=== PATIENT | female | born 1995 | race Caucasian/White ===

== ENCOUNTER 2021-05-31 23:05 | Emergency (ER) | payer OTHER, SELFPAY ==
--- NOTE | ~2021-05-31 | XR_ITS ---
EXAMINATION: XR ABDOMEN KUB CLINICAL INDICATION: Missing suture needle COMPARISON: Previous CT of the abdomen and pelvis July 2017 TECHNIQUE: AP view of the abdomen. FINDINGS: The bowel gas pattern is normal. There is an IUD in the pelvis. There is a surgical device seen to the right of the IUD the pelvis. There is a nasogastric tube with tip projecting over the proximal stomach/GE junction region. There is an endotracheal tube with tip 4.4 cm of the sammy above the sammy. There are 2 parallel curvilinear densities that projects over the right mid chest measuring length of 15 cm and width of 1 to 2 mm of uncertain etiology. No needle is seen. The bowel gas pattern is normal. There is no free air. The visualized lung bases are clear. Bony structures are normal. XR/XR abdomen 1V IMPRESSION: IUD in the pelvis. Likely surgical device in the pelvis to the right of the IUD. Nasogastric tube tip projects over the GE junction. Satisfactory position of endotracheal tube. 2 parallel curvilinear linear densities project over the right mid lung measuring length of approximately 15 cm of uncertain etiology. No needle seen.
--- NOTE | ~2021-05-31 | US_ITS ---
EXAMINATION: US OBSTETRICAL ULTRASOUND CLINICAL INFORMATION: Left-sided pain for 6 hours. Vaginal bleeding. History of 2 C-sections. [address]UD in place. COMPARISON: CT dated 07/29/2017. LMP: 05/16/2021. Gestational age by maternal dates is 2 weeks, 2 days. Estimated date of delivery by maternal dates is 02/20/2022. TECHNIQUE: Ultrasound of the maternal pelvis is performed using transabdominal and transvaginal transducers. Transvaginal imaging is performed due to inadequate visualization transabdominally. M-mode Doppler is also performed. FINDINGS: No intrauterine gestational sac is identified. IUD present within the uterus, appropriately positioned. MATERNAL ADNEXA: The right maternal ovary measures 3.8 x 2.6 x 2.2 cm. Normal arterial and venous waveforms present. The left maternal ovary measures 3.9 x 3.6 x 2.7 cm. There is a 2.0 cm follicle within the left ovary. Normal arterial and venous waveforms present. No adnexal mass is evident. Moderately large volume of fluid within the pelvis. US/US OB pelvic and transvaginal IMPRESSION: * No intrauterine is identified. * No ectopic is seen on the images submitted for review. * Moderate volume pelvic free fluid is nonspecific. * Please correlate with serial hCG levels to document continued decline if missed is suspected. If there is concern for ectopic with rupture, CT is indicated.
[2021-05-31 23:20] VITALS: BP 150/96; PULSE 131; RESP 22; TEMP 37.6; O2SAT 99; BMI 29.0
--- NOTE | 2021-05-31 23:33 | ED.ABDPAIN ---
HPI - Abdominal Pain General Chief Complaint: Abdominal Pain <NAVID Kitchen Last Filed: 06/01/21 02:15> Stated Complaint: abd pain, <NAVID Kitchen Last Filed: 06/01/21 02:15> Time Seen by Provider: 05/31/21 23:09 <NAVID Kitchen Last Filed: 06/01/21 02:15> Source: patient <NAVID Kitchen Last Filed: 06/01/21 02:15> Mode of arrival: ambulatory <NAVID Kitchen Last Filed: 06/01/21 02:15> Limitations: no limitations <NAVID Kitchen Last Filed: 06/01/21 02:15> History of Present Illness HPI narrative: 25-year-old female previously healthy here with reports of left-sided abdominal pain which began around 19:00 this evening. She patient tells me that for the last 3 days she has had vaginal bleeding which has been quite heavy using about 1 pad per hour. No pain until tonight when the pain began quite suddenly around 19:00. It is associated with vomiting. There is no associated diarrhea, urinary symptoms or constipation. Patient tells me her last BM was this morning and normal. Patient has had some breast tenderness and discomfort and so she took a home test today that was positive. Her last menstrual cycle was 2 weeks ago. She has an IUD. <NAVID Kitchen Last Filed: 06/01/21 02:15> Related Data Allergies/Adverse Reactions: Allergies Allergy/AdvReac Type Severity Reaction Status Date / Time No Known Allergies Allergy Unverified 12/29/19 17:59 <NAVID Kitchen Last Filed: 06/01/21 02:15> Review of Systems Review of Systems Yes all other systems are reviewed and are negative <NAVID Kitchen Last Filed: 06/01/21 02:15> Constitutional: Reports no additional constitutional complaints, Denies body ache(s), Denies chills, Denies fever(s), Denies headache(s) and Denies weakness <NAVID Kitchen Last Filed: 06/01/21 02:15> Eyes: Reports no additional eye complaints and Denies change in vision <Laina Jang NP - Last Filed: 06/01/21 02:15> Reports system reviewed and no additional complaints, except as documented, Denies dizziness, Denies headache(s), Denies nasal congestion, Denies nasal discharge and Denies neck pain <Laina Jang NP - Last Filed: 06/01/21 02:15> Cardiovascular: Reports no additional cardiovascular complaints, Denies chest pain, Denies leg edema and Denies dyspnea <Laina Jang NP - Last Filed: 06/01/21 02:15> Respiratory: Reports no additional respiratory complaints, Denies cough and Denies dyspnea <Laina Jang NP - Last Filed: 06/01/21 02:15> Gastrointestinal: Reports no additional gastrointestinal complaints, Reports abdominal pain, Denies diarrhea, Reports nausea and Reports vomiting <Laina Jang NP - Last Filed: 06/01/21 02:15> Genitourinary: Reports no additional female genitourinary complaints, Reports abnormal vaginal bleeding and Denies urinary incontinence <Laian Jang NP - Last Filed: 06/01/21 02:15> Musculoskeletal: Reports no additional musculoskeletal complaints, Denies back pain, Denies arthralgias, Denies joint swelling, Denies neck pain, Denies numbness and Denies tingling <Laina Jang NP - Last Filed: 06/01/21 02:15> Skin/Breast: Reports system reviewed and no additional complaints, except as docu and Denies rash <Laina Jang NP - Last Filed: 06/01/21 02:15> Reports system reviewed and no additional complaints, except as documented, Denies dizziness, Denies headache(s), Denies numbness, Denies tingling and Denies weakness <Laina Jang NP - Last Filed: 06/01/21 02:15> PMFSH Past Medical History Attestation statement: The following information was validated with the patient. <Laina Jang NP - Last Filed: 06/01/21 02:15> Source: old records reviewed and nursing notes reviewed <Laina Jang NP - Last Filed: 06/01/21 02:15> Social History Social History: Social History Alcohol intake: current Patient Tobacco Use Status: Never used Tobacco Use of substances other than those prescribed or required for medical reasons: No Advance Directives: No Patient : Yes <Laina Jang NP - Last Filed: 06/01/21 02:15> Physical Exam ED Vital Signs: Vital Signs - 24 hr 05/31/21 23:20 06/01/21 00:01 06/01/21 02:22 Temperature 99.6 F 98.3 F 97.9 F Pulse Rate 131 H 95 81 Respiratory Rate 22 H 16 12 Blood Pressure 150/96 H 141/73 H 123/65 Pulse Oximetry 99 97 97 BMI result Body Mass Index 29.0 <Laina Jang NP - Last Filed: 06/01/21 02:15> Vital Signs - 24 hr 05/31/21 23:20 06/01/21 00:01 06/01/21 02:22 Temperature 99.6 F 98.3 F 97.9 F Pulse Rate 131 H 95 81 Respiratory Rate 22 H 16 12 Blood Pressure 150/96 H 141/73 H 123/65 Pulse Oximetry 99 97 97 BMI result Body Mass Index 29.0 <Pepper Austin MD - Last Filed: 06/01/21 04:04> Const General: cooperative, healthy appearing, comfortable and no acute distress <Laina Jang NP - Last Filed: 06/01/21 02:15> Orientation/consciousness: patient oriented x3 <Laina Jang NP - Last Filed: 06/01/21 02:15> Limitations: no limitations <Laina Jang NP - Last Filed: 06/01/21 02:15> HENMT Head: Yes normal to inspection <Laina Jang NP - Last Filed: 06/01/21 02:15> Ears: hearing grossly normal bilaterally and TM's normal bilaterally <Laina Jang NP - Last Filed: 06/01/21 02:15> General nose exam: Normal external nose present <Laina Jang NP - Last Filed: 06/01/21 02:15> Face and sinus: Yes normal facial exam <Laina Jang NP - Last Filed: 06/01/21 02:15> Mouth: Normal oral and palatal mucosa present <Laina Jang NP - Last Filed: 06/01/21 02:15> Teeth and gingiva: dentition normal <Laina Jang NP - Last Filed: 06/01/21 02:15> Throat: Yes posterior oropharynx normal and Yes tonsils normal <Laina Jang NP - Last Filed: 06/01/21 02:15> Eyes General: appearance normal, both eyes and all related structures <Laina Jang NP - Last Filed: 06/01/21 02:15> Pupils: Equal, round and reactive pupils present <Laina Jang NP - Last Filed: 06/01/21 02:15> Neck Neck: Yes normal visual inspection, Yes full ROM, Yes no lymphadenopathy and Yes no meningeal signs <Laina Jang NP - Last Filed: 06/01/21 02:15> Chest Chest palpation & inspection: normal inspection of the chest <Laina Jang NP - Last Filed: 06/01/21 02:15> Resp Effort & Inspection: normal respiratory effort <Laina Jang NP - Last Filed: 06/01/21 02:15> Auscultation: clear to auscultation bilaterally <Laina Jang NP - Last Filed: 06/01/21 02:15> Cardio Rate: regular rate <Laina Jang NP - Last Filed: 06/01/21 02:15> Peripheral pulses: Peripheral pulses 2+ throughout <Laina Jang NP - Last Filed: 06/01/21 02:15> GI Inspection: Yes normal to inspection <Laina Jang NP - Last Filed: 06/01/21 02:15> Palpation (GI): Soft to palpation and Tenderness to palpation present (GI) (Left sided with guarding-no rebound) <Laina Jang NP - Last Filed: 06/01/21 02:15> General: Yes no CVA tenderness <Laina Jang NP - Last Filed: 06/01/21 02:15> Back/Spine/Pelvis Back: no CVA tenderness <Laina Jang NP - Last Filed: 06/01/21 02:15> Skin General skin exam: no rashes or lesions noted <Laina Jang NP - Last Filed: 06/01/21 02:15> Neuro General: patient oriented x3 and no meningeal signs <Laina Jang NP - Last Filed: 06/01/21 02:15> Cranial nerves: Yes CN's II-XII intact bilaterally, Yes Equal, round and reactive pupils present, Yes Bilaterally intact EOM present, Yes Nystagmus not present, Yes Normal facial strength present and Yes Midline tongue present <Laina Jang NP - Last Filed: 06/01/21 02:15> Cognition (Neuro): normal cognition <Laina Jang NP - Last Filed: 06/01/21 02:15> Gait exam (Neuro): Normal gait present <Laina Jang NP - Last Filed: 06/01/21 02:15> Motor exam (neuro): 5/5 motor strength present throughout <Laina Jang NP - Last Filed: 06/01/21 02:15> Sensory Exam: Normal double simultaneous stimulation for sensation <Laina Jang NP - Last Filed: 06/01/21 02:15> Extrem General: Yes normal to inspection, Yes no pedal edema and Yes no calf tenderness <Laina Jang NP - Last Filed: 06/01/21 02:15> Course Course Course Narrative: 25-year-old female here with reports of sudden onset of left-sided abdominal pain w/ vomiting which began at 19:00. Of note, patient has had some vaginal bleeding over the last 3 days and took a home test that was positive. LMP ? 2 weeks ago. On exam the patient has moderate left-sided abdominal tenderness with guarding but no rebound. She is tachycardic on arrival and vomiting. Her blood pressure is stable. Dr Austin brought direct to bedside for US. No free fluid seen. Will check labs, UA, urine , ultrasound to rule out hold the topic and/or ovarian torsion 0200-Urine is +. Beta quant 857. Hemoglobin is stable. Returned from US. Continued pain. Exquisitely tender per US tech on the left side during US. Will repeat analgesia and antiemetic. Signout to Dr Austin pending above. <Laina Jang NP - Last Filed: 06/01/21 02:15> Reevaluation(s) Reevaluation #1: I have discussed this case with Dr. Jack and repeated CBC, on review of ultrasound findings and in discussion with Radiology the fluid within the abdomen appears most consistent with blood. Plans are likely to take the patient to the OR. <Pepper Austin MD - Last Filed: 06/01/21 04:04> Time: 03:42 <Pepper Austin MD - Last Filed: 06/01/21 04:04> Reevaluation #2: Patient to the OR for diagnostic laparoscopy <Pepper Austin MD - Last Filed: 06/01/21 04:04> Time: 04:02 <Pepper Austin MD - Last Filed: 06/01/21 04:04> MDM - Abdominal Pain MDM Narrative Medical decision making narrative: Ovarian torsion, ectopic <Laina Jang NP - Last Filed: 06/01/21 02:15> Medical Records Attestation: I reviewed the patient's medical records. <Laina Jang NP - Last Filed: 06/01/21 02:15> Lab Data Attestation: I reviewed the patient's lab results. <Laina Jang NP - Last Filed: 06/01/21 02:15> Result diagrams: : 06/01/21 03:23 05/31/21 23:43 <Laina Jang NP - Last Filed: 06/01/21 02:15> Labs: Lab Results 05/31/21 05/31/21 05/31/21 Range/Units 23:43 23:43 23:43 WBC 12.6 H (4.8-10.8) X10*3/uL RBC 4.23 (4.20-5.50) X10*6/uL Hgb 12.4 (12.0-16.0) g/dl Hct 36.6 L (37.0-47.0) % MCV 86.5 (80.0-98.0) fL MCH 29.3 (27.0-33.0) pg MCHC 33.9 (31.0-35.0) g/dl RDW 12.5 (11.0-16.0) % Plt Count 312 (160-400) X10*3/uL MPV 10.6 (9.4-12.3) fL Immature Gran % (Auto) 0.2 (0.0-0.4) % Neut % (Auto) 67.0 (45-73) % Lymph % (Auto) 21.2 (20-40) % Greenlee % (Auto) 6.5 (2-11) % Eos % (Auto) 4.6 H (0-4) % Baso % (Auto) 0.5 (0-2) % Lymph # (Auto) 2.7 (1.2-4.9) X10*3/uL Greenlee # (Auto) 0.8 (0.1-1.2) X10*3/uL Eos # (Auto) 0.6 H (0.0-0.4) X10*3/uL Baso # (Auto) 0.1 (0.0-0.2) X10*3/uL Abs Immat Gran (auto) 0.03 (0.00-0.03) X10*3/uL Absolute Neuts (auto) 8.4 H (2.0-8.3) x10*3/uL Absolute Nucleated RBC 0.000 (0.0-0.012) X10*3/uL Nucleated RBC % (auto) 0.0 (0.0-0.2) /100WBC PT (9.9-13.0) SEC INR (0.9-1.1) Sodium 137 (135-145) mmol/L Potassium 3.6 (3.3-5.1) mmol/L Chloride 104 (96-108) mmol/L Carbon Dioxide 25 (22-29) mmol/L Anion Gap 12 (12-20) BUN 9 (9-16) mg/dL Creatinine 0.98 (0.5-1.4) mg/dL Estim Creat Clear Calc 93.7 Estimated GFR > 60 Random Glucose 112 (60-115) mg/dL Lactic Acid 1.5 (0.5-2.0) mmol/L Calcium 9.6 (8.4-10.2) mg/dL Total Bilirubin 0.2 (0.0-1.0) mg/dL Direct Bilirubin < 0.2 (0.0-0.5) mg/dL AST 14 (5-31) U/L ALT 21 (0-31) U/L Alkaline Phosphatase 88 (39-117) U/L Total Protein 6.9 (6.5-8.0) g/dL Albumin 4.5 (3.5-5.0) g/dL Beta HCG, Quant 857 mIU/mL Urine Color Urine Appearance Urine pH (5.0-8.0) Ur Specific [place] (1.005-1.025) Urine Protein (NEG-TRACE) MG/DL Urine Glucose (UA) (NEG) MG/DL Urine Ketones (NEG) MG/DL Urine Blood (NEG) Urine Nitrite (NEG) Ur Leukocyte Esterase (NEG) Urine Test (NEGATIVE) Blood Type 05/31/21 05/31/21 06/01/21 Range/Units 23:57 23:57 00:05 WBC (4.8-10.8) X10*3/uL RBC (4.20-5.50) X10*6/uL Hgb (12.0-16.0) g/dl Hct (37.0-47.0) % MCV (80.0-98.0) fL MCH (27.0-33.0) pg MCHC (31.0-35.0) g/dl RDW (11.0-16.0) % Plt Count (160-400) X10*3/uL MPV (9.4-12.3) fL Immature Gran % (Auto) (0.0-0.4) % Neut % (Auto) (45-73) % Lymph % (Auto) (20-40) % Greenlee % (Auto) (2-11) % Eos % (Auto) (0-4) % Baso % (Auto) (0-2) % Lymph # (Auto) (1.2-4.9) X10*3/uL Greenlee # (Auto) (0.1-1.2) X10*3/uL Eos # (Auto) (0.0-0.4) X10*3/uL Baso # (Auto) (0.0-0.2) X10*3/uL Abs Immat Gran (auto) (0.00-0.03) X10*3/uL Absolute Neuts (auto) (2.0-8.3) x10*3/uL Absolute Nucleated RBC (0.0-0.012) X10*3/uL Nucleated RBC % (auto) (0.0-0.2) /100WBC PT 10.1 (9.9-13.0) SEC INR 0.9 (0.9-1.1) Sodium (135-145) mmol/L Potassium (3.3-5.1) mmol/L Chloride (96-108) mmol/L Carbon Dioxide (22-29) mmol/L Anion Gap (12-20) BUN (9-16) mg/dL Creatinine (0.5-1.4) mg/dL Estim Creat Clear Calc Estimated GFR Random Glucose (60-115) mg/dL Lactic Acid (0.5-2.0) mmol/L Calcium (8.4-10.2) mg/dL Total Bilirubin (0.0-1.0) mg/dL Direct Bilirubin (0.0-0.5) mg/dL AST (5-31) U/L ALT (0-31) U/L Alkaline Phosphatase (39-117) U/L Total Protein (6.5-8.0) g/dL Albumin (3.5-5.0) g/dL Beta HCG, Quant mIU/mL Urine Color YELLOW Urine Appearance CLEAR Urine pH 6.0 (5.0-8.0) Ur Specific [place] 1.020 (1.005-1.025) Urine Protein NEG (NEG-TRACE) MG/DL Urine Glucose (UA) NEG (NEG) MG/DL Urine Ketones NEG (NEG) MG/DL Urine Blood NEG (NEG) Urine Nitrite NEG (NEG) Ur Leukocyte Esterase NEG (NEG) Urine Test (NEGATIVE) Blood Type B Positive 06/01/21 06/01/21 Range/Units 00:05 03:23 WBC 11.7 H (4.8-10.8) X10*3/uL RBC 3.76 L (4.20-5.50) X10*6/uL Hgb 11.0 L (12.0-16.0) g/dl Hct 32.7 L (37.0-47.0) % MCV 87.0 (80.0-98.0) fL MCH 29.3 (27.0-33.0) pg MCHC 33.6 (31.0-35.0) g/dl RDW 12.4 (11.0-16.0) % Plt Count 256 (160-400) X10*3/uL MPV 10.5 (9.4-12.3) fL Immature Gran % (Auto) 0.3 (0.0-0.4) % Neut % (Auto) 76.2 H (45-73) % Lymph % (Auto) 15.8 L (20-40) % Greenlee % (Auto) 5.4 (2-11) % Eos % (Auto) 2.0 (0-4) % Baso % (Auto) 0.3 (0-2) % Lymph # (Auto) 1.9 (1.2-4.9) X10*3/uL Greenlee # (Auto) 0.6 (0.1-1.2) X10*3/uL Eos # (Auto) 0.2 (0.0-0.4) X10*3/uL Baso # (Auto) 0.0 (0.0-0.2) X10*3/uL Abs Immat Gran (auto) 0.03 (0.00-0.03) X10*3/uL Absolute Neuts (auto) 8.9 H (2.0-8.3) x10*3/uL Absolute Nucleated RBC 0.000 (0.0-0.012) X10*3/uL Nucleated RBC % (auto) 0.0 (0.0-0.2) /100WBC PT (9.9-13.0) SEC INR (0.9-1.1) Sodium (135-145) mmol/L Potassium (3.3-5.1) mmol/L Chloride (96-108) mmol/L Carbon Dioxide (22-29) mmol/L Anion Gap (12-20) BUN (9-16) mg/dL Creatinine (0.5-1.4) mg/dL Estim Creat Clear Calc Estimated GFR Random Glucose (60-115) mg/dL Lactic Acid (0.5-2.0) mmol/L Calcium (8.4-10.2) mg/dL Total Bilirubin (0.0-1.0) mg/dL Direct Bilirubin (0.0-0.5) mg/dL AST (5-31) U/L ALT (0-31) U/L Alkaline Phosphatase (39-117) U/L Total Protein (6.5-8.0) g/dL Albumin (3.5-5.0) g/dL Beta HCG, Quant mIU/mL Urine Color Urine Appearance Urine pH (5.0-8.0) Ur Specific [place] (1.005-1.025) Urine Protein (NEG-TRACE) MG/DL Urine Glucose (UA) (NEG) MG/DL Urine Ketones (NEG) MG/DL Urine Blood (NEG) Urine Nitrite (NEG) Ur Leukocyte Esterase (NEG) Urine Test POSITIVE H (NEGATIVE) Blood Type <Laina Jang, [employer] - Last Filed: 06/01/21 02:15> Lab Results 05/31/21 05/31/21 05/31/21 Range/Units 23:43 23:43 23:43 WBC 12.6 H (4.8-10.8) X10*3/uL RBC 4.23 (4.20-5.50) X10*6/uL Hgb 12.4 (12.0-16.0) g/dl Hct 36.6 L (37.0-47.0) % MCV 86.5 (80.0-98.0) fL MCH 29.3 (27.0-33.0) pg MCHC 33.9 (31.0-35.0) g/dl RDW 12.5 (11.0-16.0) % Plt Count 312 (160-400) X10*3/uL MPV 10.6 (9.4-12.3) fL Immature Gran % (Auto) 0.2 (0.0-0.4) % Neut % (Auto) 67.0 (45-73) % Lymph % (Auto) 21.2 (20-40) % Greenlee % (Auto) 6.5 (2-11) % Eos % (Auto) 4.6 H (0-4) % Baso % (Auto) 0.5 (0-2) % Lymph # (Auto) 2.7 (1.2-4.9) X10*3/uL Greenlee # (Auto) 0.8 (0.1-1.2) X10*3/uL Eos # (Auto) 0.6 H (0.0-0.4) X10*3/uL Baso # (Auto) 0.1 (0.0-0.2) X10*3/uL Abs Immat Gran (auto) 0.03 (0.00-0.03) X10*3/uL Absolute Neuts (auto) 8.4 H (2.0-8.3) x10*3/uL Absolute Nucleated RBC 0.000 (0.0-0.012) X10*3/uL Nucleated RBC % (auto) 0.0 (0.0-0.2) /100WBC PT (9.9-13.0) SEC INR (0.9-1.1) Sodium 137 (135-145) mmol/L Potassium 3.6 (3.3-5.1) mmol/L Chloride 104 (96-108) mmol/L Carbon Dioxide 25 (22-29) mmol/L Anion Gap 12 (12-20) BUN 9 (9-16) mg/dL Creatinine 0.98 (0.5-1.4) mg/dL Estim Creat Clear Calc 93.7 Estimated GFR > 60 Random Glucose 112 (60-115) mg/dL Lactic Acid 1.5 (0.5-2.0) mmol/L Calcium 9.6 (8.4-10.2) mg/dL Total Bilirubin 0.2 (0.0-1.0) mg/dL Direct Bilirubin < 0.2 (0.0-0.5) mg/dL AST 14 (5-31) U/L ALT 21 (0-31) U/L Alkaline Phosphatase 88 (39-117) U/L Total Protein 6.9 (6.5-8.0) g/dL Albumin 4.5 (3.5-5.0) g/dL Beta HCG, Quant 857 mIU/mL Urine Color Urine Appearance Urine pH (5.0-8.0) Ur Specific [place] (1.005-1.025) Urine Protein (NEG-TRACE) MG/DL Urine Glucose (UA) (NEG) MG/DL Urine Ketones (NEG) MG/DL Urine Blood (NEG) Urine Nitrite (NEG) Ur Leukocyte Esterase (NEG) Urine Test (NEGATIVE) Blood Type 05/31/21 05/31/21 06/01/21 Range/Units 23:57 23:57 00:05 WBC (4.8-10.8) X10*3/uL RBC (4.20-5.50) X10*6/uL Hgb (12.0-16.0) g/dl Hct (37.0-47.0) % MCV (80.0-98.0) fL MCH (27.0-33.0) pg MCHC (31.0-35.0) g/dl RDW (11.0-16.0) % Plt Count (160-400) X10*3/uL MPV (9.4-12.3) fL Immature Gran % (Auto) (0.0-0.4) % Neut % (Auto) (45-73) % Lymph % (Auto) (20-40) % Greenlee % (Auto) (2-11) % Eos % (Auto) (0-4) % Baso % (Auto) (0-2) % Lymph # (Auto) (1.2-4.9) X10*3/uL Greenlee # (Auto) (0.1-1.2) X10*3/uL Eos # (Auto) (0.0-0.4) X10*3/uL Baso # (Auto) (0.0-0.2) X10*3/uL Abs Immat Gran (auto) (0.00-0.03) X10*3/uL Absolute Neuts (auto) (2.0-8.3) x10*3/uL Absolute Nucleated RBC (0.0-0.012) X10*3/uL Nucleated RBC % (auto) (0.0-0.2) /100WBC PT 10.1 (9.9-13.0) SEC INR 0.9 (0.9-1.1) Sodium (135-145) mmol/L Potassium (3.3-5.1) mmol/L Chloride (96-108) mmol/L Carbon Dioxide (22-29) mmol/L Anion Gap (12-20) BUN (9-16) mg/dL Creatinine (0.5-1.4) mg/dL Estim Creat Clear Calc Estimated GFR Random Glucose (60-115) mg/dL Lactic Acid (0.5-2.0) mmol/L Calcium (8.4-10.2) mg/dL Total Bilirubin (0.0-1.0) mg/dL Direct Bilirubin (0.0-0.5) mg/dL AST (5-31) U/L ALT (0-31) U/L Alkaline Phosphatase (39-117) U/L Total Protein (6.5-8.0) g/dL Albumin (3.5-5.0) g/dL Beta HCG, Quant mIU/mL Urine Color YELLOW Urine Appearance CLEAR Urine pH 6.0 (5.0-8.0) Ur Specific [place] 1.020 (1.005-1.025) Urine Protein NEG (NEG-TRACE) MG/DL Urine Glucose (UA) NEG (NEG) MG/DL Urine Ketones NEG (NEG) MG/DL Urine Blood NEG (NEG) Urine Nitrite NEG (NEG) Ur Leukocyte Esterase NEG (NEG) Urine Test (NEGATIVE) Blood Type B Positive 06/01/21 06/01/21 Range/Units 00:05 03:23 WBC 11.7 H (4.8-10.8) X10*3/uL RBC 3.76 L (4.20-5.50) X10*6/uL Hgb 11.0 L (12.0-16.0) g/dl Hct 32.7 L (37.0-47.0) % MCV 87.0 (80.0-98.0) fL MCH 29.3 (27.0-33.0) pg MCHC 33.6 (31.0-35.0) g/dl RDW 12.4 (11.0-16.0) % Plt Count 256 (160-400) X10*3/uL MPV 10.5 (9.4-12.3) fL Immature Gran % (Auto) 0.3 (0.0-0.4) % Neut % (Auto) 76.2 H (45-73) % Lymph % (Auto) 15.8 L (20-40) % Greenlee % (Auto) 5.4 (2-11) % Eos % (Auto) 2.0 (0-4) % Baso % (Auto) 0.3 (0-2) % Lymph # (Auto) 1.9 (1.2-4.9) X10*3/uL Greenlee # (Auto) 0.6 (0.1-1.2) X10*3/uL Eos # (Auto) 0.2 (0.0-0.4) X10*3/uL Baso # (Auto) 0.0 (0.0-0.2) X10*3/uL Abs Immat Gran (auto) 0.03 (0.00-0.03) X10*3/uL Absolute Neuts (auto) 8.9 H (2.0-8.3) x10*3/uL Absolute Nucleated RBC 0.000 (0.0-0.012) X10*3/uL Nucleated RBC % (auto) 0.0 (0.0-0.2) /100WBC PT (9.9-13.0) SEC INR (0.9-1.1) Sodium (135-145) mmol/L Potassium (3.3-5.1) mmol/L Chloride (96-108) mmol/L Carbon Dioxide (22-29) mmol/L Anion Gap (12-20) BUN (9-16) mg/dL Creatinine (0.5-1.4) mg/dL Estim Creat Clear Calc Estimated GFR Random Glucose (60-115) mg/dL Lactic Acid (0.5-2.0) mmol/L Calcium (8.4-10.2) mg/dL Total Bilirubin (0.0-1.0) mg/dL Direct Bilirubin (0.0-0.5) mg/dL AST (5-31) U/L ALT (0-31) U/L Alkaline Phosphatase (39-117) U/L Total Protein (6.5-8.0) g/dL Albumin (3.5-5.0) g/dL Beta HCG, Quant mIU/mL Urine Color Urine Appearance Urine pH (5.0-8.0) Ur Specific [place] (1.005-1.025) Urine Protein (NEG-TRACE) MG/DL Urine Glucose (UA) (NEG) MG/DL Urine Ketones (NEG) MG/DL Urine Blood (NEG) Urine Nitrite (NEG) Ur Leukocyte Esterase (NEG) Urine Test POSITIVE H (NEGATIVE) Blood Type <Pepper Austin MD - Last Filed: 06/01/21 04:04> Discharge Plan Discharge Clinical Impression: Hemoperitoneum, Abdominal pain, <Laina Jang NP - Last Filed: 06/01/21 02:15> Patient Disposition: Admitted As Inpatient <Laina Jang NP - Last Filed: 06/01/21 02:15>
[2021-05-31 23:48] LABS: MANUAL DIFF FLAG NO
[2021-05-31 23:49] LABS: Basophils Absolute Auto 0.1 X10*3/uL (0.0-0.2); Basophils Percent Auto 0.5 % (0-2); Eosinophils Absolute Auto 0.6 X10*3/uL (0.0-0.4); Eosinophils Percent Auto 4.6 % (0-4); Hematocrit 36.6 % (37.0-47.0); Hemoglobin 12.4 g/dl (12.0-16.0); Imm Gran Abs Auto 0.03 X10*3/uL (0.00-0.03); Imm Gran Pct Auto 0.2 % (0.0-0.4); Lymphocytes Absolute Auto 2.7 X10*3/uL (1.2-4.9); Lymphocytes Percent Auto 21.2 % (20-40); Mean Corpuscular HGB Conc 33.9 g/dl (31.0-35.0); Mean Corpuscular Hemoglobin 29.3 pg (27.0-33.0); Mean Corpuscular Volume 86.5 fL (80.0-98.0); Mean Platelet Volume 10.6 fL (9.4-12.3); Monocytes Absolute Auto 0.8 X10*3/uL (0.1-1.2); Monocytes Percent Auto 6.5 % (2-11); Neutrophils Absolute Auto 8.4 x10*3/uL (2.0-8.3); Platelet Count 312 X10*3/uL (160-400); Red Blood Count 4.23 X10*6/uL (4.20-5.50); Red Cell Distribution Width 12.5 % (11.0-16.0); White Blood Count 12.6 X10*3/uL (4.8-10.8)
[2021-06-01] VITALS (13 sets, daily range): BP systolic 109–143; BP diastolic 49–76; PULSE 75–121; RESP 12–18; TEMP 36.4–36.9; O2SAT 93–100
[2021-06-01 00:02] LABS: Lactic Acid 1.5 mmol/L (0.5-2.0)
[2021-06-01] MEDS: Morphine Sulfate 4 MG/ML CARTRIDGE IVPUSH ×2 (00:04→02:17)
[2021-06-01] MEDS: ondansetron HCL 4 MG/2 ML VIAL IVPUSH ×3 (00:04→09:51)
[2021-06-01] MEDS: 0.9 % Sodium Chloride 1,000 ML 999 ML IV (00:04)
[2021-06-01 00:10] LABS: Alanine Aminotransferase 21 U/L (0-31); Albumin Level 4.5 g/dL (3.5-5.0); Alkaline Phosphatase 88 U/L (39-117); Anion Gap 12 (12-20); Aspartate Amino Transferase 14 U/L (5-31); Bilirubin Direct < 0.2 mg/dL (0.0-0.5); Bilirubin Total 0.2 mg/dL (0.0-1.0); Blood Urea Nitrogen 9 mg/dL (9-16); Calcium 9.6 mg/dL (8.4-10.2); Carbon Dioxide 25 mmol/L (22-29); Chloride 104 mmol/L (96-108); Creatinine Clr Calc Pharmacy 93.7; Estimated Glomerular Filt Rate > 60; Glucose Random 112 mg/dL (60-115); Potassium 3.6 mmol/L (3.3-5.1); Sodium 137 mmol/L (135-145); Total Protein 6.9 g/dL (6.5-8.0)
[2021-06-01 00:13] LABS: Appearance Urine CLEAR; Color Urine YELLOW; Glucose Urine UA NEG (NEG); Leukocyte Esterase Urine NEG (NEG); Nitrite Urine NEG (NEG); Urine Blood NEG (NEG); Urine Ketones NEG (NEG); Urine Protein NEG (NEG-TRACE)
[2021-06-01 00:15] LABS: INTERNATIONAL NORM RATIO 0.9 (0.9-1.1); Prothrombin Time 10.1 SEC (9.9-13.0)
[2021-06-01 00:15] LABS: UPreg QC Valid YES; Urine Pregnancy POSITIVE (NEGATIVE)
[2021-06-01 00:16] LABS: HCG Quantitative 857 mIU/mL
--- NOTE | 2021-06-01 02:53 | PM.GYNCN ---
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 The pain was acute and sharp and started around 19:00. The patient has been having heavy vaginal bleeding last 3 days with passage of small blood clot.? There is no other associated GI or symptoms.? Home test today was done and was positive.? LMP was 2 weeks ago. She has an IUD. Blood type is B positive. Patient states that this is undesirable. A call to the radiologist Dr KELLY HENDRIX by regarding the fluid in the pelvis seen on ultrasound, he stated that it looks like low level internal echoes can be seen with blood i.e. hemoperitoneum. HCG 857 H and H at 23:43 was 12.4/36.6 repeated at 03:23 was 11/32.7. A pelvic ultrasound showed the following: No intrauterine gestational sac is identified. IUD present within the uterus, appropriately positioned. MATERNAL ADNEXA: ? ? The right maternal ovary measures 3.8 x 2.6 x 2.2 cm.? Normal arterial and venous waveforms present. The left maternal ovary measures 3.9 x 3.6 x 2.7 cm.? There is a 2.0 cm follicle within the left ovary. Normal arterial and venous waveforms present. No adnexal mass is evident.? Moderately large volume of fluid within the pelvis. 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 Review of Systems ROS Unobtainable: All systems reviewed & are unremarkable except as noted in HPI and below Cardiovascular: Denies Palpatations, Loss of consciousness or Chest pain Respiratory: Denies Cough, Wheezing or Shortness of breath Musculoskeletal: Denies Low back pain Gastrointestinal: Denies Heartburn, Constipation, Diarrhea, Nausea or Vomiting Genitourinary: Denies Pain with urination, Burning with urination or Urinary frequency Neurological: Denies Migranes Psychological: Denies Depression [facility] Social History Social History Alcohol intake: current Patient Tobacco Use Status: Never used Tobacco Use of substances other than those prescribed or required for medical reasons: No Advance Directives: No Patient : Yes Meds Allergies Allergy/AdvReac Type Severity Reaction Status Date / Time No Known Allergies Allergy Unverified 12/29/19 17:59 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 Physical Exam Vitals Vital signs: Temp Pulse Resp BP Pulse Ox 97.9 F 81 12 123/65 97 06/01/21 02:22 06/01/21 02:22 06/01/21 02:22 06/01/21 02:22 06/01/21 02:22 BMI result Body Mass Index 29.0 Constitutional General Appearance: Healthy appearing, Well-nourished and Well-developed Psychiatric Mood and Affect: active and alert, normal mood and normal affect Skin Appearance: No rashes and No lesions Lungs Respiratory Effort: No intercostal retractions Auscultation: Clear to auscultation Cardiovascular Auscultation: RRR Abdomen Auscultation/Inspection/Palpation: Normal bowel sounds, Soft, Non-distended and Tenderness Female Genitalia (Pelvic) Bladder/Urethra: Normal meatus Vulva: No lesions Uterus: Normal size and Tender Adnexa/Parametria: Adnexal Tenderness: Bilateral and Adnexal Mass: None Additional Comments: IUD string seen 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 - Results Labs CBC & Chem 7: 06/01/21 03:23 05/31/21 23:43 Labs: Short CBC 05/31/21 Range/Units 23:43 WBC 12.6 H (4.8-10.8) X10*3/uL Hgb 12.4 (12.0-16.0) g/dl Hct 36.6 L (37.0-47.0) % Plt Count 312 (160-400) X10*3/uL BMP 05/31/21 23:43 Sodium 137 Potassium 3.6 Chloride 104 Carbon Dioxide 25 BUN 9 Creatinine 0.98 Calcium 9.6 Liver Function 05/31/21 Range/Units 23:43 Total Bilirubin 0.2 (0.0-1.0) mg/dL Direct Bilirubin < 0.2 (0.0-0.5) mg/dL AST 14 (5-31) U/L ALT 21 (0-31) U/L Alkaline Phosphatase 88 (39-117) U/L Albumin 4.5 (3.5-5.0) g/dL Urine 06/01/21 06/01/21 Range/Units 00:05 00:05 Urine Color YELLOW Urine Appearance CLEAR Urine pH 6.0 (5.0-8.0) Ur Specific [place] 1.020 (1.005-1.025) Urine Protein NEG (NEG-TRACE) MG/DL Urine Glucose (UA) NEG (NEG) MG/DL Urine Test POSITIVE H (NEGATIVE) Imaging US - abdomen: Radiologist's impression: ITS Impressions Pelvic/Transvag US 06/01/21 01:55 IMPRESSION: * No intrauterine is identified. * No ectopic is seen on the images submitted for review. * Moderate volume pelvic free fluid is nonspecific. * Please correlate with serial hCG levels to document continued decline if missed is suspected. If there is concern for ectopic with rupture, CT is indicated. Assessment and Plan (1) : Status: Acute GC and chlamydia taken. Discussed with the patient differential diagnosis of including but not limited to: early intrauterine , SAB, ectopic early or ruptured. the patient stated that this is an undesired and is not interested in future fertility (2) First trimester bleeding: Status: Acute Differential diagnosis discussed with the patient includes but not limited to: 1st trimester bleeding could be SAB, normal early intrauterine with first-trimester bleeding or ectopic (3) IUD failure, : Status: Acute Discussed with the patient the failure rate of IUD and that 25% of with IUD will be ectopic . Also discussed the patient the risk of septic with if IUD is kept in place and the risk of SAB during IUD removal, recommended IUD removal, the patient agreed (4) Hemoperitoneum: Status: Acute Differential diagnosis discussed with the patient for hemoperitoneum can be a ruptured ovarian cyst versus tubal . Given the different clinical scenario possibilities early IUP versus SAB versus ectopic (early versus ruptured), with and without ruptured ovarian cyst causing hemoperitoneum, and IUD in , given the fact the patient stated that this is undesired; in an effort to rule out ruptured ectopic causing hemoperitoneum I recommended to the patient diagnostic laparoscopy with possible salpingostomy/salpingectomy (partial or complete), with IUD removal with or without suction D&C and follow-up afterwards by checking pathology and serial hCG levels. Discussed with the patient that the diagnostic laparoscopy might miss an early ectopic , which will be treated later with methotrexate, with a 15% failure rate that might necessitate additional future surgical intervention. Explained to the patient that the use of curettage as a diagnostic tool is limited by the potential for disruption of a viable .? In addition, discussed with the patient that the sensitivity of curettage in finding chorionic villi is only 70 percent. If curettage is performed, serum HCG levels can be followed postcurettage if histopathology does not confirm the clinical impression. When an IUP has been evacuated, hCG levels should drop by at least 15 percent the day after evacuation.? There might be an advantage of performing aspiration only on patients with both an HCG concentration below the discriminatory zone , since 30 percent of these patients have a nonviable intrauterine gestation, and the remainder have an ectopic . Discussed with the patient the advantage of not proceeding with a suction D&C, in case of viable intrauterine , suction D&C would interrupt this . Also discussed with the patient the risks of suction D&C including but not limited to bleeding, infection, possible uterine perforation and injury to bladder, bowel ureter or uterine adhesions, negatively affecting future fertility. The alternative of not proceeding with a suction D&C would be to follow with hCG postop and treat accordingly. The patient verbalized understanding and decided toproceed with a suction D&C . Last, discussed with the patient that in case during surgery there is uncertainty regarding the appearance of the fallopian with respect to the diagnosis of ectopic , there are 2 options of treatment either proceed with salpingectomy for diagnostic purposes at the risk of removing 1 tube with the potential of negatively affecting future fertility in case negative pathology for ectopic , the other option would be to proceed with expectant management and treat medically post operatively with methotrexate; the patient decided to proceed salpingectomy to avoid treatment with methotrexate if possibleor future surgeries and since she stated that she is not interested in a future fertility. Discussed with the patient Thepossible complications of the procedure including but not limited to, interruption of a viable , bleeding, infection, possible injury to bladder, ureter, blood vessels, possible need for blood transfusion with all its risks possible uterine perforation, possible negative impact on future fertility. Again the patient reiterated that this is undesirable agreed with the plan and signed the consent . Plan Postoperatively is to follow-up with hCG within 24 hours, then every 48 hours and will check pathology, and treat accordingly
[2021-06-01 03:28] LABS: Basophils Percent Auto 0.3 % (0-2); Eosinophils Absolute Auto 0.2 X10*3/uL (0.0-0.4); Hematocrit 32.7 % (37.0-47.0); Imm Gran Abs Auto 0.03 X10*3/uL (0.00-0.03); Imm Gran Pct Auto 0.3 % (0.0-0.4); Lymphocytes Absolute Auto 1.9 X10*3/uL (1.2-4.9); Lymphocytes Percent Auto 15.8 % (20-40); MANUAL DIFF FLAG NO; Mean Corpuscular HGB Conc 33.6 g/dl (31.0-35.0); Mean Corpuscular Hemoglobin 29.3 pg (27.0-33.0); Mean Platelet Volume 10.5 fL (9.4-12.3); Monocytes Absolute Auto 0.6 X10*3/uL (0.1-1.2); Monocytes Percent Auto 5.4 % (2-11); Neutrophils Absolute Auto 8.9 x10*3/uL (2.0-8.3); Neutrophils Percent Auto 76.2 % (45-73); Platelet Count 256 X10*3/uL (160-400); Red Blood Count 3.76 X10*6/uL (4.20-5.50); Red Cell Distribution Width 12.4 % (11.0-16.0); White Blood Count 11.7 X10*3/uL (4.8-10.8)
[2021-06-01] MEDS: HYDROmorphone HCl 0.5 MG/0.5 ML SYRINGE 0.25 MG IVPUSH (04:01)
[2021-06-01 04:04] LABS: COVID-19 Test Negative (Negative)
--- NOTE | 2021-06-01 05:16 | P.CONAN_ITS ---
[facility] Active Problems Active Problems: All Active Problems (Updated 06/01/21 @ 04:10 by Jairo Jack MD) IUD failure, (Acute) First trimester bleeding (Acute) Abdominal pain (Acute) Hemoperitoneum (Acute) (Acute) Past Medical History Functional capacity: independent ambulation Patient : Yes Family History Family history of problems with anesthesia: No Surgical History History of Problems with Anesthesia: No Social History Social History Alcohol intake: current Patient Tobacco Use Status: Never used Tobacco Use of substances other than those prescribed or required for medical reasons: No Advance Directives: No Patient : Yes Meds Allergies Allergy/AdvReac Type Severity Reaction Status Date / Time No Known Allergies Allergy Unverified 12/29/19 17:59 Exam Exam Date and Time: June 01, 2021 0516 Height,Weight and Vital Signs: Height 5 ft 6 in Weight 81.647 kg Last Vital Signs Temp 98.4 F 06/01/21 04:22 Pulse 84 06/01/21 04:22 Resp 12 06/01/21 04:22 BP 128/70 06/01/21 04:22 Pulse Ox 95 06/01/21 04:22 Pertinent Lab Results Pertinent Lab Results: Laboratory Tests 05/31/21 05/31/21 05/31/21 23:43 23:43 23:43 WBC 12.6 H RBC 4.23 Hgb 12.4 Hct 36.6 L MCV 86.5 MCH 29.3 MCHC 33.9 RDW 12.5 Plt Count 312 MPV 10.6 Immature Gran % (Auto) 0.2 Neut % (Auto) 67.0 Lymph % (Auto) 21.2 Henry % (Auto) 6.5 Eos % (Auto) 4.6 H Baso % (Auto) 0.5 Lymph # (Auto) 2.7 Henry # (Auto) 0.8 Eos # (Auto) 0.6 H Baso # (Auto) 0.1 Abs Immat Gran (auto) 0.03 Absolute Neuts (auto) 8.4 H Absolute Nucleated RBC 0.000 Nucleated RBC % (auto) 0.0 PT INR Sodium 137 Potassium 3.6 Chloride 104 Carbon Dioxide 25 Anion Gap 12 BUN 9 Creatinine 0.98 Estim Creat Clear Calc 93.7 Estimated GFR > 60 Random Glucose 112 Lactic Acid 1.5 Calcium 9.6 Total Bilirubin 0.2 Direct Bilirubin < 0.2 AST 14 ALT 21 Alkaline Phosphatase 88 Total Protein 6.9 Albumin 4.5 Beta HCG, Quant 857 Urine Color Urine Appearance Urine pH Ur Specific [place] Urine Protein Urine Glucose (UA) Urine Ketones Urine Blood Urine Nitrite Ur Leukocyte Esterase Urine Test COVID-19 (DIA) COVID-19 [facility] Blood Type 05/31/21 05/31/21 06/01/21 23:57 23:57 00:05 WBC RBC Hgb Hct MCV MCH MCHC RDW Plt Count MPV Immature Gran % (Auto) Neut % (Auto) Lymph % (Auto) Henry % (Auto) Eos % (Auto) Baso % (Auto) Lymph # (Auto) Henry # (Auto) Eos # (Auto) Baso # (Auto) Abs Immat Gran (auto) Absolute Neuts (auto) Absolute Nucleated RBC Nucleated RBC % (auto) PT 10.1 INR 0.9 Sodium Potassium Chloride Carbon Dioxide Anion Gap BUN Creatinine Estim Creat Clear Calc Estimated GFR Random Glucose Lactic Acid Calcium Total Bilirubin Direct Bilirubin AST ALT Alkaline Phosphatase Total Protein Albumin Beta HCG, Quant Urine Color YELLOW Urine Appearance CLEAR Urine pH 6.0 Ur Specific [place] 1.020 Urine Protein NEG Urine Glucose (UA) NEG Urine Ketones NEG Urine Blood NEG Urine Nitrite NEG Ur Leukocyte Esterase NEG Urine Test COVID-19 (DIA) COVID-19 [facility] Blood Type B Positive 06/01/21 06/01/21 06/01/21 00:05 03:23 03:35 WBC 11.7 H RBC 3.76 L Hgb 11.0 L Hct 32.7 L MCV 87.0 MCH 29.3 MCHC 33.6 RDW 12.4 Plt Count 256 MPV 10.5 Immature Gran % (Auto) 0.3 Neut % (Auto) 76.2 H Lymph % (Auto) 15.8 L Henry % (Auto) 5.4 Eos % (Auto) 2.0 Baso % (Auto) 0.3 Lymph # (Auto) 1.9 Henry # (Auto) 0.6 Eos # (Auto) 0.2 Baso # (Auto) 0.0 Abs Immat Gran (auto) 0.03 Absolute Neuts (auto) 8.9 H Absolute Nucleated RBC 0.000 Nucleated RBC % (auto) 0.0 PT INR Sodium Potassium Chloride Carbon Dioxide Anion Gap BUN Creatinine Estim Creat Clear Calc Estimated GFR Random Glucose Lactic Acid Calcium Total Bilirubin Direct Bilirubin AST ALT Alkaline Phosphatase Total Protein Albumin Beta HCG, Quant Urine Color Urine Appearance Urine pH Ur Specific [place] Urine Protein Urine Glucose (UA) Urine Ketones Urine Blood Urine Nitrite Ur Leukocyte Esterase Urine Test POSITIVE H COVID-19 (DIA) Negative COVID-19 Clin Com See Note Blood Type Airway Mallampati Class: III TM Dist: >3cm Neck ROM: Full Heart: RRR Lungs: CTA Assessment and Plan Final Anesthetic Review Family History of Problems with Anesthesia: No History of Problems with Anesthesia: No ASA Class: II and Emergency Final Preanesthetic Review: Meds/Allgs Chart Reviewed, Consent Obtained/Reviewed and Anes Risks/Benef Reviewed Patient Risk: Intermediate Procedure Risk: Low Anesthetic Plan Anesthetic Plan: GA Disposition: Standard PACU
--- NOTE | 2021-06-01 06:05 | PC.NURSE ---
I assumed care of Lorena on her arrival to bed 7 from the waiting room. She presented to the ED for evaluation of sudden onset of lower abdominal/pelvic/L sided abd. pain, nausea and vomiting. The pt stated she took a home test prior to coming and it was positive, much to her surprise since she has an IUD. She is alert, oriented x 3, makes eye contact with RN, is calm and cooperative. She speaks in full sentences, respirations non-labored, no cyanosis, room air sat's WNL. She appears pale, skin warm and dry. She is LOCKE x 4 and has ambulated to and from the bathroom in room 7 independently and with steady gait. There has been no vaginal bleeding. Iv access and labs were obtained on arrival. Since that time the pt has been given 1L NS and multiple doses of medicines to control the abdominal pain (see EMR for meds, doses, times). She obtained adequate pain relief after each administration of morphine and Dilaudid, but admitted that the medicine wore off after a short time and her pain returned to an 8/10. Lorena has met with surgeon and anesthesiology and is aware that she is to be transported to OR in order to have an exploratory laparoscopy. SHe verbalizes an understanding of this. Nursing report given to BIT GRINDER at this time and pt has been transported to OR by geotechnical laboratory technician.
--- NOTE | 2021-06-01 08:40 | P.BOP_ITS ---
Brief Operative Note Date of Service: 06/01/21 Pre-op diagnosis: Early with vaginal bleeding and hemoperitoneum possible ectopic , SAB, ruptured ovarian cyst Undesirable and future fertility Post-op diagnosis: same ( 200 cc of hemoperitoneum, distended left fallopian tube possible left tubal ectopic, no evidence of ruptured ovarian cyst) Procedure: Laparoscopic leftl salpingectomy IUD removal Suction D&C Surgeon: Jairo Jack MD Anesthesia: GETA Was an Programmable Logic Controller Assembler used for this Procedure?: No Estimated blood loss (mL): 0 Pathology: none sent (left fallopian tube with possible ectopic, endometrial scrapings) Condition: stable Disposition: PACU
--- NOTE | 2021-06-01 08:48 | W.PM.OPN ---
Operative Note Operative Note Date of Service: 06/01/21 Narrative: PREOPERATIVE DIAGNOSIS:? Early with vaginal bleeding and hemoperitoneum possible ectopic , SAB, ruptured ovarian cyst. ParaGard IUD in utero POSTOPERATIVE DIAGNOSIS:? 200 cc of hemoperitoneum, distended left fallopian tube with the appearance of ectopic , blood clots coming out of it ampulla, no evidence of ruptured ovarian cyst, IUD in utero Procedure: laparoscopic Right salpingectomy, removal, suction dilatation and curettage QBL: Minimal Anesthesia: GETA SURGEON:? Jairo Jack MD?? Environmental Field Professional:None Complications: None Pathology: Left Fallopian tubes, endometrial scripings? DESCRIPTION OF PROCEDURE:?The patient was taken to the OR where general anesthesia was easily obtained. The patient was then prepped and draped in a sterile fashion and placed in dorsal lithotomy position. A speculum was introduced into the patient?s vagina for cervical visualization.The IUD was removed by pulling out its string using a Priscilla clamp, then cervical dilatation was carried on, this was followed with introducing a number 7 Suction tip in the uterine cavity where suction curetting was carried on, in a 360 degrees fashion this was followed by sharp curetting till a gritty feeling was felt in the 4 quadrants of the uterus, then the suction curette was reintroduced inside the uterine cavity and suction Wascarried on. At the end, all instruments were taken out patient uterine cavity, the single tooth tenaculum was then removed and hemostasis was assured?using pressure. A Sheth catheter?was inserted and clear urine started draining. Gloves were changed to clean ones. Attention was then drawn to the abdomen where a 10 mm longitudinal incision was done intra umbilical and carried down all the way to the fascia, which was tented?up using 2 Heike clamps and was nicked in the midline and then extended on both end of the incision?, them using 2 pick?ups the peritoneum?was entered with Metzenbaum scissors and under direct visualization, a 10 mm Baires trocar was introduced into the patient?s abdomen. Once intraperitoneal placement was confirmed with direct visualization, pneumoperitoneum was started & was easily obtained.Then, two fingerbreadths above the pubic symphysis and towards the?right lower quadrant, under direct visualization, a 5 mm trocar was then introduced into the patient?s right lower quadrant and a 3rd 10 mm trocar on the left?lower quadrant was placed?in a similar manner. The patient was placed in Trendelenburg position, Inspection revealed 200 cc of hemoperitoneum, blood clots around the left ovary and the ampulla of the left fallopian tube,a distended left fallopian tube, giving it the appearance of a left ectopic filling up the left fallopian tube, inspection of the right adnexa revealed normal right ovarie and normal right fallopian tube. Attention was then drawn to the hemoperitoneum and suction irrigation was carried on to clean the pelvic cavity and the left adnexa area, then attention was turned to the left fallopian tube. Since the patient was counseled regarding this clinical scenario, specifically in the case where the appearance of the left fallopian tube seems uncertain with respect to diagnosing left ectopic , thepatient decided to proceed with a left salpingectomy instead of expectant management. Therefore, the decision was made to proceed with left salpingectomy instead of expectant management. The IP ligament was identified and fallopian tube was then grasped by the fimbria and incised from the mesosalpinx using ligasure device, using cautery for hemostasis and cutting afterwards a bite at a time all the way to the area medial to the edge of the ectopic of the Left fallopian tube. Good hemostasis was noted from the left fallopian tube sites and the operative site. Specimen were then removed from the patient?s abdomen from the 10 mm trocar through left lower quadrant port. Copious irrigation was done. Once good hemostasis was noted from the patient?s abdomen, pneumoperitoneum was deflated and all trocars were removed. Infraumbilical fascia was closed with 0 Vicryl and interrupted suture. The skin was closed with 4-0 Vicryl. during the skin in of the umbilical incision if for 0.0 Vicryl needle was broke, was not seen so x-ray was called stat identifying the skin in the subcuticular area using cautery dissection was carried on and the missing piece of the suture was found and taken out this was followed by closing the skin of the umbilicus using 4.0 Vicryl. The Right and left?lower quadrant ports were closed with 0 Vicryl. Bupivicaine 0.25 10 cc were injected subcuticularly in the 3 incisions. Then speculum was put back in the vagina inspection revealed?hemostasis at the site of the tenaculum, the?sponge stick was removed?from the patient's vagina and Sheth was draining clear urine was taken out too. Sponge, lap and needle counts were correct x2. The patient was taken to the recovery room in stable condition.
[2021-06-01] MEDS: fentaNYL citrate/PF 100 MCG/2 ML VIAL 25 MCG IVPUSH ×2 (08:59→09:09)
[2021-06-01] MEDS: Ketorolac Tromethamine 30 MG/ML VIAL 15 MG IVPUSH (09:17)
[2021-06-01 09:32] LABS: BV Int Neg Control Negative (Negative); BV Int Pos Control Positive (Positive)
--- NOTE | 2021-06-01 09:52 | PC.NURSE ---
PATIENT COMPLAINING OF NAUSEA DURING GETTING DRESSED. RETURNED TO BED IVF REINITIATED. MEDICATED WITH IV ZOFRAN ORDERED.
[2021-06-01 10:13] LABS: CT PCR NOT DETECTED (Not Detect.); NG PCR NOT DETECTED (Not Detect.)
[2021-06-01 10:49] LABS: HCG Quantitative 726 mIU/mL
== END 2021-06-01 10:42 | disposition home or self-care (01) ==
PROVIDERS: Nurse Practitioner Family; Obstetrics & Gynecology; Emergency Provider Student in an Organized Health Care Education/Training Program
PROC: (CPT 59151; principal; 2021-06-01 05:30)
PROC: (CPT 59151; 2021-06-01 05:30)
DX: O00.102 Left tubal pregnancy without intrauterine pregnancy (principal); O08.1 Delayed or excessive hemorrhage following ectopic and molar pregnancy; Z3A.01 Less than 8 weeks gestation of pregnancy; Z97.5 Presence of (intrauterine) contraceptive device; Z20.822 Contact with and (suspected) exposure to COVID-19
CPT/HCPCS: 59151; 58120; 58301; 36415; 74018; 76801; 76817; 80048; 80076; 81003; 81025; 83605; 84702; 85025; 85610; 86900; 86901; 87480; 87491; 87510; 87591; 87635; 87660; 88305; 96361; 96374; 96375; 96376; 99285; J0131; J1100; J1170; J1885; J2250; J2270; J2405; J2550; J3010

== ENCOUNTER 2021-06-02 13:58 | Outpatient (REF) | payer OTHER, SELFPAY ==
[2021-06-02 14:54] LABS: HCG Quantitative 252 mIU/mL
--- NOTE | 2021-06-02 16:14 | HO.POSTANES ---
Post Anesthesia Evaluation Post Anesthesia Evaluation Anesthesia: General Endotracheal-GETA Mental Status: Awake Pain Control: Satisfactory Nausea/Vomiting: None Hydration: Adequate Anesthesia-Related Issues: No Anes. Related Issues
== END 2021-06-02 13:59 | disposition home or self-care (01) ==
LOC: HO.LAB 13:58
PROVIDERS: Obstetrics & Gynecology; Visit Provider Physician Assistant
DX: Z34.90 Encounter for supervision of normal pregnancy, unspecified, unspecified trimester (principal)
CPT/HCPCS: 36415; 84702

== ENCOUNTER 2021-06-18 13:18 | Outpatient (REF) | payer OTHER, SELFPAY ==
[2021-06-18 15:26] LABS: HCG Quantitative < 2 mIU/mL
== END 2021-06-18 13:19 | disposition home or self-care (01) ==
LOC: HO.LAB 13:18
PROVIDERS: Visit Provider Obstetrics & Gynecology
DX: O00.90 Unspecified ectopic pregnancy without intrauterine pregnancy (principal)
CPT/HCPCS: 36415; 84702; 99212

== ENCOUNTER → 2021-07-02 15:41 | Outpatient (BNVA) | payer OTHER, SELFPAY | PROVIDERS: Visit Provider Obstetrics & Gynecology | DX: O00.90 Unspecified ectopic pregnancy without intrauterine pregnancy (principal); N93.9 Abnormal uterine and vaginal bleeding, unspecified | CPT/HCPCS: Q3014 ==

== ENCOUNTER 2021-07-02 16:22 | Emergency (ER) | payer OTHER, SELFPAY ==
--- NOTE | ~2021-07-02 | CT_ITS ---
EXAMINATION: CT ANGIOGRAM CHEST WITH AND WITHOUT CONTRAST (CT PULMONARY ANGIOGRAM FOR PE) CLINICAL INFORMATION: Chest tightness, elevated D-dimer, status post surgery. COMPARISON: Chest radiograph done earlier today at 7:19 PM. TECHNIQUE: Prior to contrast administration, noncontrast localization images were obtained. Subsequently, multidetector volumetric imaging was performed from the thoracic inlet to below the diaphragms following the administration of 68 mL Omnipaque 350 intravenous contrast. No contrast reaction reported. Sagittal, coronal, and MIP oblique sagittal reformatted images were obtained on the CT workstation, uploaded to PACS, and reviewed. This CT examination was performed using dose optimization techniques as appropriate, variously including the following: *Automated exposure control. *Adjustment of mA and/or kV according to patient size (this includes techniques or standardized protocols for targeted exams where dose is matched to indication/reason for exam; i.e. extremities or head). *Use of iterative reconstruction technique. Total exam dose-length product 331 mGy-cm. FINDINGS: QUALITY OF STUDY/CONTRAST BOLUS: Satisfactory. PULMONARY ARTERIES: Examination is limited due to respiratory motion. However, accounting for these limitations, no definite central or segmental pulmonary emboli are identified. THORACIC AORTA: No aneurysm or dissection. LUNG: No focal consolidation, nodules or masses. PLEURA: No pleural effusion or pneumothorax. MEDIASTINUM: Normal heart size. No pericardial effusion. No hilar or mediastinal lymphadenopathy. No evidence of septal bowing or right heart strain. CHEST WALL/AXILLA: No axillary or internal mammary lymphadenopathy. OSSEOUS STRUCTURES: No acute or suspicious osseous abnormality. UPPER ABDOMEN: Unremarkable. No reflux of contrast into the hepatic veins to suggest elevated right heart pressures. CT/CT angio chest PE protocol IMPRESSION: No evidence of pulmonary emboli. No acute cardiothoracic findings. VTE: Negative.
--- NOTE | ~2021-07-02 | XR_ITS ---
EXAMINATION: XR CHEST CLINICAL INFORMATION: Evaluate for pneumonia. COMPARISON: No similar priors. TECHNIQUE: Frontal view of the chest was obtained. FINDINGS: Normal appearance of the cardiomediastinal silhouette. Mild interstitial thickening without discrete focal airspace opacities, pleural effusions or pneumothorax. No acute osseous abnormalities. The visualized upper abdomen is within normal limits. XR/XR chest 1V IMPRESSION: Mild interstitial thickening which is nonspecific and could be associated with asthma, bronchitis, reactive airways disease or atypical infections.
--- NOTE | ~2021-07-02 | US_ITS ---
EXAMINATION: US PELVIS CLINICAL INFORMATION: Pain and heavy bleeding for 2 days. History of ectopic with left tubal ectopic. Evaluate for retained products of conception. COMPARISON: None TECHNIQUE: Ultrasound of the pelvis is performed using both transabdominal and transvaginal transducers along with Doppler. Transvaginal imaging is performed due to inadequate visualization transabdominally. FINDINGS: Uterus: The uterus is anteverted and measures 10 x 4 x 5.3 cm. No fluid or debris within the endometrial cavity. The double wall endometrial thickness is 0.6 mm. The uterus is smooth in contour and has normal myometrial echogenicity. No visible fibroid. ADNEXA: Ovarian vascularity:Doppler demonstrates both arterial and venous vascular flow in the right and left ovary. No evidence of ovarian torsion. Right Ovary: 3.4 x 1.4 x 2.5 cm. Volume 6.2 mL Left Ovary: 4.2 x 3 x 3.1 cm. Volume 20.5 mL. Complex cyst in the left adnexa. There are cystic septations along the wall. No solid component. No vascular component on color Doppler. This measures 2.7 x 2.9 x 2.8 cm. (On the prior ultrasound of 06/01/2021 2 cm follicle is seen within the left ovary.) Cul-de-sac: No Fluid US/US pelvic and transvaginal IMPRESSION: There is a complex cystic structure in the left adnexa. Consider short-term follow-up.
[2021-07-02 17:09] VITALS: BP 138/90; PULSE 92; RESP 20; TEMP 37; O2SAT 99; BMI 29.8
--- NOTE | 2021-07-02 17:14 | ECG_ITS ---
Test Reason : SOB/chest tightness Blood Pressure : / mmHG Vent. Rate : 093 BPM Atrial Rate : 093 BPM P-R Int : 136 ms QRS Dur : 080 ms QT Int : 360 ms P-R-T Axes : 035 022 046 degrees QTc Int : 447 ms Normal sinus rhythm Normal ECG No previous ECGs available Referred By: Generic ED Physician Electronically Signed By:Arturo Villagomez
[2021-07-02 17:32] LABS: MANUAL DIFF FLAG NO
[2021-07-02 17:48] LABS: Anion Gap 13 (12-20); Blood Urea Nitrogen 12 mg/dL (9-16); COVID-19 Test Negative (Negative); Calcium 9.4 mg/dL (8.4-10.2); Carbon Dioxide 22 mmol/L (22-29); Chloride 109 mmol/L (96-108); Creatinine Clr Calc Pharmacy 113.5; Estimated Glomerular Filt Rate > 60; Glucose Random 71 mg/dL (60-115); IDNOW Serial# 16C4AD1C; Potassium 4.1 mmol/L (3.3-5.1); Sodium 140 mmol/L (135-145)
[2021-07-02 17:49] LABS: Basophils Absolute Auto 0.1 X10*3/uL (0.0-0.2); Basophils Percent Auto 0.5 % (0-2); Eosinophils Absolute Auto 0.6 X10*3/uL (0.0-0.4); Eosinophils Percent Auto 6.5 % (0-4); Hematocrit 38.4 % (37.0-47.0); Imm Gran Abs Auto 0.02 X10*3/uL (0.00-0.03); Imm Gran Pct Auto 0.2 % (0.0-0.4); Lymphocytes Percent Auto 30.7 % (20-40); Mean Corpuscular HGB Conc 33.9 g/dl (31.0-35.0); Mean Corpuscular Hemoglobin 29.5 pg (27.0-33.0); Mean Corpuscular Volume 87.3 fL (80.0-98.0); Mean Platelet Volume 10.5 fL (9.4-12.3); Monocytes Absolute Auto 0.8 X10*3/uL (0.1-1.2); Neutrophils Absolute Auto 5.2 x10*3/uL (2.0-8.3); Neutrophils Percent Auto 54.1 % (45-73); Platelet Count 300 X10*3/uL (160-400); White Blood Count 9.7 X10*3/uL (4.8-10.8)
[2021-07-02 18:09] VITALS: BP 133/90; PULSE 78; RESP 18; TEMP 37; O2SAT 99
--- NOTE | 2021-07-02 18:18 | ED_ITS ---
HPI - General Adult General Chief complaint: Vaginal Bleeding Stated complaint: vaginal bleeding, dizziness, had surgery 1 mon ago Time Seen by Provider: 07/02/21 17:54 Source: patient Mode of arrival: ambulatory Limitations: no limitations History of Present Illness HPI narrative: 25-year-old female status post ectopic a month ago presents to ED for 2 days of vaginal bleeding with heavy blood clots and also having chest tightness, left sided neck pain, and shortness of breath. Patient states having dizziness described lightheadedness. Patient states using 1 pad every hour due to heavy vaginal bleeding. Patient presently not on any control pills. Patient was sent to the ED by OBGYN for evaluation. Patient denies any slurred speech, facial droop, headache, paralysis of extremities, loss of vision, or sensation of room spinning. Related Data Previous Rx's Medication Instructions Recorded oxycodone 5 mg capsule 5 mg PO Q4H PRN #20 cap 06/01/21 Allergies Allergy/AdvReac Type Severity Reaction Status Date / Time No Known Allergies Allergy Verified 07/02/21 17:13 Review of Systems Review of Systems: Heavy vaginal bleeding, chest tightness, shortness of breath, dizziness described as lightheadedness. Patient having symptoms for 2 days. Yes all other systems are reviewed and are negative [facility] Social History Social History Alcohol intake: never Patient Tobacco Use Status: Never used Tobacco Use of substances other than those prescribed or required for medical reasons: No Advance Directives: No Advance Directives Information Provided: No Patient : No Physical Exam ED Vital Signs: Vital Signs - 24 hr 07/02/21 17:09 07/02/21 18:09 07/02/21 20:37 Temperature 98.6 F 98.6 F 98.4 F Pulse Rate 92 78 72 Respiratory Rate 20 18 16 Blood Pressure 138/90 H 133/90 H 123/73 Pulse Oximetry 99 99 98 07/02/21 21:27 07/02/21 23:13 Temperature 98.1 F 98.6 F Pulse Rate 65 76 Respiratory Rate 16 16 Blood Pressure 119/72 125/83 Pulse Oximetry 97 100 BMI result Body Mass Index 29.8 Const General: cooperative, healthy appearing, comfortable, no acute distress, well developed, alert, awake and Physically active Orientation/consciousness: patient oriented x3 HENMT Head: Yes normal to inspection, Yes No palpable skull fracture present, Yes normocephalic, Yes atraumatic and No abrasion Eyes General: appearance normal, both eyes and all related structures Neck Neck: Yes normal visual inspection, Yes full ROM, Yes no lymphadenopathy, Yes no meningeal signs, Yes trachea midline, Yes supple, No anterior neck swelling and No tender Chest Chest palpation & inspection: normal inspection of the chest and normal palpation of entire chest wall Resp Effort & Inspection: normal respiratory effort and able to speak in complete sentences Auscultation: clear to auscultation bilaterally Cardio Jugular venous distension: no JVD Heart sounds: S1 normal heart sound present and S2 normal heart sound present GI Other: ectopic scars are healing and negative for signs of erythema, pus discharge, or foul odor. Inspection: Yes normal to inspection and No abdominal wall ecchymosis Palpation (GI): Soft to palpation, not firm, nontender, no guarding and not rigid General: No CVA tenderness and Yes no CVA tenderness Back/Spine/Pelvis Back: no CVA tenderness, No CVA tenderness and No back tenderness Skin General skin exam: no rashes or lesions noted and elasticity normal Neuro Other: Negative slurred speech. Negative facial droop. All extremities equal strength 5+. [id number] and rapid hand movement intact. Negative Romberg. Negative pronator drift. NIH score 0. General: patient oriented x3, gait normal, no meningeal signs and CN's II-XI intact bilaterally Cranial nerves: Yes CN's II-XII intact bilaterally Extrem Other: Lower extremities negative for swelling, pitting edema, or calf tenderness General: Yes normal to inspection and Yes full ROM Psych Appearance: grossly normal, well kempt and not disheveled Course Course Course Narrative: Patient vital signs are stable and appears comfortable. Most likely patient will get ultrasound if negative Mr. Does no retained product. Patient presently has normal O2 saturation but due to recent surgery within a month and chest tightness will add D-dimer to see patient at risk of PE. For fluids ordered. Chest x-ray ordered. Reevaluation(s) Reevaluation #1: Ultrasound came back negative for products of conception or large amount of blood. Only shows left complex cyst. Patient's CBC stable. D-dimer came back slightly elevated sent for chest CT to rule out PE due to recent surgery within a month. EKG troponin negative. Will do pelvic exam with female account strategist Time: 20:48 Reevaluation #2: Pelvic exam shows bleeding from cervical os and blood in vaginal vault. Ne gative for hemorrhagic bleeding. cervical Os is closed. negative for vaginal lacerations/lesions. Patient states she only use 1 pad throughout the whole ED visit. Patient vital signs are stable. Patient had 2 troponins negative. No need for imaging of the head. Patient neuro exam intact. Patient did not have any injury to neck or any chiropractor work to indicate carotid artery dissection. Patient's chest CTA negative for PE. Patient informed to follow-up with OBGYN and primary care provider. Time: 22:48 Medical Decision Making MDM Narrative Medical decision making narrative: Dysfunctional uterine bleeding. Atypical chest pain Lab Data Result diagrams: 07/02/21 17:26 07/02/21 17:26 Labs: Lab Results 07/02/21 07/02/21 07/02/21 Range/Units 17:26 17:26 17:26 WBC 9.7 (4.8-10.8) X10*3/uL RBC 4.40 (4.20-5.50) X10*6/uL Hgb 13.0 (12.0-16.0) g/dl Hct 38.4 (37.0-47.0) % MCV 87.3 (80.0-98.0) fL MCH 29.5 (27.0-33.0) pg MCHC 33.9 (31.0-35.0) g/dl RDW 13.0 (11.0-16.0) % Plt Count 300 (160-400) X10*3/uL MPV 10.5 (9.4-12.3) fL Immature Gran % (Auto) 0.2 (0.0-0.4) % Neut % (Auto) 54.1 (45-73) % Lymph % (Auto) 30.7 (20-40) % Fulton % (Auto) 8.0 (2-11) % Eos % (Auto) 6.5 H (0-4) % Baso % (Auto) 0.5 (0-2) % Lymph # (Auto) 3.0 (1.2-4.9) X10*3/uL Fulton # (Auto) 0.8 (0.1-1.2) X10*3/uL Eos # (Auto) 0.6 H (0.0-0.4) X10*3/uL Baso # (Auto) 0.1 (0.0-0.2) X10*3/uL Abs Immat Gran (auto) 0.02 (0.00-0.03) X10*3/uL Absolute Neuts (auto) 5.2 (2.0-8.3) x10*3/uL Absolute Nucleated RBC 0.000 (0.0-0.012) X10*3/uL Nucleated RBC % (auto) 0.0 (0.0-0.2) /100WBC PT (9.9-13.0) SEC INR (0.9-1.1) APTT (24.1-38.0) SEC D-Dimer High Sensitivty NG/ML Sodium 140 (135-145) mmol/L Potassium 4.1 (3.3-5.1) mmol/L Chloride 109 H (96-108) mmol/L Carbon Dioxide 22 (22-29) mmol/L Anion Gap 13 (12-20) BUN 12 (9-16) mg/dL Creatinine 0.82 (0.5-1.4) mg/dL Estim Creat Clear Calc 113.5 Estimated GFR > 60 Random Glucose 71 (60-115) mg/dL Calcium 9.4 (8.4-10.2) mg/dL Troponin I High Sens (<3.5-17.0) ng/L B-Natriuretic Peptide (<100) pg/mL Beta HCG, Quant < 2 mIU/mL Urine Color Urine Appearance Urine pH (5.0-8.0) Ur Specific Aubrey (1.005-1.025) Urine Protein (NEG-TRACE) MG/DL Urine Glucose (UA) (NEG) MG/DL Urine Ketones (NEG) MG/DL Urine Blood (NEG) Urine Nitrite (NEG) Ur Leukocyte Esterase (NEG) Urine RBC (0) /HPF Urine WBC (0-4) /HPF Ur Squamous Epith Cells /LPF Urine Bacteria /LPF Urine Test (NEGATIVE) COVID-19 (DIA) Negative (Negative) COVID-19 Clin Com See Note 03/22/22 03/22/22 03/22/22 Range/Units 18:32 18:32 18:32 WBC (4.8-10.8) X10*3/uL RBC (4.20-5.50) X10*6/uL Hgb (12.0-16.0) g/dl Hct (37.0-47.0) % MCV (80.0-98.0) fL MCH (27.0-33.0) pg MCHC (31.0-35.0) g/dl RDW (11.0-16.0) % Plt Count (160-400) X10*3/uL MPV (9.4-12.3) fL Immature Gran % (Auto) (0.0-0.4) % Neut % (Auto) (45-73) % Lymph % (Auto) (20-40) % Fulton % (Auto) (2-11) % Eos % (Auto) (0-4) % Baso % (Auto) (0-2) % Lymph # (Auto) (1.2-4.9) X10*3/uL Fulton # (Auto) (0.1-1.2) X10*3/uL Eos # (Auto) (0.0-0.4) X10*3/uL Baso # (Auto) (0.0-0.2) X10*3/uL Abs Immat Gran (auto) (0.00-0.03) X10*3/uL Absolute Neuts (auto) (2.0-8.3) x10*3/uL Absolute Nucleated RBC (0.0-0.012) X10*3/uL Nucleated RBC % (auto) (0.0-0.2) /100WBC PT 9.4 L (9.9-13.0) SEC INR 0.8 L (0.9-1.1) APTT 32.6 (24.1-38.0) SEC D-Dimer High Sensitivty 280 NG/ML Sodium (135-145) mmol/L Potassium (3.3-5.1) mmol/L Chloride (96-108) mmol/L Carbon Dioxide (22-29) mmol/L Anion Gap (12-20) BUN (9-16) mg/dL Creatinine (0.5-1.4) mg/dL Estim Creat Clear Calc Estimated GFR Random Glucose (60-115) mg/dL Calcium (8.4-10.2) mg/dL Troponin I High Sens < 3.5 (<3.5-17.0) ng/L B-Natriuretic Peptide < 10 (<100) pg/mL Beta HCG, Quant mIU/mL Urine Color Urine Appearance Urine pH (5.0-8.0) Ur Specific Aubrey (1.005-1.025) Urine Protein (NEG-TRACE) MG/DL Urine Glucose (UA) (NEG) MG/DL Urine Ketones (NEG) MG/DL Urine Blood (NEG) Urine Nitrite (NEG) Ur Leukocyte Esterase (NEG) Urine RBC (0) /HPF Urine WBC (0-4) /HPF Ur Squamous Epith Cells /LPF Urine Bacteria /LPF Urine Test (NEGATIVE) COVID-19 (DIA) (Negative) COVID-19 Clin Com 07/02/21 07/02/21 07/02/21 Range/Units 21:26 21:29 21:29 WBC (4.8-10.8) X10*3/uL RBC (4.20-5.50) X10*6/uL Hgb (12.0-16.0) g/dl Hct (37.0-47.0) % MCV (80.0-98.0) fL MCH (27.0-33.0) pg MCHC (31.0-35.0) g/dl RDW (11.0-16.0) % Plt Count (160-400) X10*3/uL MPV (9.4-12.3) fL Immature Gran % (Auto) (0.0-0.4) % Neut % (Auto) (45-73) % Lymph % (Auto) (20-40) % Fulton % (Auto) (2-11) % Eos % (Auto) (0-4) % Baso % (Auto) (0-2) % Lymph # (Auto) (1.2-4.9) X10*3/uL Fulton # (Auto) (0.1-1.2) X10*3/uL Eos # (Auto) (0.0-0.4) X10*3/uL Baso # (Auto) (0.0-0.2) X10*3/uL Abs Immat Gran (auto) (0.00-0.03) X10*3/uL Absolute Neuts (auto) (2.0-8.3) x10*3/uL Absolute Nucleated RBC (0.0-0.012) X10*3/uL Nucleated RBC % (auto) (0.0-0.2) /100WBC PT (9.9-13.0) SEC INR (0.9-1.1) APTT (24.1-38.0) SEC D-Dimer High Sensitivty NG/ML Sodium (135-145) mmol/L Potassium (3.3-5.1) mmol/L Chloride (96-108) mmol/L Carbon Dioxide (22-29) mmol/L Anion Gap (12-20) BUN (9-16) mg/dL Creatinine (0.5-1.4) mg/dL Estim Creat Clear Calc Estimated GFR Random Glucose (60-115) mg/dL Calcium (8.4-10.2) mg/dL Troponin I High Sens < 3.5 (<3.5-17.0) ng/L B-Natriuretic Peptide (<100) pg/mL Beta HCG, Quant mIU/mL Urine Color RED A Urine Appearance HAZY Urine pH 6.5 (5.0-8.0) Ur Specific Aubrey 1.010 (1.005-1.025) Urine Protein 1+ H (NEG-TRACE) MG/DL Urine Glucose (UA) NEG (NEG) MG/DL Urine Ketones 15 (NEG) MG/DL Urine Blood 3+ H (NEG) Urine Nitrite NEG (NEG) Ur Leukocyte Esterase NEG (NEG) Urine RBC 76-150 H (0) /HPF Urine WBC 1-4 (0-4) /HPF Ur Squamous Epith Cells 1+ /LPF Urine Bacteria 1+ /LPF Urine Test NEGATIVE (NEGATIVE) COVID-19 (DIA) (Negative) COVID-19 Clin Com ECG Data Interpretation: Normal sinus rhythm. Ventricular rate 93. Pr interval 136. QRS 80. QTC 447. Negative STEMI Discharge Plan Discharge Clinical Impression: Vaginal bleeding, Abnormal uterine bleeding, Chest pain, atypical Patient Disposition: Home, Self-Care Instructions: Chest Pain (DC), Dysfunctional Uterine Bleeding (ED) Additional Instructions: EKG and blood work came back negative for heart attack. CT scan of the chest came back negative for pulmonary embolus or pneumonia. Pelvic ultrasound came back negative for product of conception or bleeding. You are not . You're vital signs were stable. Please follow-up with primary care provider and OBGYN. Return to the ED for any chest pain, shortness of breath, leg swelling, calf pain, coughing up blood, fever, chills, worsening vaginal bleeding, increased use of pads, headache, slurred speech, facial droop, or any other concerning symptoms. Prescriptions: No Action oxycodone 5 mg capsule 5 mg PO Q4H PRN (Reason: pain (scale score 4-6)) Qty: 20 0RF Referrals: Jairo Jack MD [Physician] - 2 days (Dysfunctional uterine bleeding) Stand Alone Forms: Work/School Release Interventions: ED Discharge Assessment Last Done: 07/02/21 23:17 Discharge Date/Time: 07/02/21 23:18 Print Language: Malagasy
[2021-07-02 18:32] LABS: HCG Quantitative < 2 mIU/mL
[2021-07-02] MEDS: 0.9 % Sodium Chloride 1,000 ML 999 ML IV (18:39)
[2021-07-02 19:02] LABS: INTERNATIONAL NORM RATIO 0.8 (0.9-1.1); Prothrombin Time 9.4 SEC (9.9-13.0)
[2021-07-02 19:04] LABS: D Dimer High Sensitivity 280 NG/ML; Partial Thromboplastin Time 32.6 SEC (24.1-38.0)
[2021-07-02 19:06] LABS: Troponin-I High Sensitivity < 3.5 ng/L (<3.5-17.0)
[2021-07-02] MEDS: iohexoL 350 MG/ML 100 ML INFUS..BTL IV (20:17)
[2021-07-02 20:37] VITALS: BP 123/73; PULSE 72; RESP 16; TEMP 36.9; O2SAT 98
[2021-07-02 21:27] VITALS: BP 119/72; PULSE 65; RESP 16; TEMP 36.7; O2SAT 97
[2021-07-02 21:36] LABS: B Type Natriuretic Peptide < 10 pg/mL (<100)
[2021-07-02 21:46] LABS: Appearance Urine HAZY; Glucose Urine UA NEG (NEG); Leukocyte Esterase Urine NEG (NEG); Nitrite Urine NEG (NEG); PH 6.5 (5.0-8.0); UACC Culture Trigger NO; Urine Blood 3+ (NEG); Urine Ketones 15 MG/DL (NEG); Urine Protein 1+ MG/DL (NEG-TRACE)
[2021-07-02 21:48] LABS: Bacteria Urine 1+ /LPF; Color Urine RED; Squamous Epithelial Cell Urine 1+ /LPF
[2021-07-02 21:49] LABS: UPreg QC Valid YES; Urine Pregnancy NEGATIVE (NEGATIVE)
[2021-07-02 21:56] LABS: Troponin-I High Sensitivity < 3.5 ng/L (<3.5-17.0)
[2021-07-02 23:13] VITALS: BP 125/83; PULSE 76; RESP 16; TEMP 37; O2SAT 100
== END 2021-07-02 23:18 | disposition home or self-care (01) ==
PROVIDERS: Physician Assistant; Emergency Provider Internal Medicine
DX: N93.9 Abnormal uterine and vaginal bleeding, unspecified (principal); R07.89 Other chest pain; Z20.822 Contact with and (suspected) exposure to COVID-19; R06.02 Shortness of breath
CPT/HCPCS: 36415; 71045; 71275; 76830; 76856; 80048; 81001; 81025; 83880; 84484; 84702; 85025; 85379; 85610; 85730; 87635; 93005; 96360; 99284; 99285; Q9967

== ENCOUNTER 2021-09-28 20:26 | Emergency (ER) | payer OTHER, SELFPAY ==
--- NOTE | ~2021-09-28 | XR_ITS ---
EXAMINATION: XR KNEE, LEFT CLINICAL INFORMATION: Injury. COMPARISON: None TECHNIQUE: Four views of the left knee. FINDINGS: Bones and soft tissues are normal. No fracture or joint effusion. Alignment is anatomic. Joint spaces are well maintained. No abnormal soft tissue calcification. XR/XR knee LT 4V IMPRESSION: Normal left knee.
[2021-09-28 20:35] VITALS: BP 139/93; PULSE 83; RESP 16; TEMP 36.3; O2SAT 98; BMI 29.8
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
[2021-09-28] MEDS: Ibuprofen 800 MG TABLET PO (23:43)
== END 2021-09-28 23:51 | disposition home or self-care (01) ==
PROVIDERS: Emergency Provider Emergency Medicine
DX: S83.92XA Sprain of unspecified site of left knee, initial encounter (principal); W01.0XXA Fall on same level from slipping, tripping and stumbling without subsequent striking against object, initial encounter; Y93.9 Activity, unspecified; Y92.9 Unspecified place or not applicable; Y99.9 Unspecified external cause status; Z79.899 Other long term (current) drug therapy
CPT/HCPCS: 73564; 99283

== ENCOUNTER → 2021-10-09 12:43 | Outpatient (BNVA) | payer OTHER, SELFPAY | PROVIDERS: Visit Provider Physician Assistant | DX: M23.92 Unspecified internal derangement of left knee (principal) | CPT/HCPCS: 99202 ==

== ENCOUNTER 2021-10-18 17:57 | Outpatient (REF) | payer OTHER, SELFPAY ==
--- NOTE | ~2021-10-18 | MR_ITS ---
EXAMINATION: MR KNEE WITHOUT CONTRAST, LEFT CLINICAL INFORMATION: Internal derangement. COMPARISON: Radiographs 09/28/2021. TECHNIQUE: MRI of the knee without contrast was performed using routine sequences on a high-field scanner. FINDINGS: MENISCI: Medial Meniscus: Intact. Lateral Meniscus: Intact. LIGAMENTS: Cruciate: The anterior cruciate ligament is completely torn. The posterior cruciate ligament is intact. Collateral: Prominent edema extends along the fibular collateral ligament compatible with a grade 1 sprain. Mild strain of the popliteus muscle with ill-defined edema in the region of the posterolateral corner with no tear identified. EXTENSOR MECHANISM: Intact. ARTICULAR CARTILAGE/BONE: Patellofemoral Compartment: Normal. Medial Compartment: Impaction fracture at the posterior aspect of the tibia with prominent marrow edema. No displaced chondral defect. Lateral Compartment: Impaction fractures of the tibia posteriorly with surface depression, as well as the anterior weightbearing aspect of the femoral condyle peripherally in keeping with a pivot shift injury mechanism. No displaced chondral fragments. JOINT FLUID AND BURSAE: Small joint effusion. MR/MR knee LT wo con IMPRESSION: Complete ACL tear with impaction fractures of the posterior medial/lateral tibia and anterior lateral femoral condyle. Small joint effusion. Grade 1 fibular collateral ligament sprain. Mild popliteus muscle strain. No meniscal tear.
== END 2021-10-18 17:58 | disposition home or self-care (01) ==
LOC: HO.MRI 17:57
PROVIDERS: Visit Provider Physician Assistant
DX: M23.92 Unspecified internal derangement of left knee (principal)
CPT/HCPCS: 73721

== ENCOUNTER → 2021-11-06 09:49 | Outpatient (BNVA) | payer OTHER, SELFPAY | PROVIDERS: Visit Provider Physician Assistant | DX: S83.512A Sprain of anterior cruciate ligament of left knee, initial encounter (principal) | CPT/HCPCS: 99212 ==

== ENCOUNTER 2022-06-14 20:10 | Emergency (ER) | payer OTHER, SELFPAY ==
--- NOTE | ~2022-06-14 | XR_ITS ---
EXAMINATION: XR RIBS, RIGHT CLINICAL INFORMATION: Fall. COMPARISON: CTA chest 07/02/2021. TECHNIQUE: 3 views of the right ribs were obtained. FINDINGS: Lungs are clear. No consolidation, pneumothorax, or pleural effusion. The cardiomediastinal silhouette and pulmonary vasculature are normal. Osseous structures are unremarkable. Ribs are intact. No fractures are identified. XR/XR ribs RT min 3V w CXR1V IMPRESSION: Unremarkable examination.
--- NOTE | ~2022-06-14 | CT_ITS ---
EXAMINATION: CT CHEST WITHOUT CONTRAST CLINICAL INFORMATION: Dyspnea COMPARISON: 07/02/2021 TECHNIQUE: Multidetector volumetric CT imaging of the chest was done. Axial MIP volume rendering provided. Sagittal and coronal reformatted images were obtained. This CT examination was performed using dose optimization techniques as appropriate, variously including the following: *Automated exposure control *Adjustment of mA and/or kV according to patient size (this includes techniques or standardized protocols for targeted exams where dose is matched to indication/reason for exam; i.e. extremities or head) *Use of iterative reconstruction technique DLP: 285 mGy-cm FINDINGS: LUNGS: No regions of consolidation bilaterally. No appreciable interstitial abnormalities. MEDIASTINUM: The visualized thyroid gland is unremarkable. There are subcentimeter mediastinal lymph nodes within the range of normal variation. Cardiac size is within normal limits; no pericardial effusion. CORONARY ARTERY CALCIFICATION: None visualized on this study. PLEURA: There is no pleural effusion or pneumothorax. No pleural mass or thickening. AXILLA: No lymphadenopathy. UPPER ABDOMEN: Unremarkable. OSSEOUS STRUCTURES: Unremarkable. CT/CT chest wo IV con IMPRESSION: No acute findings identified in the chest.
[2022-06-14 20:33] VITALS: BP 143/70; PULSE 97; RESP 16; TEMP 37.6; O2SAT 97; BMI 29.0
--- NOTE | 2022-06-14 21:43 | ED_ITS ---
[facility] - Fall General Chief Complaint: Fall Stated Complaint: fell on right side rib pain Time Seen by Provider: 06/14/22 21:12 Source: patient Mode of arrival: ambulatory History of Present Illness HPI Narrative: 26-year-old female without significant past medical history presents with right- sided rib pain after she fell at approximately 1-2 p.m. this afternoon and struck her right side on a concrete step. She denies any head strike or loss of consciousness. Related Data Previous Rx's Medication Instructions Recorded oxycodone 5 mg capsule 5 mg PO Q4H PRN pain (scale score 06/01/21 4-6) #20 caps ketorolac 10 mg tablet 10 mg PO Q6H PRN pain 5 days #20 06/14/22 tabs Allergies Allergy/AdvReac Type Severity Reaction Status Date / Time No Known Allergies Allergy Verified 06/14/22 20:33 Review of Systems Review of Systems: Pertinent positives and negatives as stated in [facility] Past Medical History Source: nursing notes reviewed Surgical History H/O section Social History Social History Alcohol intake: never Patient Tobacco Use Status: Never used Tobacco Advance Directives: No Advance Directives Information Provided: Yes Current occupational status: 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 GENERAL: Well developed, well nourished, in no acute distress. HEAD: Normocephalic/atraumatic EYES: PERRLA, EOMI OROPHARYNX: no oral lesions noted, posterior pharynx clear NECK: Supple, no adenopathy LUNGS: Normal breath sounds. No adventitious sounds or accessory muscle use. SpO2<97> CARDIOVASCULAR: Regular rate and rhythm without noted murmurs ABDOMEN: Soft, non-tender, non-distended with bowel sounds. MUSCULOSKELETAL: No tenderness, deformities, or effusions noted on gross inspection. EXTREMITIES: No cyanosis, clubbing or edema. SKIN: Inspection of the skin reveals no rashes NEUROLOGIC: Alert and oriented x 4. Strength and sensation to light touch were grossly intact x 4. Medications Administered Discontinued Medications Generic Name Dose Route Start Last Admin Trade Name Dean PRN Reason Stop Dose Admin Acetaminophen 975 mg 06/14/22 21:44 06/14/22 22:39 Acetaminophen 325 Mg Tablet PO 06/14/22 21:45 975 mg ONCE ONE Administration Ketorolac Tromethamine 15 mg 06/14/22 21:44 06/14/22 22:40 Ketorolac Tromethamine 15 Mg/Ml Vial IM 06/14/22 21:45 15 mg ONCE ONE Administration Lidocaine 1 patch 06/14/22 21:44 06/14/22 22:39 Lidocaine 4 % Patch Adh..Patch TRANSDERMA 06/14/22 21:45 1 patch ONCE ONE Administration Protocol Medical Decision Making Medical Decision Making MDM Narrative: This is a 26-year-old female who fell onto a concrete step due to a slip and fall, no head strike or LOC. patient received combination analgesics as well as a lidocaine patch for pain control. I did review the rib series x-ray and agree with radiology's impression of the imaging studies, however fractures are routinely missed by this imaging modality, patient is U preg negative been will go through with CT chest without contrast. Although I do suspect likely chest wall contusion. My interpretation is in agreement with radiology's impression of imaging studies, there are no acute fractures and patient has suffered rib contusions. Differential Diagnosis Please see the discussion above Lab Data Please see the discussion above Labs: Lab Results 06/14/22 06/14/22 Range/Units 21:47 21:47 Urine Color Yellow Urine Appearance Clear Urine pH 7.0 (5.0-9.0) Ur Specific [place] 1.020 (1.005-1.025) Urine Protein Negative (Neg-Trace) mg/dL Urine Glucose (UA) Negative (Negative) mg/dL Urine Ketones Negative (Negative) mg/dL Urine Blood Negative (Negative) Urine Nitrite Negative (Negative) Ur Leukocyte Esterase Negative (Negative) Urine Test NEGATIVE (NEGATIVE) Radiology Impression Radiologist Impression: My interpretation is in agreement with radiology's impression of the imaging study. Discharge Plan Discharge Clinical Impression: Fall, Chest wall contusion Patient Disposition: Home, Self-Care Instructions: Fall Prevention (ED), Rib Contusion (ED) Additional Instructions: 1. Tylenol 1000 mg, orally, every 6 hours as needed for pain control. Do not exceed 4000 mg within 24 hours. 2. Lidocaine patch, apply to area of maximal tenderness as directed on the outside packaging. 3. Follow-up with primary care provider in the next 2-3 days for re-evaluation further outpatient management. Return to the ER for any worsening symptoms. Prescriptions: New ketorolac 10 mg tablet 10 mg PO Q6H PRN (Reason: pain) 5 Days Qty: 20 0RF Rx Instructions: Patient received Toradol in the emergency room. Discontinued ibuprofen 800 mg tablet 800 mg PO Q8H PRN (Reason: pain) Qty: 30 0RF No Action oxycodone 5 mg capsule 5 mg PO Q4H PRN (Reason: pain (scale score 4-6)) Qty: 20 0RF
[2022-06-14 21:58] LABS: Appearance Urine Clear; Color Urine Yellow; Glucose Urine UA Negative (Negative); Leukocyte Esterase Urine Negative (Negative); Nitrite Urine Negative (Negative); Urine Blood Negative (Negative); Urine Ketones Negative (Negative); Urine Protein Negative (Neg-Trace)
[2022-06-14 22:05] LABS: UPreg QC Valid YES; Urine Pregnancy NEGATIVE (NEGATIVE)
[2022-06-14] MEDS: Lidocaine 4 % Patch ADH..PATCH 1 PATCH TRANSDERMA (22:39)
[2022-06-14] MEDS: Acetaminophen 325 MG TABLET 975 MG PO (22:39)
[2022-06-14] MEDS: Ketorolac Tromethamine 15 MG/ML VIAL IM (22:40)
== END 2022-06-15 00:12 | disposition home or self-care (01) ==
PROVIDERS: Emergency Provider Student in an Organized Health Care Education/Training Program
DX: S20.211A Contusion of right front wall of thorax, initial encounter (principal); W00.2XXA Other fall from one level to another due to ice and snow, initial encounter; Y93.89 Activity, other specified; Y92.039 Unspecified place in apartment as the place of occurrence of the external cause; Y99.9 Unspecified external cause status
CPT/HCPCS: 71101; 71250; 81003; 81025; 96372; 99284; J1885

== ENCOUNTER 2022-07-14 12:31 | Emergency (ER) | payer OTHER, SELFPAY ==
--- NOTE | ~2022-07-14 | XR_ITS ---
EXAMINATION: XR CHEST CLINICAL INFORMATION: Chest pain. COMPARISON: 06/14/2022 chest and rib radiographs. TECHNIQUE: 2 views of the chest were obtained. FINDINGS: No significant abnormality is noted involving the heart, lungs, mediastinum, bony thorax or soft tissues. XR/XR chest 2V IMPRESSION: No acute cardiopulmonary process.
[2022-07-14 12:47] VITALS: BP 153/74; PULSE 97; RESP 18; TEMP 36.7; O2SAT 98; BMI 27.4
--- NOTE | 2022-07-14 12:49 | ECG_ITS ---
Test Reason : chest pain Blood Pressure : / mmHG Vent. Rate : 070 BPM Atrial Rate : 070 BPM P-R Int : 142 ms QRS Dur : 082 ms QT Int : 402 ms P-R-T Axes : 011 022 031 degrees QTc Int : 434 ms Normal sinus rhythm with sinus arrhythmia Normal ECG When compared with ECG of 02-JUL-2021 17:15, No significant change was found Referred By: Geneva Wilson Electronically Signed By:Arturo Villagomez
[2022-07-14 13:14] LABS: MANUAL DIFF FLAG NO
[2022-07-14 13:16] LABS: Basophils Percent Auto 0.7 % (0-2); Eosinophils Absolute Auto 0.1 X10*3/uL (0.0-0.4); Eosinophils Percent Auto 2.4 % (0-4); Hematocrit 37.2 % (37.0-47.0); Hemoglobin 12.8 g/dl (12.0-16.0); Imm Gran Abs Auto 0.02 X10*3/uL (0.00-0.03); Imm Gran Pct Auto 0.3 % (0.0-0.4); Lymphocytes Absolute Auto 1.7 X10*3/uL (1.2-4.9); Lymphocytes Percent Auto 28.9 % (20-40); Mean Corpuscular HGB Conc 34.4 g/dl (31.0-35.0); Mean Corpuscular Hemoglobin 29.2 pg (27.0-33.0); Mean Corpuscular Volume 84.7 fL (80.0-98.0); Mean Platelet Volume 10.2 fL (9.4-12.3); Monocytes Absolute Auto 0.3 X10*3/uL (0.1-1.2); Monocytes Percent Auto 5.2 % (2-11); Neutrophils Absolute Auto 3.7 x10*3/uL (2.0-8.3); Neutrophils Percent Auto 62.5 % (45-73); Platelet Count 276 X10*3/uL (160-400); Red Blood Count 4.39 X10*6/uL (4.20-5.50); Red Cell Distribution Width 12.3 % (11.0-16.0)
--- NOTE | 2022-07-14 13:16 | ED_ITS ---
HPI - Chest Pain General Chief Complaint: Chest Pain <LORI Leigh - Last Filed: 07/14/22 13:17> Stated Complaint: sob <LORI Leigh - Last Filed: 07/14/22 13:17> Time Seen by Provider: 07/14/22 13:29 <LORI Leigh - Last Filed: 07/14/22 13:17> Related Data Home Medications: Previous Rx's Medication Instructions Recorded oxycodone 5 mg capsule 5 mg PO Q4H PRN pain (scale score 06/01/21 4-6) #20 caps ketorolac 10 mg tablet 10 mg PO Q6H PRN pain 5 days #20 06/14/22 tabs <LORI Leigh - Last Filed: 07/14/22 13:17> Allergies/Adverse Reactions: Allergies Allergy/AdvReac Type Severity Reaction Status Date / Time No Known Allergies Allergy Verified 06/14/22 20:33 <LORI Leigh - Last Filed: 07/14/22 13:17> [facility] Past Medical History Surgical History: Surgical History H/O section <LORI Leigh - Last Filed: 07/14/22 13:17> Social History Social History: Social History Alcohol intake: never Patient Tobacco Use Status: Never used Tobacco Advance Directives: No Advance Directives Information Provided: No 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 occupational status: 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, 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 <LORI Leigh - Last Filed: 07/14/22 13:17> Physical Exam Vital Signs: Vital Signs: Last Vital Signs Temp 98.0 F 07/14/22 12:47 Pulse 97 07/14/22 12:47 Resp 18 07/14/22 12:47 BP 153/74 H 07/14/22 12:47 Pulse Ox 98 07/14/22 12:47 O2 Del Method Room Air 07/14/22 12:47 BMI result Body Mass Index 27.4 <LORI Leigh - Last Filed: 07/14/22 13:17> Vital Signs: Last Vital Signs Temp 98.0 F 07/14/22 12:47 Pulse 97 07/14/22 12:47 Resp 18 07/14/22 12:47 BP 153/74 H 07/14/22 12:47 Pulse Ox 98 07/14/22 12:47 O2 Del Method Room Air 07/14/22 12:47 BMI result Body Mass Index 27.4 <Denis Buenrostro - Last Filed: 07/14/22 14:58> Course Course Course Narrative: RME - 26 yo female with history of COVID-19 06/26/22 presents to the ER for evaluation of acute onset of left sided chest pain that started at 10am today. Described as someone sitting on her chest. She is SOB and coughing. Pain is located under left breast. Went to Urgent Care but was referred to ER for further evaluation. HR 97 with SpO2 98%. Plan: EKG, labs, CXR, coags ordered <LORI Leigh - Last Filed: 07/14/22 13:17> Reevaluation(s) Reevaluation #1: Patient still has some discomfort while taking a deep breath. Her D- dimer was negative, troponin was negative and was drawn over 4 hours after her symptom onset. Patient's symptoms are mostly related to inflammation such as costochondritis. I discussed all this with the patient she will follow-up with PCP <Denis Buenrostro - Last Filed: 07/14/22 14:58> Time: 14:55 <Denis Buenrostro - Last Filed: 07/14/22 14:58> Medical Decision Making Lab Data Result Diagrams: 07/14/22 13:06 07/14/22 13:07 <LORI Leigh - Last Filed: 07/14/22 13:17> Labs: Lab Results 07/14/22 07/14/22 07/14/22 Range/Units 13:06 13:06 13:06 WBC 6.0 (4.8-10.8) X10*3/uL RBC 4.39 (4.20-5.50) X10*6/uL Hgb 12.8 (12.0-16.0) g/dl Hct 37.2 (37.0-47.0) % MCV 84.7 (80.0-98.0) fL MCH 29.2 (27.0-33.0) pg MCHC 34.4 (31.0-35.0) g/dl RDW 12.3 (11.0-16.0) % Plt Count 276 (160-400) X10*3/uL MPV 10.2 (9.4-12.3) fL Immature Gran % (Auto) 0.3 (0.0-0.4) % Neut % (Auto) 62.5 (45-73) % Lymph % (Auto) 28.9 (20-40) % Robertson % (Auto) 5.2 (2-11) % Eos % (Auto) 2.4 (0-4) % Baso % (Auto) 0.7 (0-2) % Lymph # (Auto) 1.7 (1.2-4.9) X10*3/uL Robertson # (Auto) 0.3 (0.1-1.2) X10*3/uL Eos # (Auto) 0.1 (0.0-0.4) X10*3/uL Baso # (Auto) 0.0 (0.0-0.2) X10*3/uL Abs Immat Gran (auto) 0.02 (0.00-0.03) X10*3/uL Absolute Neuts (auto) 3.7 (2.0-8.3) x10*3/uL Absolute Nucleated RBC 0.000 (0.0-0.012) X10*3/uL Nucleated RBC % (auto) 0.0 (0.0-0.2) /100WBC PT 10.1 (10.0-13.1) SEC INR 0.9 (0.9-1.1) APTT 28.6 (26.0-36.4) SEC D-Dimer High Sensitivty < 150 NG/ML Sodium (135-145) mmol/L Potassium (3.3-5.1) mmol/L Chloride (96-108) mmol/L Carbon Dioxide (22-29) mmol/L Anion Gap (12-20) BUN (9-16) mg/dL Creatinine (0.5-1.4) mg/dL Estim Creat Clear Calc Estimated GFR Random Glucose (60-115) mg/dL Calcium (8.4-10.2) mg/dL Magnesium (1.6-2.6) mg/dL Total Bilirubin (0.0-1.0) mg/dL Direct Bilirubin (0.0-0.5) mg/dL AST (5-31) U/L ALT (0-31) U/L Alkaline Phosphatase (39-117) U/L Troponin I High Sens < 3.5 (<3.5-17.0) ng/L Total Protein (6.5-8.0) g/dL Albumin (3.5-5.0) g/dL 07/14/22 Range/Units 13:07 WBC (4.8-10.8) X10*3/uL RBC (4.20-5.50) X10*6/uL Hgb (12.0-16.0) g/dl Hct (37.0-47.0) % MCV (80.0-98.0) fL MCH (27.0-33.0) pg MCHC (31.0-35.0) g/dl RDW (11.0-16.0) % Plt Count (160-400) X10*3/uL MPV (9.4-12.3) fL Immature Gran % (Auto) (0.0-0.4) % Neut % (Auto) (45-73) % Lymph % (Auto) (20-40) % Robertson % (Auto) (2-11) % Eos % (Auto) (0-4) % Baso % (Auto) (0-2) % Lymph # (Auto) (1.2-4.9) X10*3/uL Robertson # (Auto) (0.1-1.2) X10*3/uL Eos # (Auto) (0.0-0.4) X10*3/uL Baso # (Auto) (0.0-0.2) X10*3/uL Abs Immat Gran (auto) (0.00-0.03) X10*3/uL Absolute Neuts (auto) (2.0-8.3) x10*3/uL Absolute Nucleated RBC (0.0-0.012) X10*3/uL Nucleated RBC % (auto) (0.0-0.2) /100WBC PT (10.0-13.1) SEC INR (0.9-1.1) APTT (26.0-36.4) SEC D-Dimer High Sensitivty NG/ML Sodium 140 (135-145) mmol/L Potassium 4.3 (3.3-5.1) mmol/L Chloride 108 (96-108) mmol/L Carbon Dioxide 24 (22-29) mmol/L Anion Gap 12 (12-20) BUN 8 L (9-16) mg/dL Creatinine 0.74 (0.5-1.4) mg/dL Estim Creat Clear Calc 119.7 Estimated GFR > 60 Random Glucose 93 (60-115) mg/dL Calcium 9.5 (8.4-10.2) mg/dL Magnesium 2.1 (1.6-2.6) mg/dL Total Bilirubin 0.6 (0.0-1.0) mg/dL Direct Bilirubin 0.2 (0.0-0.5) mg/dL AST 14 (5-31) U/L ALT 14 (0-31) U/L Alkaline Phosphatase 86 (39-117) U/L Troponin I High Sens (<3.5-17.0) ng/L Total Protein 7.0 (6.5-8.0) g/dL Albumin 4.8 (3.5-5.0) g/dL <LORI Leigh - Last Filed: 07/14/22 13:17> Lab Results 07/14/22 07/14/22 07/14/22 Range/Units 13:06 13:06 13:06 WBC 6.0 (4.8-10.8) X10*3/uL RBC 4.39 (4.20-5.50) X10*6/uL Hgb 12.8 (12.0-16.0) g/dl Hct 37.2 (37.0-47.0) % MCV 84.7 (80.0-98.0) fL MCH 29.2 (27.0-33.0) pg MCHC 34.4 (31.0-35.0) g/dl RDW 12.3 (11.0-16.0) % Plt Count 276 (160-400) X10*3/uL MPV 10.2 (9.4-12.3) fL Immature Gran % (Auto) 0.3 (0.0-0.4) % Neut % (Auto) 62.5 (45-73) % Lymph % (Auto) 28.9 (20-40) % Robertson % (Auto) 5.2 (2-11) % Eos % (Auto) 2.4 (0-4) % Baso % (Auto) 0.7 (0-2) % Lymph # (Auto) 1.7 (1.2-4.9) X10*3/uL Robertson # (Auto) 0.3 (0.1-1.2) X10*3/uL Eos # (Auto) 0.1 (0.0-0.4) X10*3/uL Baso # (Auto) 0.0 (0.0-0.2) X10*3/uL Abs Immat Gran (auto) 0.02 (0.00-0.03) X10*3/uL Absolute Neuts (auto) 3.7 (2.0-8.3) x10*3/uL Absolute Nucleated RBC 0.000 (0.0-0.012) X10*3/uL Nucleated RBC % (auto) 0.0 (0.0-0.2) /100WBC PT 10.1 (10.0-13.1) SEC INR 0.9 (0.9-1.1) APTT 28.6 (26.0-36.4) SEC D-Dimer High Sensitivty < 150 NG/ML Sodium (135-145) mmol/L Potassium (3.3-5.1) mmol/L Chloride (96-108) mmol/L Carbon Dioxide (22-29) mmol/L Anion Gap (12-20) BUN (9-16) mg/dL Creatinine (0.5-1.4) mg/dL Estim Creat Clear Calc Estimated GFR Random Glucose (60-115) mg/dL Calcium (8.4-10.2) mg/dL Magnesium (1.6-2.6) mg/dL Total Bilirubin (0.0-1.0) mg/dL Direct Bilirubin (0.0-0.5) mg/dL AST (5-31) U/L ALT (0-31) U/L Alkaline Phosphatase (39-117) U/L Troponin I High Sens < 3.5 (<3.5-17.0) ng/L Total Protein (6.5-8.0) g/dL Albumin (3.5-5.0) g/dL 07/14/22 Range/Units 13:07 WBC (4.8-10.8) X10*3/uL RBC (4.20-5.50) X10*6/uL Hgb (12.0-16.0) g/dl Hct (37.0-47.0) % MCV (80.0-98.0) fL MCH (27.0-33.0) pg MCHC (31.0-35.0) g/dl RDW (11.0-16.0) % Plt Count (160-400) X10*3/uL MPV (9.4-12.3) fL Immature Gran % (Auto) (0.0-0.4) % Neut % (Auto) (45-73) % Lymph % (Auto) (20-40) % Robertson % (Auto) (2-11) % Eos % (Auto) (0-4) % Baso % (Auto) (0-2) % Lymph # (Auto) (1.2-4.9) X10*3/uL Robertson # (Auto) (0.1-1.2) X10*3/uL Eos # (Auto) (0.0-0.4) X10*3/uL Baso # (Auto) (0.0-0.2) X10*3/uL Abs Immat Gran (auto) (0.00-0.03) X10*3/uL Absolute Neuts (auto) (2.0-8.3) x10*3/uL Absolute Nucleated RBC (0.0-0.012) X10*3/uL Nucleated RBC % (auto) (0.0-0.2) /100WBC PT (10.0-13.1) SEC INR (0.9-1.1) APTT (26.0-36.4) SEC D-Dimer High Sensitivty NG/ML Sodium 140 (135-145) mmol/L Potassium 4.3 (3.3-5.1) mmol/L Chloride 108 (96-108) mmol/L Carbon Dioxide 24 (22-29) mmol/L Anion Gap 12 (12-20) BUN 8 L (9-16) mg/dL Creatinine 0.74 (0.5-1.4) mg/dL Estim Creat Clear Calc 119.7 Estimated GFR > 60 Random Glucose 93 (60-115) mg/dL Calcium 9.5 (8.4-10.2) mg/dL Magnesium 2.1 (1.6-2.6) mg/dL Total Bilirubin 0.6 (0.0-1.0) mg/dL Direct Bilirubin 0.2 (0.0-0.5) mg/dL AST 14 (5-31) U/L ALT 14 (0-31) U/L Alkaline Phosphatase 86 (39-117) U/L Troponin I High Sens (<3.5-17.0) ng/L Total Protein 7.0 (6.5-8.0) g/dL Albumin 4.8 (3.5-5.0) g/dL <Denis Buenrostro - Last Filed: 07/14/22 14:58> Discharge Plan Discharge Clinical Impression: Chest pain <LORI Leigh - Last Filed: 07/14/22 13:17> Patient Disposition: Home, Self-Care <LORI Leigh - Last Filed: 07/14/22 13:17> Instructions: Chest Pain (ED) <LORI Leigh - Last Filed: 07/14/22 13:17> Additional Instructions: your chest x-ray, EKG, and blood work was all reassuring today. May use ibuprofen, Tylenol for your discomfort follow-up with your primary doctor <LORI Leigh - Last Filed: 07/14/22 13:17> Prescriptions: No Action oxycodone 5 mg capsule 5 mg PO Q4H PRN (Reason: pain (scale score 4-6)) Qty: 20 0RF ketorolac 10 mg tablet 10 mg PO Q6H PRN (Reason: pain) 5 Days Qty: 20 0RF Rx Instructions: Patient received Toradol in the emergency room. <LORI Leigh - Last Filed: 07/14/22 13:17>
[2022-07-14 13:20] LABS: INTERNATIONAL NORM RATIO 0.9 (0.9-1.1); Prothrombin Time 10.1 SEC (10.0-13.1)
[2022-07-14 13:22] LABS: Partial Thromboplastin Time 28.6 SEC (26.0-36.4)
[2022-07-14 13:28] LABS: Alanine Aminotransferase 14 U/L (0-31); Albumin Level 4.8 g/dL (3.5-5.0); Alkaline Phosphatase 86 U/L (39-117); Anion Gap 12 (12-20); Aspartate Amino Transferase 14 U/L (5-31); Bilirubin Direct 0.2 mg/dL (0.0-0.5); Bilirubin Total 0.6 mg/dL (0.0-1.0); Blood Urea Nitrogen 8 mg/dL (9-16); Calcium 9.5 mg/dL (8.4-10.2); Carbon Dioxide 24 mmol/L (22-29); Chloride 108 mmol/L (96-108); Creatinine Clr Calc Pharmacy 119.7; Estimated Glomerular Filt Rate > 60; Glucose Random 93 mg/dL (60-115); Magnesium 2.1 mg/dL (1.6-2.6); Potassium 4.3 mmol/L (3.3-5.1); Sodium 140 mmol/L (135-145)
[2022-07-14 13:47] LABS: Troponin-I High Sensitivity < 3.5 ng/L (<3.5-17.0)
[2022-07-14 14:24] LABS: D Dimer High Sensitivity < 150 NG/ML
[2022-07-14 15:03] VITALS: BP 134/84; PULSE 73; RESP 18; TEMP 35.9; O2SAT 99
== END 2022-07-14 15:06 | disposition home or self-care (01) ==
PROVIDERS: Physician Assistant; Emergency Provider Emergency Medicine
DX: R07.89 Other chest pain (principal); Z79.899 Other long term (current) drug therapy
CPT/HCPCS: 36415; 71046; 80048; 80076; 83735; 84484; 85025; 85379; 85610; 85730; 93005; 99283

== ENCOUNTER 2023-02-12 12:29 | Outpatient (REF) | payer OTHER, SELFPAY ==
--- NOTE | ~2023-02-12 | XR_ITS ---
EXAMINATION: XR AP STANDING VIEW OF BILATERAL KNEES. LATERAL AND SUNRISE VIEWS LEFT KNEE. CLINICAL INFORMATION: Pain left knee COMPARISON: None TECHNIQUE: AP standing view of bilateral knees. [place] and lateral views of the left knee. FINDINGS: Left knee: Mild medial joint space narrowing with tiny medial marginal osteophytes. Moderate joint effusion. Right knee: AP view of the right knee demonstrates mild medial joint space narrowing. XR/XR knee standing BI IMPRESSION: 1. Mild degenerative changes left knee with moderate joint effusion. 2. Mild medial joint space narrowing right knee.
--- NOTE | ~2023-02-12 | XR_ITS ---
EXAMINATION: XR AP STANDING VIEW OF BILATERAL KNEES. LATERAL AND SUNRISE VIEWS LEFT KNEE. CLINICAL INFORMATION: Pain left knee COMPARISON: None TECHNIQUE: AP standing view of bilateral knees. [place] and lateral views of the left knee. FINDINGS: Left knee: Mild medial joint space narrowing with tiny medial marginal osteophytes. Moderate joint effusion. Right knee: AP view of the right knee demonstrates mild medial joint space narrowing. XR/XR knee LT 2V IMPRESSION: 1. Mild degenerative changes left knee with moderate joint effusion. 2. Mild medial joint space narrowing right knee.
== END 2023-02-12 12:30 | disposition home or self-care (01) ==
LOC: HO.HOSX 12:29
PROVIDERS: Visit Provider Physician Assistant
DX: M25.562 Pain in left knee (principal); S83.512D Sprain of anterior cruciate ligament of left knee, subsequent encounter; X58.XXXD Exposure to other specified factors, subsequent encounter
CPT/HCPCS: 73560; 73565; 99212

== ENCOUNTER 2023-02-12 12:54 | Outpatient (AMB) | payer OTHER, SELFPAY ==
--- NOTE | 2023-02-12 13:02 | MHC.OFFVIS ---
Intake Intake Visit Reasons: ov- Left ACL tear Intake Note: Lorena is a 27 year old female who presents today to discuss left knee surgery. twisted her knee on 09/25/2021. MRI done at [facility]. Allergies No Known Allergies Allergy (Verified 06/14/22 20:33) HPI ov- Left ACL tear HPI Details Lorena is a 27 year old woman who presents to discuss her left knee ACL tear. She complains of pain with daily activity, worse with twisting activities. She is limited in her physical capabilities and says she is still unable to run. This has been present since a twisting injury on 09/25/21 She was last seen by LORI Acharya on 11/06/21 where an ACL reconstruction was discussed, but the patient did not move forward with surgery. 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 Review of Systems Const All systems reviewed & are unremarkable except as noted in HPI and below Physical Exam Const General: no acute distress, alert and awake Orientation/consciousness: patient oriented x3 HEENT Head: Yes normocephalic and Yes atraumatic Eyes EOM: EOMs intact bilaterally Resp Effort & Inspection: normal respiratory effort and able to speak in complete sentences Cardio Jugular venous distension: no JVD Skin General skin exam: turgor normal Rashes: no rashes Neuro General: patient oriented x3 Extrem Other: Left Knee: 2+ Lachaman's too apprehensive for PS no effusion full ROM mild left quad atrophy Psych Appearance: grossly normal Affect: normal affect Attitude: cooperative Results Reviewed Results Reviewed: I personally reviewed relevant MR images Complete ACL tear with impaction fractures of the posterior medial/lateral tibia and anterior lateral femoral condyle. Small joint effusion. Grade 1 fibular collateral ligament sprain. Mild popliteus muscle strain. No meniscal tear. Assessment & Plan Assessment & Plan (1) Left ACL tear: Code(s): S83.512A - Sprain of anterior cruciate ligament of left knee, initial encounter Plan: This is a 27 year old woman with a complete left ACL tear, from an injury, DOI: 6/15/22. She has pain with daily activity, worse with twisting activities. She is limited in her ADLs and feels frustrated by this. I discussed her diagnosis and treatment options. I recommend a left knee ACL reconstruction with quadriceps autograft vs possible allograft. I discussed the risks, benefits, and alternatives including, but not limited to, the risk of pain, infection, stiffness, need for further surgery as well as potential medical complications such as blood clots, pulmonary embolism and cardiac complications. I discussed the recovery timeline and process as well as the importance of PT. Lorena is a good candidate for this surgery, and she wishes to proceed with this decision. She will speak with Priscilla to schedule this procedure. Plan Scribed for Damián Jorge MD by Red Mendez, medical supervisor, on [ ] at [ ], EST. Orders: Orders XR knee standing BI 02/12/23 M25.569 - Pain in unspecified knee Anabella Acharya PA-C XR knee LT 2V 02/12/23 M25.569 - Pain in unspecified knee Anabella Acharya PA-C PT Evaluation and Treatment 02/12/23 S83.512A - Sprain of anterior cruciate ligament of left knee, initial encounter Damián Jorge MD Coding Level of Care Code Est Pt Level 4 (22446) Diagnoses Left ACL tear S83.512A
== END 2023-02-12 16:05 | disposition home or self-care (01) ==
PROVIDERS: Visit Provider Orthopaedic Surgery
DX: S83.512A Sprain of anterior cruciate ligament of left knee, initial encounter (principal)
CPT/HCPCS: 99214

== ENCOUNTER 2023-07-16 14:46 | Emergency (ER) | payer OTHER, SELFPAY ==
--- NOTE | ~2023-07-16 | CT_ITS ---
EXAMINATION: CT HEAD WITHOUT CONTRAST CLINICAL INFORMATION: acute onset right sided headache COMPARISON: CT head January 03, 2017 TECHNIQUE: Contiguous axial imaging was performed from the skull base to vertex without intravenous administration of contrast. Coronal and sagittal reformatted images are performed at the CT scanner. [This CT examination was performed using dose optimization techniques as appropriate, variously including the following: *Automated exposure control *Adjustment of mA and/or kV according to patient size (this includes techniques or standardized protocols for targeted exams where dose is matched to indication/reason for exam; i.e. extremities or head) *Use of iterative reconstruction technique] DLP: 693 mGy-cm. FINDINGS: There is no evidence of acute intracranial hemorrhage or territorial infarction. No abnormal mass-effect or midline shift is seen. Moore to white matter differentiation is well preserved. No extra-axial fluid collections are identified. The ventricles are normal in size. There is no abnormal attenuation within the brain parenchyma. There is no osseous abnormality. The mastoid air cells and visualized portions of the paranasal sinuses are well-aerated. CT/CT head/brain wo IV con IMPRESSION: No acute intracranial pathology.
[2023-07-16 14:56] VITALS: BP 158/103; PULSE 108; RESP 18; TEMP 36.6; O2SAT 99; BMI 25.1
--- NOTE | 2023-07-16 14:59 | ED_ITS ---
HPI - Headache General Chief Complaint: Headache Stated Complaint: headache r eye pressure Time Seen by Provider: 07/16/23 15:42 Source: patient Mode of arrival: ambulatory Limitations: no limitations History of Present Illness HPI Narrative: 27 year old female presents for evaluation of acute worsening of headache with pressure behind R eye and blurred vision. She reports headache that has been occurring over the past week. When she was at work today, she suddenly felt a lightning bolt in the right side of her head that was accompanied with pressure behind her R eye and headache along the right side of her head. On presentation to ED, she is diaphoretic, nauseous and vomiting. She reports that the headaches she has been experiencing this week has not been like this. No history of similar headaches or migraines. Took tylenol and ibuprofen at 10am today. MD elicited complaint: headache Onset (ago): hour(s) Onset description: suddenly Location: right Severity: severe Pain scale (0-10): 7 Related Data Previous Rx's ?Medication ?Instructions ?Recorded oxycodone 5 mg capsule 5 mg PO Q4H PRN pain (scale score 06/01/21 4-6) #20 caps ketorolac 10 mg tablet 10 mg PO Q6H PRN pain 5 days #20 06/14/22 tabs Allergies Allergy/AdvReac Type Severity Reaction Status Date / Time No Known Allergies Allergy Verified 07/16/23 14:58 Review of Systems 2 Review of Systems: Yes all other systems are reviewed and are negative [facility] Past Medical History Surgical History H/O section Social History Social History Alcohol intake: never Patient Tobacco Use Status: Never used Tobacco Advance Directives: No Advance Directives Information Provided: No Current occupational status: 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 Oriented X3. In distress, vomiting, diaphoretic Head: normocephalic, atraumatic. Eyes: Pupils equal, round and reactive to light. CVS: Normal heart rate and rhythm. Pulses normal. Respiratory: No respiratory distress. Breath sounds normal. Abdomen: Soft and nontender. +BS x4 Skin: Skin warm, diaphoretic, Normal skin color. Normal skin turgor. No rashes. Extremities: No lower extremity edema. No joint swelling. Neuro/psych: Oriented X 3. No motor deficit. Normal speech and cognition. Course Course Course Narrative: RME:?27 yo female here for eval of right sided headache x1 week, worsening acutely yesterday when she felt a lightening shock behind her right eye. Endorses intermittent floaters, now having blurred vision. Assoc nausea, vomiting. denies hx of migraines/headaches. denies increased stressors/ anxiety. taking motrin/ tylenol at home without relief. last dose at 1000 today. Hypertensive in triage. exam nonfocal. labs, CT head ordered Full HPI, ROS and PE to be performed by the primary ED provider. Medications Administered Discontinued Medications Generic Name Dose Route Start Last Admin Trade Name Freq PRN Reason Stop Dose Admin Diphenhydramine HCl 50 mg 07/16/23 15:42 07/16/23 15:56 Diphenhydramine Hcl 50 Mg/Ml Vial IVPUSH 07/16/23 15:43 50 mg ONCE ONE Administration Sodium Chloride 1,000 mls @ 999 mls/hr 07/16/23 16:00 07/16/23 16:23 Ns IVCONT 07/16/23 17:00 999 mls/hr .Q1H1M DANK Administration Ketorolac Tromethamine 30 mg 07/16/23 15:42 07/16/23 15:56 Ketorolac Tromethamine 30 Mg/Ml Vial IVPUSH 07/16/23 15:43 30 mg ONCE ONE Administration Metoclopramide HCl 10 mg 07/16/23 15:42 07/16/23 15:56 Metoclopramide Hcl 10 Mg/2 Ml Vial IVPUSH 07/16/23 15:43 10 mg ONCE ONE Administration Medical Decision Making Medical Decision Making MDM Narrative: Lorena is a 27 year old female presenting today for evaluation of acute worsening of headache with R periorbital pressure and vision changes. Denies history of similar headaches or migraines. Reports recurrence of headaches over the past week with acute worsening today at work with severe R sided head pain, nausea, vomiting, vision changes. On exam, she is diaphoretic and vomiting. Administered migraine cocktail with fluids, toradol, benadryl and reglan. She reports feeling well after administered with the pain nearly gone. High suspicion for migraine at this time. CT scan is negative for acute stroke or bleed. No neuro deficits present at the time or presentation or reevaluation. On reevaluation, patient is stable and comfortable. Reports improvement of symptoms. Presentation most like due to migraine with aura. Safe to discharge home with primary care follow and strict return precautions. Differential Diagnosis Differential Diagnoses: The differential diagnosis associated with the presentation includes migraine, tension headache, cluster headache, CVA, SAH Lab Data MDM Lab Attestation statement: I reviewed the patient's lab results. 07/16/23 15:14 07/16/23 15:14 Labs: Lab Results 07/16/23 Range/Units 15:14 WBC 3.2 L (4.8-10.8) X10*3/uL RBC 4.75 (4.20-5.50) X10*6/uL Hgb 14.2 (12.0-16.0) g/dl Hct 40.6 (37.0-47.0) % MCV 85.5 (80.0-98.0) fL MCH 29.9 (27.0-33.0) pg MCHC 35.0 (31.0-35.0) g/dl RDW 11.9 (11.0-16.0) % Plt Count 246 (160-400) X10*3/uL MPV 10.3 (9.4-12.3) fL Immature Gran % (Auto) 0.3 (0.0-0.4) % Neut % (Auto) 54.8 (45-73) % Lymph % (Auto) 28.8 (20-40) % Jack % (Auto) 13.3 H (2-11) % Eos % (Auto) 2.5 (0-4) % Baso % (Auto) 0.3 (0-2) % Lymph # (Auto) 0.9 L (1.2-4.9) X10*3/uL Jack # (Auto) 0.4 (0.1-1.2) X10*3/uL Eos # (Auto) 0.1 (0.0-0.4) X10*3/uL Baso # (Auto) 0.0 (0.0-0.2) X10*3/uL Abs Immat Gran (auto) 0.01 (0.00-0.03) X10*3/uL Absolute Neuts (auto) 1.7 L (2.0-8.3) x10*3/uL Absolute Nucleated RBC 0.000 (0.0-0.012) X10*3/uL Nucleated RBC % (auto) 0.0 (0.0-0.2) /100WBC Sodium 137 (135-145) mmol/L Potassium 3.7 (3.3-5.1) mmol/L Chloride 107 (96-108) mmol/L Carbon Dioxide 21 L (22-29) mmol/L Anion Gap 13 (12-20) BUN 9 (9-16) mg/dL Creatinine 0.75 (0.5-1.4) mg/dL Estim Creat Clear Calc 108.5 Estimated GFR > 60 Random Glucose 77 (60-115) mg/dL Calcium 9.4 (8.4-10.2) mg/dL Magnesium 1.9 (1.6-2.6) mg/dL Total Bilirubin 0.4 (0.0-1.0) mg/dL AST 21 (5-31) U/L ALT 16 (0-31) U/L Alkaline Phosphatase 62 (39-117) U/L Total Protein 7.0 (6.5-8.0) g/dL Albumin 4.5 (3.5-5.0) g/dL Beta HCG, Quant < 2 mIU/mL Radiology Impression Discussion of test interpretation with radiology: I have reviewed the radiologist's reading. Radiologist Impression: EXAMINATION: CT HEAD WITHOUT CONTRAST CLINICAL INFORMATION: acute onset right sided headache COMPARISON: CT head January 03, 2017 TECHNIQUE: Contiguous axial imaging was performed from the skull base to vertex without intravenous administration of contrast. Coronal and sagittal reformatted images are performed at the CT scanner. [This CT examination was performed using dose optimization techniques as appropriate, variously including the following: *Automated exposure control *Adjustment of mA and/or kV according to patient size (this includes techniques or standardized protocols for targeted exams where dose is matched to indication/reason for exam; i.e. extremities or head) *Use of iterative reconstruction technique] DLP: 693 mGy-cm. FINDINGS: There is no evidence of acute intracranial hemorrhage or territorial infarction. No abnormal mass-effect or midline shift is seen. Moore to white matter differentiation is well preserved. No extra-axial fluid collections are identified. The ventricles are normal in size. There is no abnormal attenuation within the brain parenchyma. There is no osseous abnormality. The mastoid air cells and visualized portions of the paranasal sinuses are well-aerated. CT/CT head/brain wo IV con IMPRESSION: No acute intracranial pathology. Discharge Plan Discharge Clinical Impression: Migraine Patient Disposition: Home, Self-Care Instructions: Migraine Headache (ED) Additional Instructions: Your CT scan was normal Your Lab workup was unremarkable. Recommend [id number] Excedrin migraine for recurrent headaches. Follow-up with primary care doctor. Rest and stay hydrated. If you develop new or worsening symptoms call 911 or come back to the ER for further evaluation. Prescriptions: No Action oxycodone 5 mg capsule 5 mg PO Q4H PRN (Reason: pain (scale score 4-6)) Qty: 20 0RF ketorolac 10 mg tablet 10 mg PO Q6H PRN (Reason: pain) 5 Days Qty: 20 0RF Rx Instructions: Patient received Toradol in the emergency room. Stand Alone Forms: Work/School Release Print Language: Iraqi
[2023-07-16 15:17] LABS: MANUAL DIFF FLAG NO
[2023-07-16 15:20] LABS: Basophils Percent Auto 0.3 % (0-2); Eosinophils Absolute Auto 0.1 X10*3/uL (0.0-0.4); Eosinophils Percent Auto 2.5 % (0-4); Hematocrit 40.6 % (37.0-47.0); Hemoglobin 14.2 g/dl (12.0-16.0); Imm Gran Abs Auto 0.01 X10*3/uL (0.00-0.03); Imm Gran Pct Auto 0.3 % (0.0-0.4); Lymphocytes Absolute Auto 0.9 X10*3/uL (1.2-4.9); Lymphocytes Percent Auto 28.8 % (20-40); Mean Corpuscular Hemoglobin 29.9 pg (27.0-33.0); Mean Corpuscular Volume 85.5 fL (80.0-98.0); Mean Platelet Volume 10.3 fL (9.4-12.3); Monocytes Absolute Auto 0.4 X10*3/uL (0.1-1.2); Monocytes Percent Auto 13.3 % (2-11); Neutrophils Absolute Auto 1.7 x10*3/uL (2.0-8.3); Neutrophils Percent Auto 54.8 % (45-73); Platelet Count 246 X10*3/uL (160-400); Red Blood Count 4.75 X10*6/uL (4.20-5.50); Red Cell Distribution Width 11.9 % (11.0-16.0); White Blood Count 3.2 X10*3/uL (4.8-10.8)
[2023-07-16 15:34] LABS: Alanine Aminotransferase 16 U/L (0-31); Albumin Level 4.5 g/dL (3.5-5.0); Alkaline Phosphatase 62 U/L (39-117); Anion Gap 13 (12-20); Aspartate Amino Transferase 21 U/L (5-31); Bilirubin Total 0.4 mg/dL (0.0-1.0); Blood Urea Nitrogen 9 mg/dL (9-16); Calcium 9.4 mg/dL (8.4-10.2); Carbon Dioxide 21 mmol/L (22-29); Chloride 107 mmol/L (96-108); Creatinine Clr Calc Pharmacy 108.5; Estimated Glomerular Filt Rate > 60; Glucose Random 77 mg/dL (60-115); Magnesium 1.9 mg/dL (1.6-2.6); Potassium 3.7 mmol/L (3.3-5.1); Sodium 137 mmol/L (135-145)
[2023-07-16 15:42] LABS: HCG Quantitative < 2 mIU/mL
[2023-07-16] MEDS: diphenhydrAMINE HCL 50 MG/ML VIAL IVPUSH (15:56)
[2023-07-16] MEDS: Metoclopramide HCl 10 MG/2 ML VIAL IVPUSH (15:56)
[2023-07-16] MEDS: Ketorolac Tromethamine 30 MG/ML VIAL IVPUSH (15:56)
[2023-07-16] MEDS: 0.9 % Sodium Chloride 1,000 ML 999 ML IVCONT (16:23)
[2023-07-16 17:45] VITALS: BP 96/48; PULSE 78; RESP 18; TEMP 37; O2SAT 98
[2023-07-16 18:35] VITALS: BP 96/48; PULSE 78; RESP 18; TEMP 37; O2SAT 98
== END 2023-07-16 18:36 | disposition home or self-care (01) ==
PROVIDERS: Physician Assistant Medical; Emergency Provider Emergency Medicine
DX: G43.909 Migraine, unspecified, not intractable, without status migrainosus (principal); R11.2 Nausea with vomiting, unspecified; R10.2 Pelvic and perineal pain; Z79.899 Other long term (current) drug therapy
CPT/HCPCS: 36415; 70450; 80053; 83735; 84702; 85025; 96374; 96375; 99283; 99284; J1200; J1885; J2765

== ENCOUNTER 2024-07-14 14:26 | Outpatient (AMB) | payer OTHER, SELFPAY ==
--- NOTE | 2024-07-14 14:29 | A.OFFVIS_ITS ---
Intake Visit Reasons: ov- Left ACL tear Intake Note: Lorena is a 27 year old woman with a complete left ACL tear, from an injury, DOI: 09/25/21. She has pain with daily activity, worse with twisting activities. She is limited in her ADLs and feels frustrated by this. We previously discussed her diagnosis and treatment options a left knee ACL reconstruction with quadriceps autograft vs possible allograft was recommended and booked but patient missed her pre op appointment and did not follow up. Currently patient rpeorts that he symptoms are getting worse, she is taking tylenol and ibuprofen for her pain. She is not working with PT . Allergies No Known Allergies Allergy (Verified 07/16/23 14:58) HPI HPI ov- Left ACL tear: Details: Lroena comes in today now proximally 2 years after disrupting her ACL in her left knee. She was scheduled with surgery but was unable to do surgery because of work concerns. She returns now complaining of ongoing giving way with locking and pain. This is disrupting her daily life and she can not play with her kids are go to work comfortably. Her MRI from 2021 shows a rupture of her ACL tear with no meniscal injury. She feels the nature of her injury however has changed. She did not previously have the mechanical symptoms that she has now. 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 I recommend ACL reconstruction with allograft. Prior to that I do recommend an MRI to assess the integrity of the meniscus. Meniscal repair changes the expectations of intra and postoperatively. I explained to her the risks, benefits and alternatives to surgery. He is young, healthy and active and I think she would benefit from ACL reconstruction. She agrees. I will order the MRI and she will schedule her proximally 2 months and see me back for her MRI review. (2) Locking of left knee: Code(s): M23.92 - Unspecified internal derangement of left knee Category: Medical Plan: MRI to assess. Orders: Orders MR knee LT wo con Today S83.512A - Sprain of anterior cruciate ligament of left knee, initial encounter Coding Level of Care Code Est Pt Level 4 (72187) Diagnoses Left ACL tear S83.512A Locking of left knee M23.92
--- OUTSIDE RECORDS SUMMARY | 2024-07-14 15:57 | XMS_ITS | Clinical Summary ---
Author Organization [facility] it Address [address] [place] [address] Care Team Providers Care Certified Surgical Technician Name Role Phone ToryLydia miller Primary Care Pro vider Medical History Medical History Date Comments Asthma DX:Asthma Family History Medical History Relation Name Comments Other: htn Father Hypertension Maternal Grandfather COPD Maternal Grandmother No Known Problems Paternal Grandfather No Known Problems Paternal Grandmother No Known Problems Sister Breast cancer Neg Hx Colon cancer Neg Hx Ovarian cancer Neg Hx Prostate cancer Neg Hx Relation Name Status Comments Father Maternal Grandfather Maternal Grandmother Paternal Grandfather Paternal Grandmother Sister Social History Tobacco Use Types Packs/Day Years Used Date Smoking Tobacco: Every Day Smokeless Tobacco: Never Alcohol Use Standard Drinks/Week Comments Yes 0 (1 standard drink = 0.6 oz pur e alcohol) Comments Unknown Sex and Gender Information Value Date Recorded Sex Assigned at Not on file Legal Sex Female 9:34 PM EST Gender Identity Not on file Sexual Orientation Not on file Obstetrics History Plan of Treatment Health Maintenance Due Date Last Done Comments Hepatitis B Vaccines (1 of 3 - 19+ 3-dose series) 2013 Cervical Cancer Screening: P ap Smear 12/07/2020 12/07/2017, 12/07/2017 COVID-19 Vaccine ( - 2023-2 5 season) 2023 Influenza Vaccine (#1) 2023 01/04/2018 DTaP,Tdap,and Td Vaccines (2 - Td or Tdap) 03/23/2028 03/23/2018 HIB Vaccines Aged Out No longer eligi ble based on patient's age to complete this topic HPV Vaccines Aged Out No longer eligi ble based on patient's age to complete this topic Hepatitis A Vaccines Aged Out No long er eligible based on patient's age to complete this topic IPV Vaccines Aged Out No longer eligi ble based on patient's age to complete this topic MMR Vaccines Aged Out No longer eligi ble based on patient's age to complete this topic Meningococcal ACWY Vaccine Aged Out N o longer eligible based on patient's age to complete this topic Meningococcal B Vacine Aged Out No lo nger eligible based on patient's age to complete this topic Pneumococcal Vaccine: Pediatrics (0 to 5 Years) and At-Risk Patients (6 to 64 Years) Aged Out No longer eligible b ased on patient's age to complete this topic RSV Immunization Patients Under 20 months Aged Out No longer eligible b ased on patient's age to complete this topic Varicella Vaccines Aged Out No longer eligible based on patient's age to complete this topic Procedures Procedure Name Priority Date/Time Associated Diagnosis Comments PAP SMEAR Routine 12/07/2017 from Last 3 Months or Most Recently Relevant to Health Maintenance Results * Pap smear (12/07/2017) 12/07/2017 Narrative HISTORICAL TESTING LAB RESULTING AGENCY - 12/10/2017 10:37 AM EDT [id number] RESULTS OF GEN-PROBE APTIMA COMBO 2 ASSAY CHLAMYDIA: ?NEGATIVE N. GONORRHOEAE: ? NEGATIVE RAJENDRA JUAREZ M.D., PATHOLOGIST (CASE ELECTRONICALLY SIGNED 12 10 2017) CLINICAL INFORMATION: Z12.4, Z34.81 Z34.81 ENCOUNTER FOR SUPERVISION OF OTHER NORMAL , FIRST TRIMESTER SOURCE: THINPREP PAP FOR CT/GC GROSS DESCRIPTION: THINPREP VIAL RECEIVED. PHYSICIANS LAUREEN MONTOYA/#/ Laureen Montoya CN LAB CYTOLOGY ORDERABLES Final Result HISTORICAL TESTING LAB RESULTING AGENCY from Last 3 Months or Most Recently Relevant to Health Maintenance Care Teams Certified Surgical Technician Relationship Specialty Start Date End Date Lydia Fuentes DO PCP - General Internal Medicine 07/07/18
--- OUTSIDE RECORDS SUMMARY | 2024-07-14 15:57 | XMS_ITS | Clinical Summary ---
Author Organization [facility] Address [address] [place] [address] Phone Care Team Providers Care Eyelet Riveter Name Role Phone Unavailable Primary Care Provider Unavailabl e Immunizations Immunization Administration Dates Next Due DTP 08/11/1995,06/10/1995,03/12/1995 DTaP 5 07/31/2000,11/21/1998 HPV, Quadrivalent 09/28/2008,08/24/2007,06/18/19 08 Hep A, ped/adol 05/23/2013,10/24/2010 Hep B, ped/adol 08/11/1995,02/10/1995,01/10/1995 Hib (PRP-T) 05/13/1996,199 6,06/10/1995,03/12 IPV 07/31/2000,199 6,06/10/1995,03/12 Influenza, injectable, quadr ivalent, preservative free 02/21/2015,05/23/2013 MMR 07/31/2000,05/13/1996 Meningococcal Conj (Menactra) MCV4P 02/21/2015,0 06/18/2007 Tdap 06/18/2007 Varicella 06/18/2007,11/29/1998 Family History Relation Name Status Comments Father Alive Father: Allergi es / Asthma Maternal Grandmother Materna l grandmother: Emphysema Mother Alive Mother: Alive a nd well Other 1 grandparents: D iabetes mellitus Other 2 Family history of ADD/ADHD, Family history of Cancer, lung Sister Alive Sister: Alive a nd well Social History Tobacco Use Types Packs/Day Years Used Date Smoking Tobacco: Former Comments:Former smoker Comments Unknown Sex and Gender Information Value Date Recorded Sex Assigned at Not on file Legal Sex Female 5:00 PM EDT Gender Identity Not on file Sexual Orientation Not on file Last Filed Vital Signs Vital Sign Reading Time Taken Comments Blood Pressure 123/80 02/21/2015 12:00 AM EST Pulse 82 09/29/2013 12:00 AM EDT Temperature 36.4 ??C (97.6 ??F) 01/09/2014 12:00 AM E DT Respiratory Rate - - Oxygen Saturation - - Inhaled Oxygen Concentration - - Weight 65 kg (143 lb 3.2 oz) 02/21/2015 12:00 AM EST Height 168.3 cm (5' 6.25 ) 02/21/2015 12:[address] Body Mass Index 22.94 02/21/2015 12:00 AM EST Plan of Treatment Health Maintenance Due Date Last Done Comments DTaP,Tdap,and Td Vaccines (7 - Td or Tdap) 06/17/2017 06/18/2007, 07/31/2000, 11/21/1998, Additional history exists Influenza Vaccines (#1) 2023 02/21/2015, 05/23 COVID-19 Vaccine ( season) 2023 Hepatitis B Vaccines Completed 08/11/1995, 02/10/1995, 01/10/1995 HIB Vaccines Completed 05/13/1996, 07/14, 06/10/1995, Additional history exists IPV Vaccines Completed 07/31/2000, 07/14, 06/10/1995, Additional history exists MMR Vaccines Completed 07/31/2000, 05/13/1996 Varicella Vaccines Completed 06/18/2007, 11/29/1998 HPV Vaccines Completed 09/28/2008, 08/11, 06/18/2007 Hepatitis A Vaccines Completed 05/23/2013, 10/25/19 11 Meningococcal Vaccine Aged Out 02/21/2015, 008 No longer eligible based on patient's age to complete this topic Men B Vaccine Aged Out No longer elig ible based on patient's age to complete this topic Pneumococcal Vaccine Aged Out No long er eligible based on patient's age to complete this topic Procedures * Due to [place] [employer] law, this organization might not be sharing sensitive test results. Procedure Name Priority Date/Time Associated Diagnosis Comments CHLAMYDIA AND GONORRHEA, AMPLIFIED Routine 02/22/2015 2:14 PM EST from Last 3 Months or Most Recently Relevant to Health Maintenance Results * Due to [place] state law, this organization might not be sharing sensitive test results. * Chlamydia and Gonorrhoea, Amplified (02/22/2015 2:14 PM EST) URINE CHLAMYDIA AMP PROBE NEGATIVE [facility] Comment: No Chlamydia Trachomatis RNA detected in this patient's sample (REFERENCE RANGE/NORMAL VALUE: NOT DETECTED) URINE GC AMP PROBE NEGATIVE [facility] Comment: No Neisseria Gonorrhoeae RNA detected in this patient's sample (REFERENCE RANGE/NORMAL VALUE: NOT DETECTED) NOTE: This test uses barrel assembler-mediated amplification method to detect rRNA from C.Trachomatis and N.Gonorrhoeae. A negative result does not preclude infection. In the case of a negative urine result, testing of an endocervical(female) or urethral(male) specimen is recommended if there is high clinical suspicion of infection. The performance characteristics of this test have not been evaluated in children. The Aptima Combo2 assay is not intended for the evaluation of suspected sexual abuse or for other medico-legal indications. The ordering provider should assess if the patient had consensual sex without risk of sexual abuse. Consult the [facility] if needed. Contact phone number . Therapeutic failure or success cannot be determined with the Aptima Combo2 assay since nucleic acid may persist following appropriate antimicrobial therapy. The Centers for Disease Control and Prevention (CDC) recommends confirmatory retesting using culture or a different nucleic acid amplification test when positive results occur, if indicated. Testing performed or reported by [facility], a Service of [facility], [address] [place] [address] Ant Banegas MD, PhD, Quality Control Engineer 02/22/2015 2:14 PM EST Narrative [facility] - 02/22/2015 2:14 PM EST URINE CHLAMYDIA GC AMP PROBE us Luciana Marsh NP LAB MICROBIOLOGY - GENERAL ORDER ALE Final Result [facility] [address] [place] [address], from Last 3 Months or Most Recently Relevant to Health Maintenance
--- OUTSIDE RECORDS SUMMARY | 2024-07-14 15:57 | XMS_ITS | Encounter Summary ---
Author Organization [facility] Address [address] [place] [id number] Phone Care Team Providers Care Automatic Nailing Machine Feeder Name Role Phone Lucy Nava MD Primary Care Provider Encounter Details Date Type Department Care Team (Late st Contact Info) Description 04/17/2011 Documentation [facility] [place] Family Medicine [address] [place] [address] Family Medicine, Physician [address] [place], [place] [id number] Social History Tobacco Use Types Packs/Day Years Used Date Smoking Tobacco: Never Assessed Comments Unknown Sex and Gender Information Value Date Recorded Sex Assigned at Not on file Legal Sex Female 5:00 PM EDT Gender Identity Not on file Sexual Orientation Not on file documented as of this encounter Plan of Treatment Not on file documented as of this encounter Visit Diagnoses Not on filedocumented in this encounter Care Teams Automatic Nailing Machine Feeder Relationship Specialty Start Date End Date Lucy Nava MD [address] [facility] [place] [address] PCP - General 11/21/16 07/21/22 documented as of this encounter
--- OUTSIDE RECORDS SUMMARY | 2024-07-14 15:58 | XMS_ITS | Encounter Summary ---
Author Organization [facility] Address [address] [place] [id number] Phone Care Team Providers Care Sql Programmer Analyst Name Role Phone Lucy Nava MD Primary Care Provider Encounter Details Date Type Department Care Team (Late st Contact Info) Description 07/30/2012 Documentation [facility] [place] Family Medicine [address] [place] [address] Family Medicine, Physician [address] [place], [place] [id number] Social History Tobacco Use Types Packs/Day Years [...] on filedocumented in this encounter Care Teams Sql Programmer Analyst Relationship Specialty Start Date End Date Lucy Nava MD [address] [facility] [place] [address] PCP - General 11/21/16 07/21/22 documented as of this encounter
--- OUTSIDE RECORDS SUMMARY | 2024-07-14 15:58 | XMS_ITS | Clinical Summary ---
Author Organization [employer] Address [address] [place] [address] [address] [place] [address] Care Team Providers Care Three Knife Trimmer Name Role Phone Unavailable Primary Care Provider Unavailabl e Immunizations Name Administration Dates Next Due DTP 08/11/1995,06/10/1995,03/12/1995 DTaP, 5 pertussis antigens 07/31/2000,11/21/1998 HPV, Quadrivalent 09/28/2008,08/24/2007,06/18/19 08 Hep A, ped/adol, 2 dose 05/23/2013,10/24/2010 Hep B, Adolescent or Pediatric 08/11/1995,1994,01/10/1995 Hib (PRP-T) 05/13/1996,199 6,06/10/1995,03/12 IPV 07/31/2000,199 6,06/10/1995,03/12 Influenza injectable quadriv alent preservative free 02/21/2015,05/23/2013 MMR 07/31/2000,05/13/1996 Meningococcal MCV4P [id number]-135 02/21/2015,06/18/19 08 PPD Test 09/28/2021 Pfizer Covid-19 Vaccine 12+ 05/12/2020, 1 Pfizer Covid-19 Vaccine 12+ Bivalent 04/03/2022 Tdap 06/18/2007 Varicella 06/18/2007,11/29/1998 Social History Tobacco Use Types Packs/Day Years Used Date Smoking Tobacco: Never Assessed Comments Unknown Sex and Gender Information Value Date Recorded Sex Assigned at Not on file Legal Sex Female 3:47 PM EST Gender Identity Not on file Sexual Orientation Not on file Plan of Treatment Health Maintenance Due Date Last Done Comments Depression Screening 1994 HIV Screening 1994 SDOH Screening 1994 Alcohol/Substance Use Screening 2006 Tobacco Screening 2006 Family Planning (PISQ) 2009 Hepatitis C Screening 2012 Pneumococcal Vaccine: Pediatrics (0 to 5 Years) and At-Risk Patients (6 to 49) Years) (1 of 2 - PCV) 2013 Pap Smear 12/27/2015 COVID-19 Vaccine ( - season) 2023 04/03/2022, 05/12/2020, 04/21/2020 Influenza Vaccine (#1) 2023 9, 02/21/2015, 05/23/2013 DTaP/Tdap/Td Vaccines (8 - Td or Tdap) 02/15/2029 02/15/2019, 06/18/2007, 07/31/2000, Additional history exists Zoster Vaccines (1 of 2) 2044 RSV Patients and Patients Aged 60 years or older (1 - 1-dose 75+ series) 2069 Hepatitis B Vaccines Completed 08/11/1995, 02/10/1995, 01/10/1995 HIB Vaccines Completed 05/13/1996, 07/14, 06/10/1995, Additional history exists IPV Vaccines Completed 07/31/2000, 07/14, 06/10/1995, Additional history exists HPV Vaccines Completed 09/28/2008, 08/11, 06/18/2007 Hepatitis A Vaccines Completed 05/23/2013, 10/25/19 11 Meningococcal Vaccine Aged Out 02/21/2015, 008 No longer eligible based on patient's age to complete this topic RSV under 20 months Aged Out No longe r eligible based on patient's age to complete this topic Rotavirus Vaccines Aged Out No longer eligible based on patient's age to complete this topic Insurance [facility] [place] [address]
--- OUTSIDE RECORDS SUMMARY | 2024-07-14 15:58 | XMS_ITS | Encounter Summary ---
Author Organization [facility] Address [address] [place] [address] Phone Care Team Providers Care Ceramic Chemist Name Role Phone Lucy Nava MD Primary Care Provider Encounter Details Date Type Department Care Team (Late st Contact Info) Description 11/27/2016 Conversion Encounter [facility] [place] [address] [place] [address] Social History Tobacco Use Types Packs/Day Years [...] on filedocumented in this encounter Care Teams Ceramic Chemist Relationship Specialty Start Date End Date Lucy Nava MD [address] [place] [address] PCP - General 11/21/16 07/21/22 documented as of this encounter
--- OUTSIDE RECORDS SUMMARY | 2024-07-14 15:58 | XMS_ITS | Encounter Summary ---
Author Organization [facility] Address [address] [place] [address] Phone Care Team Providers Care Straddle Carrier Operator Name Role Phone Lucy Nava MD Primary Care Provider Encounter Details Date Type Department Care Team (Late st Contact Info) Description 07/29/2012 Documentation [facility] [place] [address] [place] [address] Family Medicine, Physician [address] [place], [place] [phone] Social History Tobacco Use Types Packs/Day Years [...] on filedocumented in this encounter Care Teams Straddle Carrier Operator Relationship Specialty Start Date End Date Lucy Nava MD 150 [facility] [place] [address] PCP - General 11/21/16 07/21/22 documented as of this encounter
== END 2024-07-14 14:55 | disposition home or self-care (01) ==
LOC: HO.HOS 14:27
PROVIDERS: Visit Provider Orthopaedic Surgery
DX: S83.512A Sprain of anterior cruciate ligament of left knee, initial encounter (principal); M23.92 Unspecified internal derangement of left knee
CPT/HCPCS: 99214

== ENCOUNTER → 2024-07-27 13:19 | Outpatient (BNV) | payer OTHER, SELFPAY | PROVIDERS: Visit Provider Radiology Diagnostic Radiology | DX: M23.612 Other spontaneous disruption of anterior cruciate ligament of left knee (principal); S83.212A Bucket-handle tear of medial meniscus, current injury, left knee, initial encounter | CPT/HCPCS: 73721 ==

== ENCOUNTER 2024-07-27 13:20 | Outpatient (REF) | payer OTHER, SELFPAY ==
--- NOTE | ~2024-07-27 | MR_ITS ---
EXAMINATION: MR KNEE WITHOUT CONTRAST, LEFT CLINICAL INFORMATION: Old injury, pain and instability. COMPARISON: MRI left knee 10/18/2021. TECHNIQUE: MRI of the knee without contrast was performed using routine sequences on a high-field scanner. FINDINGS: MENISCI: Medial Meniscus: Bucket-handle tear of the posterior horn with flipped fragment into the intercondylar notch. Anterior horn and body appear intact. Lateral Meniscus: Intact and normal in signal. LIGAMENTS: Anterior Cruciate: Completely torn. This appears chronic. Posterior Cruciate: Intact and normal in signal. Medial Collateral: Intact and normal in signal. Lateral Collateral Complex: The biceps femoris tendon, conjoined tendon, fibular collateral ligament, and popliteus tendon appear intact and normal in signal. Mild thickening of the superior fibular collateral ligament may be on the basis of old injury. Arcuate Ligament: Intact and normal in signal. EXTENSOR MECHANISM: Intact and normal in signal. No abnormalities. Hoffa's fat pad is normal in signal. PATELLAR RETINACULUM: Intact and normal in signal bilaterally. The medial patellofemoral ligament is intact. BONE: No bony signal abnormalities identified. No regions of subchondral bone plate edema. JOINTS/CARTILAGE: Medial Compartment: Normal. No cartilaginous defects. Lateral Compartment: Normal. No cartilaginous defects. Patellofemoral Compartment: Normal. No cartilaginous defects. JOINT FLUID AND BURSAE: Normal joint fluid. No bursal abnormalities. OTHER: The popliteal fossa is normal in signal. There is no popliteal fossa cyst. The musculature is normal in signal. MR/MR knee LT wo con IMPRESSION: 1. Chronic completely torn ACL. 2. Bucket-handle tear of the posterior horn of the medial meniscus with flipped fragment into the intercondylar notch. 3. Intact lateral meniscus. 4. Intact collateral ligaments and extensor mechanism. Electronically signed by: Alex Saucedo MD 07/28/2024 11:01 AM EDT
--- OUTSIDE RECORDS SUMMARY | 2024-07-27 15:51 | XMS_ITS | Encounter Summary ---
Author Organization [facility] Address [address] [place] [address] Phone Care Team Providers Care Investigative Writer Name Role Phone Lucy Nava MD Primary Care Provider Encounter Details Date Type Department Care Team (Late st Contact Info) Description 07/30/[address] [facility] [place] Family Medicine [address] [place] [address] Family Medicine, Physician [address] [place], [place] [phone] Social History Tobacco Use Types Packs/Day Years [...] on filedocumented in this encounter Care Teams Investigative Writer Relationship Specialty Start Date End Date Lucy Nava MD 150 [facility] [place] [address] PCP - General 11/21/16 07/21/22 documented as of this encounter
--- OUTSIDE RECORDS SUMMARY | 2024-07-27 15:51 | XMS_ITS | Encounter Summary ---
Author Organization [facility] Address [address] [place] [address] Phone Care Team Providers Care Game Master Name Role Phone Lucy Nava MD Primary Care Provider Encounter Details Date Type Department Care Team (Late st Contact Info) Description 07/29/2012 Documentation [facility] [place] Family Medicine [address] [place] [address] Family Medicine, Physician [address] [place], [place] [phone] Social History Tobacco Use Types Packs/Day Years [...] on filedocumented in this encounter Care Teams Game Master Relationship Specialty Start Date End Date Lucy Nava MD 150 [place] [address] PCP - General 11/21/16 07/21/22 documented as of this encounter
--- OUTSIDE RECORDS SUMMARY | 2024-07-27 15:51 | XMS_ITS | Clinical Summary ---
Author Organization [facility] it Address [address] [place] [address] Care Team Providers Care Sports Centre Manager Name Role Phone ToryLydia miller Primary Care [...] ap Smear 12/07/2020 12/07/2017, 12/07/2017 COVID-19 Vaccine (2023-2 5 season) 2023 Influenza Vaccine (Season Ended) 2024 01/04/2018 DTaP,Tdap,and Td Vaccines (2 - Td [...] age to complete this topic Meningococcal B Vaccine Aged Out No l onger eligible based on patient's age to complete [...] RESULTING AGENCY - 12/10/2017 10:37 AM EDT [id number] RESULTS OF GEN-PROBE APTIMA COMBO 2 ASSAY [...] Recently Relevant to Health Maintenance Care Teams Sports Centre Manager Relationship Specialty Start Date End Date Lydia Fuentes DO PCP - General Internal Medicine 07/07/18
--- OUTSIDE RECORDS SUMMARY | 2024-07-27 15:51 | XMS_ITS | Clinical Summary ---
Author Organization [employer] Address [address] [place] [address] [address] [place] [address] Care Team Providers Care Adult Parole Officer Name Role Phone Unavailable Primary Care Provider [...] patient's age to complete this topic Insurance [facility]
--- OUTSIDE RECORDS SUMMARY | 2024-07-27 15:51 | XMS_ITS | Encounter Summary ---
Author Organization [facility] Address [address] [place] [address] Phone Care Team Providers Care Electrical Automation Engineer Name Role Phone Lucy Nava MD Primary Care Provider Encounter Details Date Type Department Care Team (Late st Contact Info) Description 04/17/2011 Documentation [facility] [place] Family Medicine [address] [place] [address] Family Medicine, Physician [address] [place], [place] [phone] Social History Tobacco Use Types Packs/Day Years [...] on filedocumented in this encounter Care Teams Electrical Automation Engineer Relationship Specialty Start Date End Date Lucy Nava MD 150 [facility] [place] [address] PCP - General 11/21/16 07/21/22 documented as of this encounter
--- OUTSIDE RECORDS SUMMARY | 2024-07-27 15:51 | XMS_ITS | Clinical Summary ---
Author Organization [facility] Address [address] [place] [address] Phone Care Team Providers Care Drying Room Operator Name Role Phone Unavailable Primary Care Provider [...] complete this topic Procedures * Due to [place] [employer] law, this organization might not be sharing sensitive test results. Procedure Name Priority Date/Time Associated Diagnosis Comments CHLAMYDIA AND GONORRHEA, AMPLIFIED Routine 02/22/2015 2:14 PM EST from Last 3 Months or Most Recently Relevant to Health Maintenance Results * Due to [place] state law, this organization might not be sharing sensitive test results. * Chlamydia and Gonorrhoea, Amplified (02/22/2015 2:14 PM EST) URINE CHLAMYDIA AMP PROBE NEGATIVE [facility] Comment: No Chlamydia Trachomatis RNA detected in this patient's sample (REFERENCE RANGE/NORMAL VALUE: NOT DETECTED) URINE GC AMP PROBE NEGATIVE [facility] Comment: No Neisseria Gonorrhoeae RNA detected in this patient's sample (REFERENCE RANGE/NORMAL VALUE: NOT DETECTED) NOTE: This test uses bottle sorter-mediated amplification method to detect rRNA from C.Trachomatis [...] without risk of sexual abuse. Consult the [facility] if needed. Contact phone number . Therapeutic failure or success cannot be determined with the Aptima Combo2 assay since nucleic acid may persist following appropriate antimicrobial therapy. The Centers for Disease Control and Prevention (CDC) recommends confirmatory retesting using culture or a different nucleic acid amplification test when positive results occur, if indicated. Testing performed or reported by [facility], a Service of [facility], [address] [place] [address] Ant Banegas MD, PhD, Principal Mechanical Engineer 02/22/2015 2:14 PM EST Narrative [facility] - 02/22/2015 2:14 PM EST URINE CHLAMYDIA GC AMP PROBE us Luciana Marsh NP LAB MICROBIOLOGY - GENERAL ORDER ALE Final Result [facility] [address] [place] [address], from Last 3 Months or Most Recently Relevant to Health Maintenance
--- OUTSIDE RECORDS SUMMARY | 2024-07-27 15:51 | XMS_ITS | Encounter Summary ---
Author Organization [facility] Address [address] [place] [address] Phone Care Team Providers Care Application Performance Engineer Name Role Phone Lucy Nava MD Primary Care Provider Encounter Details Date Type Department Care Team (Late st Contact Info) Description 11/27/2016 Conversion Encounter [facility] [place] [address] [place] [address] Social History Tobacco Use Types Packs/Day Years [...] on filedocumented in this encounter Care Teams Application Performance Engineer Relationship Specialty Start Date End Date Lucy Nava MD [address] [place] [address] PCP - General 11/21/16 07/21/22 documented as of this encounter
== END 2024-07-27 13:21 | disposition home or self-care (01) ==
LOC: HO.MRI 13:20
PROVIDERS: Visit Provider Orthopaedic Surgery
DX: S83.512A Sprain of anterior cruciate ligament of left knee, initial encounter (principal)
CPT/HCPCS: 73721

== ENCOUNTER 2024-09-01 09:19 | Outpatient (AMB) | payer OTHER, SELFPAY ==
--- NOTE | 2024-09-01 09:33 | MHC.OFFVIS ---
Intake Visit Reasons: Preop LT knee ACL/arthroscopy 09/07/24 NE Intake Note: Lorena is a 28 year old female who presents today for pre op appointment for her LT knee ACL/arthroscopy 09/07/24 NE. Patient was given pain management form to sign. Allergies No Known Allergies Allergy (Verified 09/01/24 09:35) HPI HPI Preop LT knee ACL/arthroscopy 09/07/24 NE: Details: Ms. Gautam this is a 28-year-old female who presents to the office today for her preoperative history and physical examination pending left knee ACL reconstruction scheduled for 09/07/[address] Jorge. Patient has no medical history. Does not have any allergies to any medications. Does not take any at home medications. 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 Review of Systems Const All systems reviewed & are unremarkable except as noted in HPI and below Physical Exam Const General: cooperative, healthy appearing, comfortable, no acute distress, well developed, alert and awake Orientation/consciousness: patient oriented x3 HEENT Head: Yes normal to inspection, Yes normocephalic and Yes atraumatic Eyes General: appearance normal, both eyes and all related structures Neck Neck: Yes normal visual inspection and Yes no lymphadenopathy Resp Effort & Inspection: normal respiratory effort and able to speak in complete sentences Cardio Rate: regular rate Peripheral pulses: Peripheral pulses 2+ throughout GI Inspection: Yes normal to inspection Palpation (GI): Soft to palpation Skin General skin exam: no rashes or lesions noted Neuro General: patient oriented x3 Extrem Other: Left knee with 2+ Margie's/anterior drawer Tenderness to palpation medial joint Line positive medial Flaco's Psych Mental Status: mental status grossly normal Assessment & Plan Assessment & Plan (1) ACL tear: Code(s): S83.519A - Sprain of anterior cruciate ligament of unspecified knee, initial encounter Category: Medical Plan Ms. Lotus apple is a 28-year-old female who presents to the office today for her preoperative history and physical examination pending left knee ACL reconstruction scheduled for 09/07/[address] Jorge. Patient has no medical history. Does not have any allergies to any medications. Does not take any at home medications. I discussed in detail the procedure and what to expect pre and post operatively. We discussed the risks, benefits and alternatives to the surgery as well as the rehabilitation course. The risks; which include, but are not limited to infection, bleeding, nerve injury, ongoing pain, swelling, and stiffness, perioperative risk of injury to bones and soft tissues, and blood clots. Post operative medications were sent to the pharmacy, Percocet and MS Contin, while in the office today. The patient was instructed that he/she should obtain the prescription prior to surgery but should not consume until after the procedure; as these should only be taken for postoperative pain management. Should the patient take these medications before surgery, a refill will not be sent to the pharmacy until their scheduled refill date. oxycodone-acetaminophen 5-325 mg (Percocet) PO Q4-6H PRN, quantity 42 tabs for 7 days and morphine ER 15 mg (MS Contin) PO Q12H PRN, quantity 6 tabs for 3 days Additionally, physical therapy has also ordered at this time. And the patient was fit for an ACL brace off the shelf. I?ve answered all questions and with their understanding they have consented to move forward with left knee ACL reconstruction with Dr. Jorge. MRI Orders: Orders PT Evaluation and Treatment Today Z98.890 - Other specified postprocedural states Medications: New oxycodone-acetaminophen 5-325 mg Partial Fill upon patient request. 1 tab PO Q4-6H 7 days PRN 42 tabs 0RF pain morphine ER (MS Contin) Partial Fill upon patient request. 15 mg PO Q12H 3 days 6 tabs 0RF Coding Level of Care Code Global (52564) Diagnoses ACL tear S83.519A
--- OUTSIDE RECORDS SUMMARY | 2024-09-01 09:33 | XMS_ITS | Encounter Summary ---
Author Organization [facility] Address [address] [place] [address] Phone Care Team Providers Care Munitions Worker Name Role Phone Lucy Nava MD Primary Care Provider [phone] Encounter Details Date Type Department Care Team (Late st Contact Info) Description 07/30/2012 Documentation [facility] [place] Family Medicine [address] [place] [address] Family Medicine, Physician [address] [place], [place] [phone] Social History Tobacco Use Types Packs/Day Years [...] on filedocumented in this encounter Care Teams Munitions Worker Relationship Specialty Start Date End Date Lucy Nava MD 150 [facility] [place] [address] PCP - General 11/21/16 07/21/22 documented as of this encounter
--- OUTSIDE RECORDS SUMMARY | 2024-09-01 09:33 | XMS_ITS | Encounter Summary ---
Author Organization [facility] Address [address] [place] [address] Phone Care Team Providers Care Navigation Teacher Name Role Phone Lucy Nava MD Primary Care Provider Encounter Details Date Type Department Care Team (Late st Contact Info) Description 04/17/2011 Documentation [facility] [place] [address] [place] [address] Family Medicine, Physician [address] [place], [place] [phone] Social History Tobacco Use Types Packs/Day Years [...] on filedocumented in this encounter Care Teams Navigation Teacher Relationship Specialty Start Date End Date Lucy Nava MD 150 [facility] [place] [address] PCP - General 11/21/16 07/21/22 documented as of this encounter
--- OUTSIDE RECORDS SUMMARY | 2024-09-01 09:33 | XMS_ITS | Encounter Summary ---
Author Organization [facility] Address [address] [place] [address] Phone Care Team Providers Care Test Case Developer Name Role Phone Lucy Nava MD Primary Care Provider Encounter Details Date Type Department Care Team (Late st Contact Info) Description 11/27/2016 Conversion Encounter [facility] [place] [address] [place] [address] Social History Tobacco Use Types Packs/Day Years [...] on filedocumented in this encounter Care Teams Test Case Developer Relationship Specialty Start Date End Date Lucy Nava MD [address] [place] [address] PCP - General 11/21/16 07/21/22 documented as of this encounter
--- OUTSIDE RECORDS SUMMARY | 2024-09-01 09:33 | XMS_ITS | Clinical Summary ---
Author Organization [facility] ity Address [address] [place] [address] Care Team Providers Care Inner Tube Tuber Machine Operator Name Role Phone ToryLydia miller Primary Care [...] RESULTING AGENCY - 12/10/2017 10:37 AM EDT [id number] RESULTS OF GEN-PROBE APTIMA COMBO 2 ASSAY [...] Recently Relevant to Health Maintenance Care Teams Inner Tube Tuber Machine Operator Relationship Specialty Start Date End Date Lydia Fuentes DO PCP - General Internal Medicine 07/07/18
--- OUTSIDE RECORDS SUMMARY | 2024-09-01 09:33 | XMS_ITS | Clinical Summary ---
Author Organization [employer] Address [address] [facility] [address] [place] [address] Care Team Providers Care Divinity Professor Name Role Phone Unavailable Primary Care Provider Unavailabl e Immunizations Immunization Administration Dates Next Due DTP 08/11/1995,06/10/1995,03/12/1995 DTaP, [...] 1994 HIV Screening 1994 SDOH Screening 1994 Disability Screening 1994 Alcohol/Substance Use Screening 2006 Tobacco [...] patient's age to complete this topic Insurance [facility]
--- OUTSIDE RECORDS SUMMARY | 2024-09-01 09:33 | XMS_ITS | Clinical Summary ---
Author Organization [facility] Address [address] [place] [address] Phone Care Team Providers Care Carnallite Plant Operator Name Role Phone Unavailable Primary Care [...] complete this topic Procedures * Due to [place] Scint-[employer] law, this organization might not be sharing sensitive test results. Procedure Name Priority Date/Time Associated Diagnosis Comments CHLAMYDIA AND GONORRHEA, AMPLIFIED Routine 02/22/2015 2:14 PM EST from Last 3 Months or Most Recently Relevant to Health Maintenance Results * Due to [place] state law, this organization might not be sharing sensitive test results. * Chlamydia and Gonorrhoea, Amplified (02/22/2015 2:14 PM EST) URINE CHLAMYDIA AMP PROBE NEGATIVE [facility] Comment: No Chlamydia Trachomatis RNA detected in this patient's sample (REFERENCE RANGE/NORMAL VALUE: NOT DETECTED) URINE GC AMP PROBE NEGATIVE [facility] Comment: No Neisseria Gonorrhoeae RNA detected in this patient's sample (REFERENCE RANGE/NORMAL VALUE: NOT DETECTED) NOTE: This test uses copy and print associate-mediated amplification method to detect rRNA from C.Trachomatis [...] without risk of sexual abuse. Consult the [facility] if needed. Contact phone number . Therapeutic failure or success cannot be determined with the Aptima Combo2 assay since nucleic acid may persist following appropriate antimicrobial therapy. The Centers for Disease Control and Prevention (CDC) recommends confirmatory retesting using culture or a different nucleic acid amplification test when positive results occur, if indicated. Testing performed or reported by [facility], a Service of [facility], [address] [place] [address] Ant Banegas MD, PhD, Word Processor Operator 02/22/2015 2:14 PM EST Narrative [facility] - 02/22/2015 2:14 PM EST URINE CHLAMYDIA GC AMP PROBE us Luciana Marsh NP LAB MICROBIOLOGY - GENERAL ORDER ALE Final Result [facility] [address] [place] [address], from Last 3 Months or Most Recently Relevant to Health Maintenance
--- OUTSIDE RECORDS SUMMARY | 2024-09-01 09:33 | XMS_ITS | Encounter Summary ---
Author Organization [facility] Address [address] [place] [phone] Phone Care Team Providers Care Bmw Service Technician Name Role Phone Lucy Nava MD Primary Care Provider Encounter Details Date Type Department Care Team (Late st Contact Info) Description 07/29/2012 Documentation [facility] Family Medicine [address] [place] [address] Family Medicine, Physician [address] [place], [place] [id number] Social History Tobacco Use Types Packs/Day Years [...] on filedocumented in this encounter Care Teams Bmw Service Technician Relationship Specialty Start Date End Date Lucy Nava MD [address] [facility] [place] [address] PCP - General 11/21/16 07/21/22 documented as of this encounter
== END 2024-09-01 10:07 | disposition home or self-care (01) ==
LOC: HO.HOS 09:20
PROVIDERS: Visit Provider Physician Assistant
DX: S83.512A Sprain of anterior cruciate ligament of left knee, initial encounter (principal)
CPT/HCPCS: 99024

== ENCOUNTER → 2024-09-01 09:19 | Outpatient (BNVA) | payer OTHER, SELFPAY | PROVIDERS: Visit Provider Physician Assistant ==

== ENCOUNTER 2024-09-07 06:01 | Day surgery (SDC) | payer OTHER, SELFPAY ==
--- OUTSIDE RECORDS SUMMARY | 2024-07-18 13:39 | XMS_ITS | Encounter Summary ---
Author Organization [facility] Address [address] [place] [address] Phone Care Team Providers Care Weld Technician Name Role Phone Lucy Nava MD Primary Care Provider [phone] Encounter Details Date Type Department Care Team (Late st Contact Info) Description 07/29/2012 Documentation [facility] [place] Family Medicine [address] [place] [address] Family Medicine, Physician [address] [place], [place] [phone] Social History Tobacco Use Types Packs/Day Years [...] on filedocumented in this encounter Care Teams Weld Technician Relationship Specialty Start Date End Date Lucy Nava MD 150 [facility] [place] [address] PCP - General 11/21/16 07/21/22 documented as of this encounter
--- OUTSIDE RECORDS SUMMARY | 2024-07-18 13:39 | XMS_ITS | Encounter Summary ---
Author Organization [facility] Address [address] [place] [address] Phone Care Team Providers Care Dairy Chemist Name Role Phone Lucy Nava MD Primary Care Provider [phone] Encounter Details Date Type Department Care Team (Late st Contact Info) Description 07/30/2012 Documentation [facility] [place] Family Medicine [address] [place] [address] Family Medicine, Physician [address] [place], [place] [phone] Social History Tobacco Use Types Packs/Day Years [...] on filedocumented in this encounter Care Teams Dairy Chemist Relationship Specialty Start Date End Date Lucy Nava MD 150 [place] [address] PCP - General 11/21/16 07/21/22 documented as of this encounter
--- OUTSIDE RECORDS SUMMARY | 2024-07-18 13:39 | XMS_ITS | Clinical Summary ---
Author Organization [facility] Address [address] [place] [address] Phone Care Team Providers Care Medical Center Representative Name Role Phone Unavailable Primary Care Provider [...] complete this topic Procedures * Due to [place] [employer] law, this organization might not be sharing sensitive test results. Procedure Name Priority Date/Time Associated Diagnosis Comments CHLAMYDIA AND GONORRHEA, AMPLIFIED Routine 02/22/2015 2:14 PM EST from Last 3 Months or Most Recently Relevant to Health Maintenance Results * Due to [place] state law, this organization might not be sharing sensitive test results. * Chlamydia and Gonorrhoea, Amplified (02/22/2015 2:14 PM EST) URINE CHLAMYDIA AMP PROBE NEGATIVE [facility] Comment: No Chlamydia Trachomatis RNA detected in this patient's sample (REFERENCE RANGE/NORMAL VALUE: NOT DETECTED) URINE GC AMP PROBE NEGATIVE [facility] Comment: No Neisseria Gonorrhoeae RNA detected in this patient's sample (REFERENCE RANGE/NORMAL VALUE: NOT DETECTED) NOTE: This test uses executive vice president and chief financial officer-mediated amplification method to detect rRNA from C.Trachomatis [...] if indicated. Testing performed or reported by [facility], a Service of [facility], [address] [place] [address] Ant Banegas MD, PhD, Mold Dresser 02/22/2015 2:14 PM EST Narrative [facility] - 02/22/2015 2:14 PM EST URINE CHLAMYDIA GC AMP PROBE us Luciana Marsh NP LAB MICROBIOLOGY - GENERAL ORDER ALE Final Result [facility] [address] [place] [address], from Last 3 Months or Most Recently Relevant to Health Maintenance
--- OUTSIDE RECORDS SUMMARY | 2024-07-18 13:39 | XMS_ITS | Encounter Summary ---
Author Organization [facility] Address [address] [place] [address] Phone Care Team Providers Care It Service Technician Name Role Phone Lucy Nava MD Primary Care Provider Encounter Details Date Type Department Care Team (Late st Contact Info) Description 11/27/2016 Conversion Encounter [facility] [place] [address] [place] [address] Social History Tobacco Use Types Packs/Day Years [...] on filedocumented in this encounter Care Teams It Service Technician Relationship Specialty Start Date End Date Lucy Nava MD [address] [place] [address] PCP - General 11/21/16 07/21/22 documented as of this encounter
--- OUTSIDE RECORDS SUMMARY | 2024-07-18 13:39 | XMS_ITS | Encounter Summary ---
Author Organization [facility] Address [address] [place] [address] Phone Care Team Providers Care Hand Kiss Setter Name Role Phone Lucy Nava MD Primary Care Provider [phone] Encounter Details Date Type Department Care Team (Late st Contact Info) Description 04/17/2011 Documentation [facility] [place] Family Medicine [address] [place] [address] Family Medicine, Physician [address] [place], [place] [phone] Social History Tobacco Use Types Packs/Day Years [...] on filedocumented in this encounter Care Teams Hand Kiss Setter Relationship Specialty Start Date End Date Lucy Nava MD 150 [facility] [place] [address] PCP - General 11/21/16 07/21/22 documented as of this encounter
--- OUTSIDE RECORDS SUMMARY | 2024-07-18 13:39 | XMS_ITS | Clinical Summary ---
Author Organization [employer] Address [address] [place] [address] [address] [place] [address] Care Team Providers Care Lean Six Sigma Black Belt Name Role Phone Unavailable Primary Care Provider [...] patient's age to complete this topic Insurance [facility]
--- OUTSIDE RECORDS SUMMARY | 2024-07-18 13:39 | XMS_ITS | Clinical Summary ---
Author Organization [facility] it Address [address] [place] [address] Care Team Providers Care Diesel Power Mechanic Name Role Phone ToryLydia miller Primary Care [...] RESULTING AGENCY - 12/10/2017 10:37 AM EDT [id number] RESULTS OF GEN-PROBE APTIMA COMBO 2 ASSAY CHLAMYDIA: ?NEGATIVE N. GONORRHOEAE: ? NEGATIVE RAJENDRA JURAEZ M.D., PATHOLOGIST (CASE ELECTRONICALLY SIGNED 12 10 2017) CLINICAL INFORMATION: Z12.4, Z34.81 Z34.81 ENCOUNTER FOR SUPERVISION OF OTHER NORMAL , FIRST TRIMESTER SOURCE: THINPREP PAP FOR CT/GC GROSS DESCRIPTION: THINPREP VIAL RECEIVED. PHYSICIANS LAUREEN MONTOYA/#/ Laureen Montoya CN LAB CYTOLOGY ORDERABLES Final Result [facility] RESULTING AGENCY from Last 3 Months or Most Recently Relevant to Health Maintenance Care Teams Diesel Power Mechanic Relationship Specialty Start Date End Date Lydia Fuentes DO PCP - General Internal Medicine 07/07/18
--- NOTE | 2024-09-06 09:01 | P.CONAN_ITS ---
Documented by User: Alexia Lopez NP 09/06/24 09:02 HPI - Anesthesia Eval Consult details Narrative: 28yo F for Left Knee Arthroscopy, ACL reconstruction with Allograft PMFSH Active Problems Active Problems: All Active Problems Status post reconstruction of anterior cruciate ligament (Acute) Locking of left knee (Acute) Left ACL tear (Acute) ACL tear (Acute) Internal derangement of left knee (Acute) Abnormal uterine bleeding (Acute) Family planning (Acute) Ectopic (Acute) IUD failure, (Acute) First trimester bleeding (Acute) Past Medical History Medical History ACL tear Hx of ectopic Family History Family history of problems with anesthesia: No Surgical History Surgical History H/O section History of Problems with Anesthesia: No Social History Social History Alcohol intake: never Patient Tobacco Use Status: Never used Tobacco e-Cigarette/Vaping Use: Never Used Use of substances other than those prescribed or required for medical reasons: No Have you been hit, kicked, punched, or otherwise hurt by someone within the past year? 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 Allergies Allergy/AdvReac Type Severity Reaction Status Date / Time No Known Allergies Allergy Verified 09/07/24 06:18 Exam Height,Weight and Vital Signs: Height 5 ft 6 in Assessment and Plan Assessment Anesthesia Assessment: Chart Reviewed Final Anesthetic Review Family History of Problems with Anesthesia: No History of Problems with Anesthesia: No Documented by User: Ok Gallegos MD 09/07/24 07:09 [facility] Past Medical History Medical History ACL tear Hx of ectopic Functional capacity: independent ambulation Patient : No Surgical History Surgical History H/O section Social History Social History Alcohol intake: never Patient Tobacco Use Status: Never used Tobacco e-Cigarette/Vaping Use: Never Used Use of substances other than those prescribed or required for medical reasons: No Have you been hit, kicked, punched, or otherwise hurt by someone within the past year? 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 and Plan Disposition: Standard PACU
[2024-09-07] VITALS (11 sets, daily range): BP systolic 102–128; BP diastolic 54–87; PULSE 65–121; RESP 14–22; TEMP 36.6–37.3; O2SAT 96–99; BMI 28.8
[2024-09-07 06:22] LABS: UPreg QC Valid YES; Urine Pregnancy NEGATIVE (NEGATIVE)
[2024-09-07] MEDS: Lactated Ringers 1,000 ML 100 ML IVCONT (06:33)
--- NOTE | 2024-09-07 07:09 | MHC.SHP ---
Pre-Procedural Eval Section A - 24 Hr Update-Section A only Date of Service: 09/07/24 The patient is an INPATIENT: No Changes since office visit: No Cold of Flu in the past 2 weeks, No New Medical Problems, No Changes in Medication and No Patient answered all questions The patient has been examined within 24 hours of the surgical procedure. The History & Physical has been completed within 30 days and I have reviewed it.: Yes Section B - Complete if H&P > 30 days Chief Complaint: Sprain of anterior cruciate ligament of left knee Allergies: Allergies Allergy/AdvReac Type Severity Reaction Status Date / Time No Known Allergies Allergy Verified 09/07/24 06:18 Plan I have reviewed the history and physical and performed a pertinent physical examination on my patient. No changes have occurred unless specified. Time Spent With Patient Time: Total time managing care of this patient today ____ minutes.
[2024-09-07] MEDS: ondansetron HCL 4 MG/2 ML VIAL IVPUSH (09:15)
[2024-09-07] MEDS: fentaNYL citrate/PF 100 MCG/2 ML VIAL 50 MCG IVPUSH ×4 (09:20→09:40)
[2024-09-07] MEDS: oxyCODONE HCl Immed Release 5 MG TABLET PO (09:47)
--- NOTE | 2024-09-07 09:54 | PM.OP ---
Brief Operative Note Date of Service: 09/07/24 Pre-op diagnosis: Left ACL tear and left MMT Post-op diagnosis: same Procedure: Left ACL reconstruction with allograft and partial medial meniscectomy Implants: Plasencia and Nephew endobutton and 10x25 tibial interference screw Surgeon: Damián Jorge MD Anesthesia: GETA and regional Was an Marketing Effectiveness Manager used for this Procedure?: Yes Marketing Effectiveness Manager: Anabella Acharya Estimated blood loss (mL): 20 Tourniquet time (min): 45 IV fluids (mL): 1,000 Pathology: none sent Condition: stable Disposition: PACU
--- NOTE | 2024-09-07 10:23 | P.OP_ITS ---
Operative Note Operative Note Date of Service: 09/07/24 Narrative: Date of Service: 09/07/24 Pre-op diagnosis: Left ACL tear and left MMT Post-op diagnosis: same Procedure: Left ACL reconstruction with allograft and partial medial meniscectomy Implants: Plasencia and Nephew endobutton and 10x25 tibial interference screw Surgeon: Damián Jorge MD Anesthesia: GETA and regional Was an Data Migration Consultant used for this Procedure?: Yes Data Migration Consultant: Anabella Acharya Estimated blood loss (mL): 20 Tourniquet time (min): 45 IV fluids (mL): 1,000 Pathology: none sent Condition: stable Disposition: PACU Procedure in detail: Patient was brought to the operating room placed supine on the arthroscopic table and prepped and draped in standard sterile fashion. A time-out was called to identify proper site proper procedure proper surgeon and IV antibiotics per weight were administered. Under anesthesia she had a + pivot shift. I began by exsanguinating the limb and insufflating tourniquet to 300 mm Hg. Then made a standard anterolateral stab incision. The knee was insufflated with water and 30 degree arthroscope was placed. There was normal cartialge surfaces of the patella and overall the suprapatellar pouch and the gutters were clean. I descended into the medial compartment where I made my far medial portal under direct visualization. There was a small bucket handle medial meniscus tear. THis was a superior flap type of bucket handle tear. The inferior flap was stable and intact so the thin superior flp bucket handle tear was flimsy and not reapirable. This was debrided with a shaver. The root was intact and there were no cartialge changes of the MFC. I then examined the notch where there was a + empty wall sign and an intact PCL. I debrided the stump and acl footprint and performed a limited notchplasty. I then, through a far AM portal and a 7mm behind the back guide, drilled a k-wire through the LFC with the knee in hyper- flexion. I measured the tunnel as a 34 and then after sizing the allograft on the back table drilled a 26 mm tunnel with a 9.5 mm reamer. The final 8 mm was drilled with a 4.5 reamer. I then pulled a suture through the femoral tunnel and turned my attention to the tibia. I did examine the femoral tunnel and was satisfied with the posterior wall and its location low and medial at the anatomic footprint. I placed my tibial drill guide in 55 deg and, through a anteromedial inc just lateral to the tibial tubercle placed a k-wire into the notch exiting just medial to the anterior horn insertion of the lateral meniscus. I then over-reamed with a 10mm reamer. I cleaned the tunnels up with a shaver. On the back table I whip-stitched the allograft to fit through a 9.5mm aperture and attached the femoral button to the looped end. I placed the graft on 15lbs of tension for 10 minutes. I then passed the allograft through the tibial tunnel and femoral tunnel and flipped the button. I cycled the knee about 10-15 cycles and then placed a tibial interference screw with the knee in hyper- extension while holding the graft taught. Once I was satisfied that the interference screw was buried I examined the ACL and the medial meniscus repair. The repair was stable and the ACL was not impinging and there was a negative pivot shift. I then removed all instrumentation and closed the incisions with nylon. Patient was then placed in sterile dressings and a hinged knee brace. She was then extubated brought recovery room stable condition. There were no known complications.
--- NOTE | 2024-09-07 10:39 | PC.NURSE ---
PATIENT WAS GIVEN HER PRESCRIPTIONS PRIOR TO TODAY BY DR. DUNN.
== END 2024-09-07 10:40 | disposition home or self-care (01) ==
LOC: HO.SSS 06:01
PROVIDERS: Nurse Practitioner; Visit Provider Orthopaedic Surgery
PROC: (CPT 29870; principal; 2024-09-07 07:30)
PROC: (CPT 27428; 2024-09-07 07:30)
DX: S83.512A Sprain of anterior cruciate ligament of left knee, initial encounter (principal); S83.212A Bucket-handle tear of medial meniscus, current injury, left knee, initial encounter; X58.XXXA Exposure to other specified factors, initial encounter; Y93.9 Activity, unspecified; Y92.9 Unspecified place or not applicable; Y99.9 Unspecified external cause status
CPT/HCPCS: 29888; 29881; 81025; C1713; C1762; J0131; J0171; J0665; J0690; J1100; J2003; J2250; J2405; J2704; J3010

== ENCOUNTER → 2024-09-07 06:01 | Outpatient (BNV) | payer OTHER, SELFPAY | PROVIDERS: Visit Provider Orthopaedic Surgery | DX: S83.512A Sprain of anterior cruciate ligament of left knee, initial encounter (principal); S83.212A Bucket-handle tear of medial meniscus, current injury, left knee, initial encounter | CPT/HCPCS: 29881; 29888 ==

== ENCOUNTER 2024-09-15 08:23 | Outpatient (REF) | payer OTHER, SELFPAY ==
--- NOTE | ~2024-09-15 | XR_ITS ---
EXAMINATION: XR KNEE 1-2 VIEWS LEFT HISTORY: M25.569 - Pain in unspecified knee COMPARISON: Comparison is made with the prior examination dated 02/12/2023. FINDINGS: AP and lateral views of the left knee are submitted. Osseous mineralization is normal. Findings of ACL repair are noted with tunnels in the distal femur and proximal tibia. There is no fracture or dislocation. The joint spaces are preserved. There is a moderate joint effusion. XR/XR knee LT 2V IMPRESSION: Status post ACL repair. Moderate joint effusion. Electronically signed by: Librado Shah MD 09/15/2024 10:53 AM EDT
--- OUTSIDE RECORDS SUMMARY | 2024-09-15 08:36 | XMS_ITS | Clinical Summary ---
Author Organization [facility] it Address [address] [place] [address] Care Team Providers Care Administrative Technician Name Role Phone ToryLydia miller Primary [...] RESULTING AGENCY - 12/10/2017 10:37 AM EDT [id number] RESULTS OF GEN-PROBE APTIMA COMBO 2 ASSAY [...] Recently Relevant to Health Maintenance Care Teams Administrative Technician Relationship Specialty Start Date End Date Lydia Fuentes DO PCP - General Internal Medicine 07/07/18
== END 2024-09-15 08:24 | disposition home or self-care (01) ==
LOC: HO.HOSX 08:23
PROVIDERS: Visit Provider Physician Assistant
DX: M25.562 Pain in left knee (principal)
CPT/HCPCS: 73560

== ENCOUNTER 2024-09-15 10:08 | Outpatient (AMB) | payer OTHER, SELFPAY ==
--- NOTE | 2024-09-15 10:40 | MHC.OFFVIS ---
Intake Visit Reasons: PO LT knee ACL/arthroscopy 09/07/24 NE Intake Note: Lorena is a 28 year old female who presents today for a post op appointment s/p Left ACL reconstruction with allograft and partial medial meniscectomy 09/07/24 NE. Patient reports she is having tolerable pain. She states that her knee feels better than before. Allergies No Known Allergies Allergy (Verified 09/15/24 10:50) HPI HPI PO LT knee ACL/arthroscopy 09/07/24 NE: Details: Ms. Gautam is a 28-year-old female who presents to the office today status post left ACL reconstruction with partial medial meniscectomy. She presents to the office today in the ACL brace and crutches as instructed. She does report pain although overall the patient is doing very well. She continues to use her cryocuff at home. 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 No surrounding erythema or drainage. No signs of infection. Able to dorsiflex and plantar flex. NVI. Assessment & Plan Assessment & Plan (1) Status post reconstruction of anterior cruciate ligament: Code(s): Z98.890 - Other specified postprocedural states Category: Surgical Plan Ms. Gautam is a 28-year-old female who presents to the office today status post left ACL reconstruction with partial medial meniscectomy. She presents to the office today in the ACL brace and crutches as instructed. She does report pain although overall the patient is doing very well. She continues to use her cryocuff at home. While the office today, sutures are removed and Steri-Strips were applied. The patient does have 1st physical therapy appointment tomorrow she is requesting a print out of the order. I did print her out a physical therapy prescription as well as the ACL protocol that is used for patient's to give to the therapist. I attached my business card if there is any questions. Brace will remain in place for roughly 6 weeks or until quad control allows. She will follow up in [address] Jorge, sooner if needed. X-rays of the left knee which were obtained while in the office today and were reviewed by me, Anabella Acharya PA-C, revealed proper positioning of ACL Endobutton against the lateral femoral condyle. Orders: Orders XR knee LT 2V Today M25.569 - Pain in unspecified knee Coding Level of Care Code Global (20991) Diagnoses Status post reconstruction of anterior cruciate ligament Z98.890
== END 2024-09-15 11:24 | disposition home or self-care (01) ==
LOC: HO.HOS 10:08
PROVIDERS: Visit Provider Physician Assistant
DX: Z98.890 Other specified postprocedural states (principal)
CPT/HCPCS: 99024

== ENCOUNTER → 2024-09-15 10:16 | Outpatient (BNV) | payer OTHER, SELFPAY | PROVIDERS: Visit Provider Radiology Diagnostic Radiology | DX: M25.462 Effusion, left knee (principal) | CPT/HCPCS: 73560 ==

== ENCOUNTER 2024-09-20 12:23 | Outpatient (REF) | payer OTHER, SELFPAY ==
--- NOTE | ~2024-09-20 | US_ITS ---
EXAMINATION: US LOWER EXTREMITY VEINS LIMITED FOLLOW UP LEFT HISTORY: Z98.890 - Other specified postprocedural states, pain COMPARISON: There are no prior studies available for comparison. TECHNIQUE: Duplex and color Doppler sonographic examination of the deep venous system of the left lower extremity was performed. FINDINGS: The common femoral, superficial femoral, and popliteal veins are patent demonstrating normal compressibility, spontaneous flow, and augmentation. There is a normal color and spectral Doppler waveform appearance of the visualized deep venous system above the knee. The posterior tibial and peroneal veins are patent. US/US venous duplex LE LT IMPRESSION: No evidence of acute DVT in the left lower extremity. Electronically signed by: Librado Shah MD 09/20/2024 01:02 PM EDT
--- OUTSIDE RECORDS SUMMARY | 2024-09-20 14:35 | XMS_ITS | Clinical Summary ---
Author Organization [facility] it Address [address] [place] [address] Care Team Providers Care Household Worker Name Role Phone ToryLydia miller Primary Care [...] RESULTING AGENCY - 12/10/2017 10:37 AM EDT [id number] RESULTS OF GEN-PROBE APTIMA COMBO 2 ASSAY [...] Recently Relevant to Health Maintenance Care Teams Household Worker Relationship Specialty Start Date End Date Lydia Fuentes DO PCP - General Internal Medicine 07/07/18
== END 2024-09-20 12:24 | disposition home or self-care (01) ==
LOC: HO.US 12:23
PROVIDERS: Visit Provider Physician Assistant
DX: Z98.890 Other specified postprocedural states (principal); M79.605 Pain in left leg
CPT/HCPCS: 93971

== ENCOUNTER → 2024-09-20 12:31 | Outpatient (BNV) | payer OTHER, SELFPAY | PROVIDERS: Visit Provider Radiology Diagnostic Radiology | DX: M79.662 Pain in left lower leg (principal); Z98.890 Other specified postprocedural states | CPT/HCPCS: 93971 ==

== ENCOUNTER 2024-10-06 14:14 | Outpatient (AMB) | payer OTHER, SELFPAY ==
--- NOTE | 2024-10-06 14:18 | MHC.OFFVIS ---
Intake Visit Reasons: PO LT knee ACL/arthroscopy 09/07/24 NE Intake Note: Lorena is a 28 year old female who presents today for a post op appointment about 4 weeks s/p Left ACL reconstruction with allograft and partial medial meniscectomy 09/07/24 NE. Patient reports that she is doing well she is having some swelling on the lateral asepct of the knee. Patient came in with brace very loose, she states that this is how it has fit since she was fit for it. I adjusted brace Allergies No Known Allergies Allergy (Verified 09/15/24 10:50) HPI HPI PO LT knee ACL/arthroscopy 09/07/24 NE: Details: Lorena is a 28 year old female who presents today for a post op appointment about 4 weeks s/p Left ACL reconstruction with allograft and partial medial meniscectomy 09/07/24 NE. Patient reports that she is doing well she is having some swelling on the lateral aspect of the knee. Patient came in with brace very loose. She has been doing her PT but having some swelling and pain. 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 Quad is firing but not strong. Incisions are clean dry and intact. Mild swelling over the medial knee at the level of the pes anserinus bursa. Stable Margie's. Assessment & Plan Assessment & Plan (1) Status post reconstruction of anterior cruciate ligament: Code(s): Z98.890 - Other specified postprocedural states Category: Surgical Plan: Status post ACL reconstruction doing well. She is only 4 weeks out. Continue PT. Appropriate brace wear instructed. f/u 2 mo Medications: New naproxen (EC-Naprosyn) 500 mg PO BID PRN 60 tabs 0RF pain Coding Level of Care Code Global (77964) Diagnoses Status post reconstruction of anterior cruciate ligament Z98.890
--- OUTSIDE RECORDS SUMMARY | 2024-10-06 17:22 | XMS_ITS | Clinical Summary ---
Author Organization [facility] it Address [address] [place] [address] Care Team Providers Care Manager Risk Management Name Role Phone ToryLydia miller Primary Care [...] RESULTING AGENCY - 12/10/2017 10:37 AM EDT [id number] RESULTS OF GEN-PROBE APTIMA COMBO 2 ASSAY CHLAMYDIA: NEGATIVE N. GONORRHOEAE: NEGATIVE RAJENDRA JUAREZ M.D., PATHOLOGIST (CASE ELECTRONICALLY SIGNED 12 10 2017) CLINICAL INFORMATION: Z12.4, Z34.81 Z34.81 ENCOUNTER FOR SUPERVISION OF OTHER NORMAL , FIRST TRIMESTER SOURCE: THINPREP PAP FOR CT/GC GROSS DESCRIPTION: THINPREP VIAL RECEIVED. PHYSICIANS LAUREEN MONTOYA/#/ Laureen Montoya CNM LAB CYTOLOGY ORDERABLES Final Result HISTORICAL TESTING LAB RESULTING AGENCY from Last 3 Months or Most Recently Relevant to Health Maintenance Care Teams Manager Risk Management Relationship Specialty Start Date End Date Lydia Fuentes DO PCP - General Internal Medicine 07/07/18
== END 2024-10-06 14:41 | disposition home or self-care (01) ==
LOC: HO.HOS 14:14
PROVIDERS: Visit Provider Orthopaedic Surgery
DX: Z98.890 Other specified postprocedural states (principal)
CPT/HCPCS: 99024

== ENCOUNTER 2024-11-09 10:51 | Outpatient (AMB) | payer OTHER, SELFPAY ==
[2024-11-09 11:17] VITALS: BP 140/90; PULSE 87; RESP 18; TEMP 36.4; O2SAT 98; BMI 29.2
--- NOTE | 2024-11-09 11:17 | A.OFFPC_ITS ---
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 Required: No Accompanied by: Self / Same As Patient Allergies No Known Allergies Allergy (Verified 11/09/24 11:28) Medication List - Last Reconciled 11/09/24 by ZACHARIAH Creon naproxen (EC-Naprosyn) 500 mg PO BID PRN Tobacco use date assessed: 11/09/24 Dental Screening Dental Screen Date: 11/09/24 Did you have a dental visit in the last 12 months?: No Did you have a dental problem in the last 6 months where you did not have access to dental care?: No Was dental information given to patient?: Patient has dentist HPI establish care HPI Details Previous PCP: Last visit: Last PE: About years ago Specialist: nina (ACL repair 09/07/24)-sees Dr. Luisito DOSHI: will need a referral due for pap smear--- Past medical history: asthma exercise induced, anxiety Medications: Family HX: htn, cancer lymphoma, esophageal cancer on father's side of family. Mother and father - alcoholism, father bipolar, ocd, mother parents copd, both smokers, Problem: The patient is a 28-year-old female presenting with anxiety and depression management, as well as preventative care needs. The patient reports a history of anxiety and depression, with anxiety progressing to panic attacks. She was previously prescribed Zoloft but discontinued due to side effects and fear of worsening symptoms, given her family history of suicide. She has not been on any medication for anxiety and has not seen a therapist recently, although she had some therapy sessions after her father's . Patient reports that her father struggled from bipolar and she thinks she has a mild case of the characteristics, like she once purchase tickets to two different cruises, knowing that she does not have the money for this. The patient has a history of asthma, which is exercise-induced, and she uses an albuterol inhaler as needed. She reports alcohol use, consuming 6 to 12 white clouds in social settings, and acknowledges that it may be self-medication for anxiety. She also smokes approxi mately one pack of cigarettes every two to three days. The patient experiences intermittent throat discomfort and a sensation of something stuck, which she suspects might be related to gastroesophageal reflux disease (GERD). She denies heartburn but has tried antacids like Tums. Preventative care measures discussed include the need for a Pap smear, as she is due for one. Patient complaints of left upper quadrant pain that is sharp in nature, this happened intermittently and she does not associated this with meals it happens randomly Mild pain to live upper quadrant with palpation on exam. Patient reports that her stools are mostly normal but around every other week she gets dark color stools. [facility] Medical History (Updated 11/10/24 @ 08:06 by ZACHARIAH Ceron) Exercise-induced asthma Heart palpitations Depression Panic attack Anxiety ACL tear Hx of ectopic Surgical History H/O section Family History (Updated 11/10/24 @ 07:45 by ZACHARIAH Ceron) Paternal Grandfather HTN (hypertension) Lymphoma Esophageal cancer Mother Alcoholism OCD (obsessive compulsive disorder) Bipolar 2 disorder Father No problems noted. 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 1. Little interest or pleasure in doing things: several days 2. Feeling down, depressed, or hopeless: several days 3. Trouble falling or staying asleep, or sleeping too much: several days 4. Feeling tired or having little energy: several days 5. Poor appetite or overeating: several days 6. Feeling bad about yourself - or that you are a failure or have let yourself or your family down: several days 7. Trouble concentrating on things, such as reading the newspaper or watching television: several days 8. Moving or speaking so slowly that other people could have noticed. Or the opposite - being so fidgety or restless that you have been moving around a lot more than usual: not at all 9. Thoughts that you would be better off or of hurting yourself in some way: not at all Total score: 7 Source: Developed by Drs. Librado Cantrell, Edwige Zaman, Ananda Tavarez and colleagues, with an educational layla from [employer]. Thrive Questionnaire Date Thrive assessed: 11/09/24 I am a: Patient What is your living situation today?: I have a steady place to live Within the past 12 months, did the food you bought not last and you didn't have the money to get more?: Never true Within the past 12 months, did you worry whether your food would run out before you got money to buy more?: Never true Do you have trouble paying for medicines?: No Do you have trouble getting transportation to medical appointments?: No Do you have trouble paying your heating and electricity bill?: No Do you have trouble taking care of your child, family member or friend?: No Do you have trouble with day-to-day activities such as bathing, preparing meals, shopping, managing finances, etc.?: No Are you currently unemployed and looking for a job?: No Are you interested in more education?: No Please select the resources that you would like help with: None Currently or been in a relationship where the following occur: No concerns reported THRIVE Score: 0 AUDIT C Alcohol Use Questionnaire (AUDIT-C) 1. How often do you have a drink containing alcohol?: 2-3 times a week 2. How many drinks containing alcohol do you have on a typical day when you are drinking?: 5 or 6 3. How often do you have six or more drinks on one occasion?: Monthly Total Score: 7 JACINDA-7 AMB Questionnaire JACINDA-7 Date JACINDA - 7 assessed: 11/09/24 Feeling nervous, anxious, or on edge: 2 = More than half the days Not being able to stop or control worryin = Nearly every day Worrying too much about different things: 3 = Nearly every day Trouble relaxin = Nearly every day Being so restless that it is hard to sit still: 2 = More than half the days Becoming easily annoyed or irritable: 1 = Several days Feeling afraid as if something awful might happen: 3 = Nearly every day Total JACINDA-7 score (0-4 normal; 5-9 mild; 10-14 moderate; 15-21 severe): 17 Source: Developed by Drs. Librado Cantrell, Edwige Zaman, Ananda Tavarez and colleagues, with an educational layla from [employer]. Review of Systems Const Denies headache(s) Eyes Denies loss of vision ENT Reports dysphagia (Feels like something stuck in her throat), Denies vertigo, Denies dizziness, Denies headache(s) and Denies sore throat Card Denies chest pain, Denies leg edema, Denies lightheadedness and Reports palpitations (Intermittently, at times associated with lying on left side) Resp Denies cough, Denies hemoptysis, Denies wheezing and Reports other (Exercise induced shortness of breath) GI Reports abdominal pain (Left upper quadrant), Denies melena, Reports change in stool character (Dark colored stool every other week), Denies constipation, Reports dysphagia (Feels like something stuck in her throat), Denies diarrhea and Denies vomiting Denies urinary frequency, Denies dysuria and Denies urinary urgency Musc Reports arthralgias (Soreness-doing better status post ACL repair), Denies joint swelling, Denies numbness and Denies tingling Neuro Denies Abnormal speech present, Denies behavioral changes, Denies vertigo, Denies dizziness, Denies headache(s), Denies loss of vision, Denies memory loss, Denies numbness and Denies tingling Psych Reports anxiety, Denies behavioral changes, Reports depression, Denies memory loss, Reports mood swings, Reports panic attacks, Denies homicidal ideation and Denies suicidal ideation Endo Reports palpitations (Intermittently, at times associated with lying on left side) Zacarias/Lymph Denies easy bleeding and Denies easy bruising Aller/Immun Denies wheezing Physical exam (Primary Care) Vital Signs: Last Vital Signs Temp 97.6 F 11/09/24 11:17 Pulse 87 11/09/24 11:17 Resp 18 11/09/24 11:17 BP 140/90 H 11/09/24 11:17 Pulse Ox 98 11/09/24 11:17 Oxygen Delivery Method Room Air 11/09/24 11:17 BMI result Body Mass Index 29.2 Tobacco/Smoking Status: Tobacco use Status Tobacco use date assessed 11/09/24 11/09/24 11:25 Patient Tobacco Use Status Former Tobacco user 11/09/24 11:25 Tobacco use type Cigarette 11/09/24 11:25 e-Cigarette/Vaping Use Never Used 11/09/24 11:25 PHQ-9: PHQ-9 Score PHQ-9: Total score 7 11/09/24 11:33 Thrive Assessment: Date of Thrive Assessment Date Thrive assessed 11/09/24 11/09/24 11:25 Currently or been in a relationship where the following occur: No concerns reported Const General: healthy appearing, no acute distress, alert and awake Nutritional Appearance: well nourished Orientation/consciousness: oriented to person, oriented to place and oriented to time HENMT Ears: TM's normal bilaterally General nose exam: Normal nasal mucous membranes and turbinates present Eyes Conjunctivae: conjunctivae normal Sclerae: sclerae normal Pupils: Equal, round and reactive pupils present Neck Neck: Yes no lymphadenopathy and Yes no JVD Thyroid: Thyroid normal Carotids: no bruits Resp Effort & Inspection: normal respiratory effort and not tachypneic Auscultation: clear to auscultation bilaterally, no crackles, no rales, no rhonc hi and no wheezes Cardio Rate: regular rate Rhythm: regular rhythm Heart sounds: S1 normal heart sound present, S2 normal heart sound present, no murmurs and normal S1 and S2 GI Palpation (GI): Soft to palpation, Tenderness to palpation present (GI) in the LUQ, no hepatomegaly and no splenomegaly Auscultation: normal bowel sounds General: Yes no CVA tenderness Back/Spine/Pelvis Back: no CVA tenderness Skin General skin exam: no rashes or lesions noted and dry skin Neuro General: oriented to person, oriented to place and oriented to time Cranial nerves: Yes Equal, round and reactive pupils present Speech: No Abnormal speech present Gait exam (Neuro): Normal gait present Motor exam (neuro): no tremor noted Extrem Right upper extremity: full ROM Left upper extremity: full ROM Right lower extremity: full ROM; no edema Left lower extremity: full ROM and knee Details: no tenderness and no swelling; no edema Psych Mental Status: mental status grossly normal Speech and movement: Normal speech and movement present Affect: normal affect Attitude: cooperative Thought process: Normal thought process present Coding Level of Care Code New Pt Level 4 (21012) Diagnoses Panic attack F41.0 Depression, unspecified depression type F32.A Depression Type: unspecified Anxiety F41.9 Heart palpitations R00.2 Dysphagia, unspecified type R13.10 Dysphagia type: unspecified Exercise-induced asthma J45.990 Mood changes R45.86 Alcohol use F10.90 Smoker F17.200 Time Spent (min) 45 Assessment & Plan Assessment & Plan (1) Panic attack: Code(s): F41.0 - Panic disorder [episodic paroxysmal anxiety] Category: Medical Plan: The patient reports a history of anxiety that leads to panic attacks She is currently not on any treatment for this Encouraged CBT Referral placed a psychiatry (2) Depression: Code(s): F32.A - Depression, unspecified Category: Medical Qualifiers: Depression Type: unspecified Qualified Code(s): F32.A - Depression, unspecified Plan: Encouraged CBT Reports being placed on Zoloft a while back but stopped the medication within a week Psychiatry referral placed (3) Anxiety: Code(s): F41.9 - Anxiety disorder, unspecified Category: Medical Plan: Patient reports anxiety to the point of panic attacks Reports chest tightening and heart palpitation during these episodes The patient is currently not on any medication She reports smoking a packing every 2-3 days and drinking 6- 12 white cloud socially Hydroxyzine 25 mg b.i.d. p.r.n. ordered. The patient may repeat 1 dose of 25 mg. Psychiatry referral placed and CBT encouraged (4) Heart palpitations: Code(s): R00.2 - Palpitations Category: Medical Plan: Patient reports heart palpitation associated with laying on left side Reports at times feels like her heart is skipping beats 7 day Holter monitor ordered (5) Dysphagia: Code(s): R13.10 - Dysphagia, unspecified Category: Medical Qualifiers: Dysphagia type: unspecified Qualified Code(s): R13.10 - Dysphagia, unspecified Plan: Patient reports feeling like something is stuck in her throat and it is difficulty to swallow intermittently Barium swallow ordered (6) Exercise-induced asthma: Code(s): J45.990 - Exercise induced bronchospasm Category: Medical Plan: Refilled albuterol sulfate 90 mcg/actuation 2 inhalation Q 4-6 hour p.r.n. (7) Mood changes: Code(s): R45.86 - Emotional lability Category: Medical Plan: Reports that at times she feels like she does not want to do anything. States that at other times her house is completely cleaned and she is very active. She reports that she does noticed some characteristics of bipolar disorder, particularly she describes ordering 2 cruises at once without the funds to pay for them. Her father had bipolar and also committed suicide. The patient is scared of depression medications due to the risk of suicide associated with these medications. Psychiatry referral placed, and CBT encouraged (8) Alcohol use: Code(s): F10.90 - Alcohol use, unspecified, uncomplicated Category: Social Hx Plan: Encouraged cessation or decrease the number of drinks per sitting (9) Smoker: Code(s): F17.200 - Nicotine dependence, unspecified, uncomplicated Category: Social Hx Plan: Encouraged cessation Orders: Orders Comprehensive [place]. Panel Fast 11/09/24 F32.A - Depression, unspecified, F41.0 - Panic disorder [episodic paroxysmal anxiety], F41.9 - Anxiety disorder, unspecified, Z00.00 - Encounter for general adult medical examination without abnormal findings Lipid Panel 11/09/24 F32.A - Depression, unspecified, F41.0 - Panic disorder [episodic paroxysmal anxiety], F41.9 - Anxiety disorder, unspecified, Z00.00 - Encounter for general adult medical examination without abnormal findings UA CC w/rflx Micro + Cult 11/09/24 F32.A - Depression, unspecified, F41.0 - Panic disorder [episodic paroxysmal anxiety], F41.9 - Anxiety disorder, unspecified, Z00.00 - Encounter for general adult medical examination without abnormal findings Vitamin D 25-OH Total 11/09/24 F32.A - Depression, unspecified, F41.0 - Panic disorder [episodic paroxysmal anxiety], F41.9 - Anxiety disorder, unspecified, Z00.00 - Encounter for general adult medical examination without abnormal findings Amylase 11/09/24 F32.A - Depression, unspecified, F41.0 - Panic disorder [episodic paroxysmal anxiety], F41.9 - Anxiety disorder, unspecified, Z00.00 - Encounter for general adult medical examination without abnormal findings Erythrocyte Sedimentation Rate 11/09/24 F32.A - Depression, unspecified, F41.0 - Panic disorder [episodic paroxysmal anxiety], F41.9 - Anxiety disorder, unspecified, Z00.00 - Encounter for general adult medical examination without abnormal findings ECG 12 lead EKG 11/09/24 R06.02 - Shortness of breath ECG 7 day holter monitor 11/09/24 R00.2 - Palpitations FL barium swallow 11/09/24 R13.10 - Dysphagia, unspecified Complete Blood Count Auto Diff 11/09/24 F32.A - Depression, unspecified, F41.0 - Panic disorder [episodic paroxysmal anxiety], F41.9 - Anxiety disorder, unspe cified, Z00.00 - Encounter for general adult medical examination without abnormal findings TSH reflex Free T4 11/09/24 F32.A - Depression, unspecified, F41.0 - Panic disorder [episodic paroxysmal anxiety], F41.9 - Anxiety disorder, unspecified, Z00.00 - Encounter for general adult medical examination without abnormal findings Lipase 11/09/24 F32.A - Depression, unspecified, F41.0 - Panic disorder [episodic paroxysmal anxiety], F41.9 - Anxiety disorder, unspecified, Z00.00 - Encounter for general adult medical examination without abnormal findings CRP High Sensitivity 11/09/24 F32.A - Depression, unspecified, F41.0 - Panic disorder [episodic paroxysmal anxiety], F41.9 - Anxiety disorder, unspecified, Z00.00 - Encounter for general adult medical examination without abnormal findings US abdomen limited 11/09/24 R10.9 - Unspecified abdominal pain Referrals 2 Psychiatry Referral F32.A - Depression, unspecified, F41.0 - Panic disorder [episodic paroxysmal anxiety], F41.9 - Anxiety disorder, unspecified, R45.86 - Emotional lability Medications: New albuterol sulfate 90 mcg/actuation (Ventolin HFA) 2 inhalations inhalation Q4-6H PRN 8.5 grams 3RF shortness of breath or wheezing hydroxyzine HCl repeat dose x1 if the 25 mg does not work 25 mg PO BID PRN 60 tabs 2RF anxiety
--- OUTSIDE RECORDS SUMMARY | 2024-11-09 11:52 | XMS_ITS | Encounter Summary ---
Author Organization [facility] Address [address] [place] [id number] Phone Care Team Providers Care Electric Razor Mechanic Name Role Phone Lucy Nava MD Primary Care Provider Encounter Details Date Type Department Care Team (Late st Contact Info) Description 04/17/2011 Documentation [facility] [place] [address] [place] [address] Family Medicine, Physician [address] [place], [place] [id number] Social History Tobacco Use Types Packs/Day Years [...] on filedocumented in this encounter Care Teams Electric Razor Mechanic Relationship Specialty Start Date End Date Lucy Nava MD [address] [facility] [place] [address] PCP - General 11/21/16 07/21/22 documented as of this encounter
--- OUTSIDE RECORDS SUMMARY | 2024-11-09 11:52 | XMS_ITS | Clinical Summary ---
Author Organization [facility] Address [address] [place] [address] Care Team Providers Care Patient Transition Specialist Name Role Phone ToryLydia miller Primary Care [...] Vaccine ( - 2023-2 5 season) 2023 Depression Screening 04/13/2024 Influenza Vaccine (#1) 2024 01/04/2018 DTaP,Tdap,and Td Vaccines (2 - [...] 5 Years) and At-Risk Patients (6 to 49 Years) Aged Out No longer eligible b [...] RESULTING AGENCY - 12/10/2017 10:37 AM EDT [id number] RESULTS OF GEN-PROBE APTIMA COMBO 2 ASSAY [...] Recently Relevant to Health Maintenance Care Teams Patient Transition Specialist Relationship Specialty Start Date End Date Lydia Fuentes DO PCP - General Internal Medicine 07/07/18
--- OUTSIDE RECORDS SUMMARY | 2024-11-09 11:52 | XMS_ITS | Clinical Summary ---
Author Organization [facility] Address [address] [facility] [address] [place] [address] Care Team Providers Care Outside Plant Supervisor Name Role Phone Unavailable Primary Care Provider [...] Years) and At-Risk Patients (6 to 49) Years (1 of 2 - PCV) 2013 Pap Smear 12/27/2015 COVID-19 Vaccine ( season) 2023 04/03/2022, 05/12/2020, 04/21/2020 Influenza Vaccine (#1) 2024 9, 02/21/2015, 05/23/2013 DTaP/Tdap/Td Vaccines (8 - [...] patient's age to complete this topic Insurance [facility]
== END 2024-11-09 12:09 | disposition home or self-care (01) ==
LOC: HO.HMCH 10:52
DX: F41.0 Panic disorder [episodic paroxysmal anxiety] (principal); F32.A Depression, unspecified; F41.9 Anxiety disorder, unspecified; R00.2 Palpitations; R13.10 Dysphagia, unspecified; J45.990 Exercise induced bronchospasm; R45.86 Emotional lability; F10.90 Alcohol use, unspecified, uncomplicated; F17.200 Nicotine dependence, unspecified, uncomplicated

== ENCOUNTER 2024-11-14 15:02 | Outpatient (AMB) | payer OTHER, SELFPAY ==
--- NOTE | 2024-11-14 15:04 | MHC.OFFVISPS ---
Intake Intake Visit Reasons: consultation Senior Communications Specialist Required: No Allergies No Known Allergies Allergy (Verified 11/09/24 11:28) Medication List - Last Reconciled 11/14/24 by Lucy Segundo APRN albuterol sulfate 90 mcg/actuation (Ventolin HFA) 2 inhalations inhalation Q4-6H PRN hydroxyzine HCl 25 mg PO BID PRN naproxen (EC-Naprosyn) 500 mg PO BID PRN HPI- Psychiatric Chief Complaint: consultation HPI Narrative: 28-year-old female referred by PCP due to concerns re: anxiety and depression. The patient reports a history of anxiety and depression with anxiety progressing to panic attacks. She was previously prescribed Zoloft but discontinued due to side effects and fear of worsening symptoms, given her family history of suicide. She has not been on any medication for anxiety and has not seen a therapist recently, although she had some therapy sessions after her father's in 2019. Patient reports that her father struggled from bipolar and she thinks she has some mild characteristics, like she once purchase tickets to two different [employer], knowing that she does not have the money for this. she reports mostly feeling depressed for the last 5 years (first depression and anxiety was age 11). she has had a few short episodes of not sleeping feeling energetic, cleaning the house and feeling irritable but these often dont last more than 24 hours and she feels depressed again. she reports littel interst in activities, loss of enjoymenyt, low energy, poor appetite, feeling bad about herself, trouble concentrating, feeling nervous, edgy and anxious every day. worries every day. she feels afraid something bad will happen,she can be irritable; she has broken sleep with waking almost every hour through the night. Past Psychiatric History: out pt tx. No IPLOC. Family hx suicide Father hung himself in 2019. Past trial of zoloft negative Subjective Subjective Subjective Medication Compliance: Yes Side effects from medications: No Review of Systems Medical Review of Systems: unchanged Mental Status Exam Mental Status Exam Patient Appearance: Well Grooomed and Appropriate Patient Orientation: Person, Place, Time and Situation Level of Consciousness: Awake, Appropriate and Alert Patient Behavior: Appropriate, Cooperative, Anxious and Good Eye Contact Mood Description: Constricted, Depressed, Anxious and Sad Affect Description: Constricted, Depressed and Anxious Patient Cognition Impaired: No Ability to Follow Directions: Good Speech Pattern: Clear, Appropriate and Coherent Memory Description: Intact Hallucinations: None Delusions: Not Present Thought Process: Intact and Goal Oriented Thought Content: positive for Intact and positive for Goal Oriented Judgement: Good Assessment and Plan Assessment & Plan (1) Generalized anxiety disorder with panic attacks: Status: Acute Code(s): F41.1 - Generalized anxiety disorder; F41.0 - Panic disorder [episodic paroxysmal anxiety] (2) Persistent mood [affective] disorder, unspecified: Status: Acute Code(s): F34.9 - Persistent mood [affective] disorder, unspecified Plan rule out cyclothymia rule out PTSD labs ordered consider adding magnesium glycinate 100-200mg BID consider adding vit b6 for anxiety consider lavender oil capsules for anxiety (read NIH study comparing lavendar oil caps vs ativan) start lamictal 25mg take one daily x 7 days then take 2 tablets every day x 7 days then increase to 100mg daily stop lamictal if develop rash and call office right away return in 3 weeks for follow up Medications: New lamotrigine (Lamictal) 25 mg orally Take one tablet daily in am x 7 days then take 2 tabs daily x 7 days then increase to 100mg (4 tabs )daily in am 90 tabs 0RF Orders: Orders Vitamin B12 and Folate Today F32.A - Depression, unspecified, R45.86 - Emotional lability Vitamin B1 Today F32.A - Depression, unspecified, R45.86 - Emotional lability Counseling and coordination of Care Pt. Self Management counseling: Maintenance-social rhythm, Mod caffeine/ETOH intake, Sleep hygiene, General coping skills and Problem solving Medication management counseling: Effectiveness, Side effects, Dosing range, Duration, Drug interaction, Adherence and Other (stop id develop rash; no new personal products for 60 days, ie soap, shampoo laundry detergent) Diagnosis and Prognosis Counseling: Accuracy of diagnosis, Prognosis over time, Impact of diagnosis on life functions, Impact of family relationship, Problematic behaviors secondary to diagnosis and Adequacy of current interventions Details: I spent 90 minutes reviewing the record, seeing the patient and documenting in the medical record. Counseling provided to the patient/caregiver as outlined below. Addressed patient/caregiver concerns regarding current medication regime including effective adherence. Addressed patient/caregiver concerns regarding diagnosis and prognosis including accuracy of diagnosis, prognosis over time, impact of diagnosis. Addressed patient/caregiver concerns regarding impact of recent stressors. [facility] Medical History (Updated 11/14/24 @ 16:02 by Lucy Segundo APRN) Exercise-induced asthma Heart palpitations Depression Panic attack Anxiety ACL tear Hx of ectopic Surgical History H/O section Family History (Updated 11/10/24 @ 07:45 by ZACHARIAH Ceron) Paternal Grandfather HTN (hypertension) Lymphoma Esophageal cancer Mother Alcoholism OCD (obsessive compulsive disorder) Bipolar 2 disorder Father No problems noted. 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 works FT [employer]PER[employer] Substance History: She reports alcohol use, consuming 6 to 12 white clouds in social settings, and acknowledges that it may be self-medication for anxiety. She also smokes approximately one pack of cigarettes every two to three days. Trauma History: father with severe bipolar do and suicided in 2019. Coding Level of Care Code Psych Diag Eval w/Med (48517) Diagnoses Generalized anxiety disorder with panic attacks F41.1; F41.0 Persistent mood [affective] disorder, unspecified F34.9
--- OUTSIDE RECORDS SUMMARY | 2024-11-14 15:07 | XMS_ITS | Clinical Summary ---
Author Organization [employer] Address [address] [facility] [address] [place] [address] Care Team Providers Care Bioprocess Engineer Name Role Phone Unavailable Primary Care Provider [...] patient's age to complete this topic Insurance [facility] [place] [address]
--- OUTSIDE RECORDS SUMMARY | 2024-11-14 15:07 | XMS_ITS | Clinical Summary ---
Author Organization [facility] it[facility] Address [address] [place] [address] Care Team Providers Care Optical Instrument Assembler Name Role Phone ToryLydia miller Primary Care [...] RESULTING AGENCY - 12/10/2017 10:37 AM EDT [id number] RESULTS OF GEN-PROBE APTIMA COMBO 2 ASSAY [...] Recently Relevant to Health Maintenance Care Teams Optical Instrument Assembler Relationship Specialty Start Date End Date Lydia Fuentes DO PCP - General Internal Medicine 07/07/18
--- OUTSIDE RECORDS SUMMARY | 2024-11-14 15:07 | XMS_ITS | Encounter Summary ---
Author Organization [facility] Address [address] [place] [address] Phone Care Team Providers Care Electron Gun Assembler Name Role Phone Lucy Nava MD Primary Care Provider Encounter Details Date Type Department Care Team (Late st Contact Info) Description 04/17/2011 [place] [facility] [place] [address] [place] [address] Family Medicine, Physician [address] [place], [place] [phone] Social History Tobacco Use Types Packs/Day Years [...] on filedocumented in this encounter Care Teams Electron Gun Assembler Relationship Specialty Start Date End Date Lucy Nava MD [address] [facility] [place] [address] PCP - General 11/21/16 07/21/22 documented as of this encounter
== END 2024-11-14 16:00 | disposition home or self-care (01) ==
LOC: HO.HOP 15:02
PROVIDERS: Visit Provider Clinical Nurse Specialist Psychiatric/Mental Health
DX: F41.1 Generalized anxiety disorder (principal); F41.0 Panic disorder [episodic paroxysmal anxiety]; F34.9 Persistent mood [affective] disorder, unspecified
CPT/HCPCS: 90792

== ENCOUNTER → 2024-11-14 15:02 | Outpatient (BNVA) | payer OTHER, SELFPAY | PROVIDERS: Visit Provider Clinical Nurse Specialist Psychiatric/Mental Health | DX: F41.1 Generalized anxiety disorder (principal); F34.9 Persistent mood [affective] disorder, unspecified | CPT/HCPCS: 90792 ==

== ENCOUNTER 2024-11-15 15:35 | Outpatient (REF) | payer OTHER, SELFPAY ==
--- OUTSIDE RECORDS SUMMARY | 2024-11-15 15:58 | XMS_ITS | Clinical Summary ---
Author Organization [employer] Address [address] [facility] [address] [place] [address] Care Team Providers Care Senior Living Advisor Name Role Phone Unavailable Primary Care Provider [...] patient's age to complete this topic Insurance [place] [address]
--- OUTSIDE RECORDS SUMMARY | 2024-11-15 15:58 | XMS_ITS | Encounter Summary ---
Author Organization [facility] Address [address] [place] [address] Phone Care Team Providers Care Supervisor Electronics Inspection Name Role Phone Lucy Nava MD Primary Care Provider Encounter Details Date Type Department Care Team (Late st Contact Info) Description 04/17/2011 [place] [facility] [place] [address] [place] [address] Family Medicine, Physician [address] [place], [place] [phone] Social History Tobacco Use Types Packs/Day Years [...] on filedocumented in this encounter Care Teams Supervisor Electronics Inspection Relationship Specialty Start Date End Date Lucy Nava MD [address] [facility] [place] [address] PCP - General 11/21/16 07/21/22 documented as of this encounter
--- OUTSIDE RECORDS SUMMARY | 2024-11-15 15:58 | XMS_ITS | Clinical Summary ---
Author Organization [facility] ity Address [address] [place] [address] Care Team Providers Care Jury Consultant Name Role Phone ToryLydia miller Primary Care [...] RESULTING AGENCY - 12/10/2017 10:37 AM EDT [id number] RESULTS OF GEN-PROBE APTIMA COMBO 2 ASSAY [...] Recently Relevant to Health Maintenance Care Teams Jury Consultant Relationship Specialty Start Date End Date Lydia Fuentes DO PCP - General Internal Medicine 07/07/18
[2024-11-15 16:00] LABS: MANUAL DIFF FLAG NO
[2024-11-15 16:30] LABS: Hematocrit 35.4 % (37.0-47.0); Hemoglobin 12.3 g/dl (12.0-16.0); Imm Gran Abs Auto 0.02 X10*3/uL (0.00-0.03); Imm Gran Pct Auto 0.2 % (0.0-0.4); Lymphocytes Absolute Auto 2.1 X10*3/uL (1.2-4.9); Mean Corpuscular HGB Conc 34.7 g/dl (31.0-35.0); Mean Corpuscular Hemoglobin 30.3 pg (27.0-33.0); Mean Corpuscular Volume 87.2 fL (80.0-98.0); NRBC Abs Auto 0.000 X10*3/uL (0.0-0.012); NRBC Pct Auto 0.0 /100WBC (0.0-0.2); Platelet Count 274 X10*3/uL (160-400); Red Blood Count 4.06 X10*6/uL (4.20-5.50); White Blood Count 9.1 X10*3/uL (4.8-10.8)
[2024-11-15 16:32] LABS: Appearance Urine Clear; Glucose Urine UA Negative (Negative); PH 6.5 (5.0-9.0); Specific Gravity - Urine <= 1.005 (1.005-1.025); UMIC TRIGGER UACC YES
[2024-11-15 16:42] LABS: UACC Culture Trigger YES
[2024-11-15 17:06] LABS: Alanine Aminotransferase 29 U/L (0-31); Albumin Level 4.7 g/dL (3.5-5.0); Alkaline Phosphatase 81 U/L (39-117); Amylase 53 U/L (28-100); Anion Gap 10 (12-20); Aspartate Amino Transferase 25 U/L (5-31); Blood Urea Nitrogen 10 mg/dL (9-16); Calcium 9.0 mg/dL (8.4-10.2); Carbon Dioxide 26 mmol/L (22-29); Chloride 107 mmol/L (96-108); Cholesterol 161 mg/dL (<200); Estimated Glomerular Filt Rate > 60; HDL Cholesterol 82 mg/dL (>40); Lipase 13 U/L (8-78); Potassium 4.4 mmol/L (3.3-5.1); Sodium 139 mmol/L (135-145); Total Protein 6.9 g/dL (6.5-8.0); Triglycerides 42 mg/dL (<150)
[2024-11-15 17:33] LABS: Folate 9.9 ng/mL (> or = 4.0); Vitamin B12 513 pg/mL (200-900)
== END 2024-11-15 15:36 | disposition home or self-care (01) ==
LOC: HO.LAB 15:35
PROVIDERS: Clinical Nurse Specialist Psychiatric/Mental Health
DX: Z00.00 Encounter for general adult medical examination without abnormal findings (principal); Z13.6 Encounter for screening for cardiovascular disorders; F32.A Depression, unspecified; F41.0 Panic disorder [episodic paroxysmal anxiety]; R45.86 Emotional lability
CPT/HCPCS: 36415; 80053; 80061; 81001; 82150; 82306; 82607; 82746; 83690; 84425; 84443; 85025; 85652; 86141; 87086

== ENCOUNTER 2024-11-17 14:09 | Outpatient (AMB) | payer OTHER, SELFPAY ==
--- NOTE | 2024-11-17 14:10 | MHC.OFFVIS ---
Intake Visit Reasons: PO LT knee ACL/arthroscopy 09/07/24 NE Intake Note: Lorena is a 28 year old female who presents today for a post operative visit s/p Left ACL reconstruction with allograft and partial medial meniscectomy 09/07/24. Patient reports that she is having continued swelling and stiffness at night and in the morning. Her pain is mild but increases with more activity. Continues to work with Physical Therayp and is taking Ibuprofen PRN which is helpful Allergies No Known Allergies Allergy (Verified 11/17/24 14:12) HPI HPI PO LT knee ACL/arthroscopy 09/07/24 NE: Details: Lorena is a 28 year old female who presents today for a post operative visit s/p Left ACL reconstruction with allograft and partial medial meniscectomy 09/07/24. Patient reports that she is having continued swelling and stiffness at night and in the morning. Her pain is mild but increases with more activity. Continues to work with Physical Therayp and is taking Ibuprofen PRN which is helpful PFSH Medical History (Updated 11/14/24 @ 16:02 by Lucy Segundo APRN) Exercise-induced asthma Heart palpitations Depression Panic attack Anxiety ACL tear Hx of ectopic Surgical History H/O section Family History (Updated 11/10/24 @ 07:45 by ZACHARIAH Ceron) Paternal Grandfather HTN (hypertension) Lymphoma Esophageal cancer Mother Alcoholism OCD (obsessive compulsive disorder) Bipolar 2 disorder Father No problems noted. 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 Intermittent swelling and occasional pain but no giving way and she is attending PT. I extended her FMLA until the end of December. She should follow up to see me in 3 months. Continue home physical therapy for strengthening and no cutting activities. Coding Level of Care Code Global (98541) Diagnoses Status post reconstruction of anterior cruciate ligament Z98.890
--- OUTSIDE RECORDS SUMMARY | 2024-11-17 14:15 | XMS_ITS | Encounter Summary ---
Author Organization [facility] Address [address] [place] [address] Phone Care Team Providers Care Luggage Attendant Name Role Phone Lucy Nava MD Primary Care Provider Encounter Details Date Type Department Care Team (Late st Contact Info) Description 04/17/2011 [place] [facility] [place] [address] [place] [address] Family Medicine, Physician [address] [place], [place] [phone] Social History Tobacco Use Types Packs/Day Years [...] on filedocumented in this encounter Care Teams Luggage Attendant Relationship Specialty Start Date End Date Lucy Nava MD [address] [facility] [place] [address] PCP - General 11/21/16 07/21/22 documented as of this encounter
--- OUTSIDE RECORDS SUMMARY | 2024-11-17 14:15 | XMS_ITS | Clinical Summary ---
Author Organization [employer] Address [address] [facility] [address] [place] [address] Care Team Providers Care Travelers' Aid Worker Name Role Phone Unavailable Primary Care Provider [...] patient's age to complete this topic Insurance [facility] (O)
--- OUTSIDE RECORDS SUMMARY | 2024-11-17 14:15 | XMS_ITS | Clinical Summary ---
Author Organization [facility] ity Address [address] [place] [address] Care Team Providers Care Binder Lockstitch Name Role Phone ToryLydia miller Primary Care [...] RESULTING AGENCY - 12/10/2017 10:37 AM EDT [id number] RESULTS OF GEN-PROBE APTIMA COMBO 2 ASSAY [...] Recently Relevant to Health Maintenance Care Teams Binder Lockstitch Relationship Specialty Start Date End Date Lydia Fuentes DO PCP - General Internal Medicine 07/07/18
== END 2024-11-17 14:31 | disposition home or self-care (01) ==
LOC: HO.HOS 14:09
PROVIDERS: Visit Provider Orthopaedic Surgery
DX: Z98.890 Other specified postprocedural states (principal)
CPT/HCPCS: 99024

== ENCOUNTER 2024-11-29 10:55 | Outpatient (REF) | payer OTHER, SELFPAY ==
--- NOTE | ~2024-11-29 | US_ITS ---
CLINICAL HISTORY: R10.9 - Unspecified abdominal pain --- Additional Notes or Special Instructions: c o pain in the left upper quadrants US abdomen limited Comparison: None provided Findings: The left kidney is normal in size measuring 10.6 cm in length. There is mild fullness of the renal pelvis without jessica hydronephrosis. Normal cortical thickness and echogenicity. The spleen is normal in size measuring 10.2 cm in length. No ascites. IMPRESSION: 1. Normal limited abdominal ultrasound. This document has been electronically signed by: Andrews Andujar MD on 11/29/2024 22:27:24
--- OUTSIDE RECORDS SUMMARY | 2024-11-29 12:28 | XMS_ITS | Encounter Summary ---
Author Organization [facility] Address [address] [place] [address] Phone Care Team Providers Care Solderer Electronic Name Role Phone Lucy Nava MD Primary Care Provider Encounter Details Date Type Department Care Team (Late st Contact Info) Description 04/17/2011 [place]ation [facility] [place] [address] [place] [address] Family Medicine, Physician [address] [place], [place] [phone] Social History Tobacco Use Types Packs/Day Years [...] on filedocumented in this encounter Care Teams Solderer Electronic Relationship Specialty Start Date End Date Lucy Nava MD [address] [facility] [address] PCP - General 11/21/16 07/21/22 documented as of this encounter
--- OUTSIDE RECORDS SUMMARY | 2024-11-29 12:28 | XMS_ITS | Clinical Summary ---
Author Organization [facility] ity Address [address] [place] [address] Care Team Providers Care New Autos Delivery Driver Name Role Phone ToryLydia miller Primary Care [...] RESULTING AGENCY - 12/10/2017 10:37 AM EDT [id number] RESULTS OF GEN-PROBE APTIMA COMBO 2 ASSAY [...] Recently Relevant to Health Maintenance Care Teams New Autos Delivery Driver Relationship Specialty Start Date End Date Lydia Fuentes DO PCP - General Internal Medicine 07/07/18
--- OUTSIDE RECORDS SUMMARY | 2024-11-29 12:29 | XMS_ITS | Clinical Summary ---
Author Organization [employer] Address [address] [facility] [address] [place] [address] Care Team Providers Care Solar Sales Ambassador Name Role Phone Unavailable Primary Care Provider [...] patient's age to complete this topic Insurance [facility] ([place]) [place] [address]
== END 2024-11-29 10:56 | disposition home or self-care (01) ==
LOC: HO.US 10:55
DX: R10.12 Left upper quadrant pain (principal)
CPT/HCPCS: 76705

== ENCOUNTER 2024-12-05 10:27 | Outpatient (AMB) | payer OTHER, SELFPAY ==
--- OUTSIDE RECORDS SUMMARY | 2024-12-05 11:34 | XMS_ITS | Clinical Summary ---
Author Organization [employer] Address [address] [facility] [address] [place] [address] Care Team Providers Care Coding Consultant Name Role Phone Unavailable Primary Care Provider [...] patient's age to complete this topic Insurance [facility] (O)
--- OUTSIDE RECORDS SUMMARY | 2024-12-05 11:34 | XMS_ITS | Clinical Summary ---
Author Organization [facility] ity Address [address] [place] [address] Care Team Providers Care Cnc Wood Lathe Operator Name Role Phone ToryLydia miller Primary [...] RESULTING AGENCY - 12/10/2017 10:37 AM EDT [id number] RESULTS OF GEN-PROBE APTIMA COMBO 2 ASSAY [...] Recently Relevant to Health Maintenance Care Teams Cnc Wood Lathe Operator Relationship Specialty Start Date End Date Lydia Fuentes DO PCP - General Internal Medicine 07/07/18
--- OUTSIDE RECORDS SUMMARY | 2024-12-05 11:34 | XMS_ITS | Encounter Summary ---
Author Organization [facility] Address [address] [place] [address] Phone Care Team Providers Care Sole Layer Name Role Phone Lucy Nava MD Primary Care Provider Encounter Details Date Type Department Care Team (Late st Contact Info) Description 04/17/2011 Documentation [facility] [place] [address] [place] [address] Family Medicine, Physician [address] [place], [place] [phone] Social History Tobacco Use Types Packs/Day Years [...] on filedocumented in this encounter Care Teams Sole Layer Relationship Specialty Start Date End Date Lucy Nava MD [address] [facility] [place] [address] PCP - General 11/21/16 07/21/22 documented as of this encounter
--- NOTE | 2024-12-05 14:53 | MHC.OFFVISPS ---
Intake Intake Visit Reasons: follow up Recreational Therapist Required: No Allergies No Known Allergies Allergy (Verified 11/17/24 14:12) Medication List - Last Reconciled 12/05/24 by Lucy Segundo APRN albuterol sulfate 90 mcg/actuation (Ventolin HFA) 2 inhalations inhalation Q4-6H PRN hydroxyzine HCl 25 mg PO BID PRN lamotrigine (Lamictal) 150 mg (1.5 x 100 mg) PO DAILY HPI- Psychiatric Chief Complaint: follow up HPI Narrative: Pt seen for follow up re: depression, moodiness, anxiety. The patient reports a history of anxiety and depression with anxiety progressing to panic attacks. She was previously prescribedPatient reports some improvement. Tolerating lamictal well; no rash. reports some brain fog. Pt reports has commented that she seems calmer overall. she denies irritability. she denies SI or HI. no impulsive behaviors. Labs reviewed - essentially normal; vitamin levels good; TSH low normal. From first appt: She has not been on any medication for anxiety and has not seen a therapist recently, although she had some therapy sessions after her father's in 2019. Patient reports that her father struggled from bipolar and she thinks she has some mild characteristics, like she once purchase tickets to two different cruises, knowing that she does not have the money for this. she reports mostly feeling depressed for the last 5 years (first depression and anxiety was age 11). she has had a few short episodes of not sleeping feeling energetic, cleaning the house and feeling irritable but these often dont last more than 24 hours and she feels depressed again. she reports littel interst in activities, loss of enjoymenyt, low energy, poor appetite, feeling bad about herself, trouble concentrating, feeling nervous, edgy and anxious every day. worries every day. she feels afraid something bad will happen,she can be irritable; she has broken sleep with waking almost every hour through the night. Past Psychiatric History: out pt tx. No IPLOC. Family hx suicide Father hung himself in 2019. Past trial of zoloft negative Subjective Subjective Subjective Medication Compliance: Yes Side effects from medications: No Review of Systems Medical Review of Systems: unchanged Mental Status Exam Mental Status Exam Patient Appearance: Well Grooomed and Appropriate Patient Orientation: Person, Place, Time and Situation Level of Consciousness: Awake, Appropriate and Alert Patient Behavior: Appropriate, Cooperative and Good Eye Contact Mood Description: Constricted, Depressed and Sad Affect Description: Constricted and Depressed Patient Cognition Impaired: No Ability to Follow Directions: Good Speech Pattern: Clear, Appropriate and Coherent Memory Description: Intact Hallucinations: None Delusions: Not Present Thought Process: Intact and Goal Oriented Thought Content: positive for Intact and positive for Goal Oriented Judgement: Good Assessment and Plan Assessment & Plan (1) Generalized anxiety disorder with panic attacks: Status: Acute Code(s): F41.1 - Generalized anxiety disorder; F41.0 - Panic disorder [episodic paroxysmal anxiety] (2) Persistent mood [affective] disorder, unspecified: Status: Acute Code(s): F34.9 - Persistent mood [affective] disorder, unspecified Plan rule out cyclothymia rule out PTSD increase lamictal to 100mg daily x 10 days then increase to 150mg daily. stop lamictal if develop rash and call office right away consider wellbutrin or stimulant for ADHD symptoms if needed once mood stable return in 4-6 weeks for follow up Medications: New lamotrigine (Lamictal) 150 mg (1.5 x 100 mg) PO DAILY 135 tabs 1RF Discontinued lamotrigine (Lamictal) Discontinued Reason: Duplicate 25 mg orally Take one tablet daily in am x 7 days then take 2 tabs daily x 7 days then increase to 100mg (4 tabs )daily in am 90 tabs 0RF Counseling and coordination of Care Pt. Self Management counseling: Maintenance-social rhythm, Mod caffeine/ETOH intake, Sleep hygiene, General coping skills and Problem solving Medication management counseling: Effectiveness, Side effects, Dosing range, Duration, Drug interaction, Adherence and Other (stop id develop rash; no new personal products for 60 days, ie soap, shampoo laundry detergent) Diagnosis and Prognosis Counseling: Accuracy of diagnosis, Prognosis over time, Impact of diagnosis on life functions, Impact of family relationship, Problematic behaviors secondary to diagnosis and Adequacy of current interventions Details: I spent 40 minutes reviewing the record, seeing the patient and documenting in the medical record. Counseling provided to the patient/caregiver as outlined below. Addressed patient/caregiver concerns regarding current medication regime including effective adherence. Addressed patient/caregiver concerns regarding diagnosis and prognosis including accuracy of diagnosis, prognosis over time, impact of diagnosis. Addressed patient/caregiver concerns regarding impact of recent stressors. [facility] Medical History (Updated 11/14/24 @ 16:02 by Lucy Segundo APRN) Exercise-induced asthma Heart palpitations Depression Panic attack Anxiety ACL tear Hx of ectopic Surgical History H/O section Family History (Updated 11/10/24 @ 07:45 by ZACHARIAH Ceron) Paternal Grandfather HTN (hypertension) Lymphoma Esophageal cancer Mother Alcoholism OCD (obsessive compulsive disorder) Bipolar 2 disorder Father No problems noted. 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 works [employer] Substance History: She reports alcohol use, consuming 6 to 12 white clouds in social settings, and acknowledges that it may be self-medication for anxiety. She also smokes approximately one pack of cigarettes every two to three days. Trauma History: father with severe bipolar do and suicided in 2019. Coding Level of Care Code Est Pt Level 4 (65705) Diagnoses Generalized anxiety disorder with panic attacks F41.1; F41.0 Persistent mood [affective] disorder, unspecified F34.9
== END 2024-12-05 10:58 | disposition home or self-care (01) ==
LOC: HO.HOP 10:27
PROVIDERS: Visit Provider Clinical Nurse Specialist Psychiatric/Mental Health
DX: F41.1 Generalized anxiety disorder (principal); F41.0 Panic disorder [episodic paroxysmal anxiety]; F34.9 Persistent mood [affective] disorder, unspecified
CPT/HCPCS: 99214

== ENCOUNTER 2025-01-04 10:20 | Outpatient (AMB) | payer OTHER, SELFPAY ==
[2025-01-04 10:31] VITALS: BP 122/84; PULSE 86; RESP 18; TEMP 37.7; O2SAT 98; BMI 31.0
--- NOTE | 2025-01-04 10:31 | A.OFFPC_ITS ---
Vital Signs 01/04/25 10:31 Height 5 ft 6 in Weight 192 lb 4 oz BMI 31.0 BP 122/84 Blood Pressure Location Lt brachial Position Sitting Respiration 18 Pulse 86 Pulse Source Pulse Oximeter Temp 99.9 F Temp Source Oral Pulse Oximetry (%) 98 Oxygen Delivery Method Room Air Intake Visit Reasons: annual physical Car Audio Installer Required: No Accompanied by: Self / Same As Patient Allergies No Known Allergies Allergy (Verified 01/04/25 10:47) Medication List - Last Reconciled 01/04/25 by ZACHARIAH Ceron albuterol sulfate 90 mcg/actuation (Ventolin HFA) 2 inhalations inhalation Q4-6H PRN hydroxyzine HCl 25 mg PO BID PRN lamotrigine (Lamictal) 150 mg (1.5 x 100 mg) PO DAILY Tobacco use date assessed: 01/04/25 Dental Screening Dental Screen Date: 01/04/25 Did you have a dental visit in the last 12 months?: No Did you have a dental problem in the last 6 months where you did not have access to dental care?: No Was dental information given to patient?: No HPI annual physical HPI Details The patient is a 29-year-old female presenting for annual physical Dentist: Making an appt Eye: Two floaters in the left eye Snellen: Right: Left: Corrected vision: supposed to but does not wear glasses STI screening:n/a Colonoscopy:n/a Pap Smer: She was referred PHQ-9: Flu: up to date COVID: x3 Tdap: up to date Diet: regular Exercise: plans to start The patient reports gastrointestinal discomfort and visual disturbances. The patient reports persistent gastrointestinal discomfort, occurring daily but not continuously. Approximately 60-70% of the time, the discomfort follows meals, though it can also occur when fasting. Previous abdominal ultrasounds were normal, and omeprazole has been recommended to evaluate symptom improvement. The patient experiences visual disturbances, specifically floaters in the left eye, which are bothersome. She was prescribed glasses ten years ago but does not currently wear them. An ophthalmology referral has been made for further evaluation. The patient has a history of anxiety with panic attacks, managed with hydro xyzine as needed. Hydroxyzine is effective, though it causes drowsiness. She was prescribed lamotrigine but tapered it due to intrusive thoughts at higher doses. The patient has mild anemia, not currently a significant concern. She has gained approximately 45 pounds over the past 6-8 months and acknowledges a need to increase physical activity. [facility] Medical History (Updated 01/04/25 @ 23:05 by ZACHARIAH Ceron) Exercise-induced asthma Heart palpitations Depression Panic attack Anxiety ACL tear Hx of ectopic Surgical History H/O section Family History Paternal Grandfather HTN (hypertension) Lymphoma Esophageal cancer Mother Alcoholism OCD (obsessive compulsive disorder) Bipolar 2 disorder Father No problems noted. 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 Cognitive needs: No Hearing needs: No Vision needs: No Questionnaire Thrive Questionnaire Date Thrive assessed: 11/07/24 I am a: Patient What is your living situation today?: I have a steady place to live Within the past 12 months, did the food you bought not last and you didn't have the money to get more?: Never true Within the past 12 months, did you worry whether your food would run out before you got money to buy more?: Never true Do you have trouble paying for medicines?: No Do you have trouble getting transportation to medical appointments?: No Do you have trouble paying your heating and electricity bill?: No Do you have trouble taking care of your child, family member or friend?: No Do you have trouble with day-to-day activities such as bathing, preparing meals, shopping, managing finances, etc.?: No Are you currently unemployed and looking for a job?: No Are you interested in more education?: No Please select the resources that you would like help with: None Currently or been in a relationship where the following occur: No concerns reported THRIVE Score: 0 AUDIT C Alcohol Use Questionnaire (AUDIT-C) 1. How often do you have a drink containing alcohol?: 2-3 times a week 2. How many drinks containing alcohol do you have on a typical day when you are drinking?: 5 or 6 3. How often do you have six or more drinks on one occasion?: Monthly Total Score: 7 JACINDA-7 AMB Questionnaire JACINDA-7 Date JACINDA - 7 assessed: 11/09/24 Source: Developed by Drs. Librado Cantrell, Edwige Zaman, Ananda Tavarez and colleagues, with an educational layla from [employer]. Review of Systems Const Denies headache(s) Eyes Denies loss of vision and Reports spots in vision (Floaters in left eye) ENT Denies vertigo, Denies dizziness, Denies headache(s) and Denies sore throat Card Denies chest pain, Denies leg edema and Denies lightheadedness Resp Denies cough, Denies hemoptysis and Denies wheezing GI Reports abdominal pain (Postprandial, epigastric radiates to left upper quadrant), Denies melena, Denies constipation, Reports heartburn, Denies diarrhea and Denies vomiting Denies urinary frequency, Denies dysuria and Denies urinary urgency Musc Denies arthralgias, Denies joint swelling, Denies numbness and Denies tingling Neuro Denies Abnormal speech present, Denies behavioral changes, Denies vertigo, Denies dizziness, Denies headache(s), Denies loss of vision, Denies memory loss, Denies numbness and Denies tingling Psych Reports anxiety, Denies behavioral changes, Reports depression, Denies memory loss and Reports panic attacks Zacarias/Lymph Denies easy bleeding and Denies easy bruising Aller/Immun Denies wheezing Physical exam (Primary Care) Vital Signs: Last Vital Signs Temp 99.9 F 01/04/25 10:31 Pulse 86 01/04/25 10:31 Resp 18 01/04/25 10:31 BP 122/84 01/04/25 10:31 Pulse Ox 98 01/04/25 10:31 Oxygen Delivery Method Room Air 01/04/25 10:31 BMI result Body Mass Index 31.0 Tobacco/Smoking Status: Tobacco use Status Tobacco use date assessed 01/04/25 01/04/25 10:36 Patient Tobacco Use Status Former Tobacco user 01/04/25 10:36 Tobacco use type Cigarette 01/04/25 10:36 e-Cigarette/Vaping Use Never Used 01/04/25 10:36 Thrive Assessment: Date of Thrive Assessment Date Thrive assessed 11/07/24 01/04/25 10:36 Currently or been in a relationship where the following occur: No concerns reported Const General: healthy appearing, no acute distress, alert and awake Nutritional Appearance: well nourished Orientation/consciousness: oriented to person, oriented to place and oriented to time HENMT Ears: TM's normal bilaterally General nose exam: Normal nasal mucous membranes and turbinates present Eyes Conjunctivae: conjunctivae normal Sclerae: sclerae normal Pupils: Equal, round and reactive pupils present Neck Neck: Yes no lymphadenopathy and Yes no JVD Thyroid: Thyroid normal Carotids: no bruits Resp Effort & Inspection: normal respiratory effort and not tachypneic Auscultation: no crackles, no rales, no rhonchi and no wheezes Cardio Rate: regular rate Rhythm: regular rhythm Heart sounds: no murmurs and normal S1 and S2 GI Palpation (GI): Soft to palpation, nontender, no hepatomegaly and no splenomegaly Auscultation: normal bowel sounds General: Yes no CVA tenderness Back/Spine/Pelvis Back: no CVA tenderness Thoracic/Lumbar Spine: thoracic and lumbar spine normal to inspection and No lumbar spinal tenderness Skin General skin exam: no rashes or lesions noted and dry skin Neuro General: oriented to person, oriented to place and oriented to time Cranial nerves: Yes CN's II-XII intact bilaterally and Yes Equal, round and reactive pupils present Speech: No Abnormal speech present Gait exam (Neuro): Normal gait present Motor exam (neuro): no tremor noted Deep tendon reflexes (DTR's): Right triceps reflex intensity grade: 2+, Left triceps reflex intensity grade: 2+, Rt Biceps (C5, C6): 2+, Left biceps reflex intensity grade: 2+, Right brachioradialis reflex intensity grade: 2+ and Left brachioradialis reflex intensity grade: 2+ Extrem Right upper extremity: full ROM Left upper extremity: full ROM Right lower extremity: full ROM; no edema Left lower extremity: full ROM; no edema Psych Mental Status: mental status grossly normal Speech and movement: Normal speech and movement present Affect: normal affect Attitude: cooperative Thought process: Normal thought process present Results Reviewed Results Reviewed: Laboratory Tests 11/15/24 11/15/24 15:54 15:56 WBC 9.1 RBC 4.06 L Hgb 12.3 Hct 35.4 L MCV 87.2 MCH 30.3 MCHC 34.7 RDW 12.7 Plt Count 274 Sodium 139 Potassium 4.4 Chloride 107 Carbon Dioxide 26 Anion Gap 10 L BUN 10 Creatinine 0.68 Estimated GFR > 60 Fasting Glucose 85 Calcium 9.0 Total Bilirubin 0.7 AST 25 ALT 29 Alkaline Phosphatase 81 C-React Prot High Sens 2.1 Total Protein 6.9 Albumin 4.7 Triglycerides 42 Cholesterol 161 LDL Cholesterol, Calc 71 HDL Cholesterol 82 Amylase 53 Lipase 13 Vitamin B1 11 Vitamin B12 513 25-OH Vitamin D Total 48.0 Folate 9.9 TSH 0.78 Urine Color Yellow Urine Appearance Clear Urine pH 6.5 Ur Specific [place] <= 1.005 Urine Protein Negative Urine Glucose (UA) Negative Urine Ketones Negative Urine Blood Negative Urine Nitrite Negative Ur Leukocyte Esterase Moderate (2+) H Urine RBC 0-2 Urine WBC 21-50 H Ur Squamous Epith Cells 3-5 Hyaline Casts 0-2 Coding Level of Care Code Est Pt Prev Care 18-39y(21507) Diagnoses Annual physical exam Z00.00 Panic attack F41.0 Depression, unspecified depression type F32.A Depression Type: unspecified Anxiety F41.9 Heart palpitations R00.2 Dysphagia, unspecified type R13.10 Dysphagia type: unspecified Exercise-induced asthma J45.990 Mood changes R45.86 Alcohol use F10.90 Smoker F17.200 Vitreous floaters of left eye H43.392 Laterality: left Anemia, unspecified type D64.9 Anemia type: unspecified type Abdominal pain, unspecified abdominal location R10.9 Abdominal location: unspecified location Heartburn R12 Time Spent (min) 37 Assessment & Plan Assessment & Plan (1) Annual physical exam: Code(s): Z00.00 - Encounter for general adult medical examination without abnormal findings Category: Medical Plan: Preventative guidelines and recent labs reviewed with the patient. Patient is due for Pap smear, gynecological referral has been placed. (2) Panic attack: Code(s): F41.0 - Panic disorder [episodic paroxysmal anxiety] Category: Medical Plan: The patient reports a history of anxiety that leads to panic attacks She is currently not on any treatment for this Encouraged CBT Hydroxyzine 25 mg b.i.d. p.r.n. ordered And Referral was placed a psychiatry She is currently seen Sarah Segundo, follow up with Psychiatry as scheduled (3) Depression: Code(s): F32.A - Depression, unspecified Category: Medical Qualifiers: Depression Type: unspecified Qualified Code(s): F32.A - Depression, unspecified Plan: Encouraged CBT Reports being placed on Zoloft a while back but stopped the medication within a week Psychiatry referral was placed and she has been seeing Sarah Segundo (4) Anxiety: Code(s): F41.9 - Anxiety disorder, unspecified Category: Medical Plan: Patient reports anxiety to the point of panic attacks Reports chest tightening and heart palpitation during these episodes The patient is currently not on any medication She reports smoking a packing every 2-3 days and drinking 6- 12 white cloud socially Hydroxyzine 25 mg b.i.d. p.r.n. ordered. The patient may repeat 1 dose of 25 mg. Psychiatry referral placed and CBT encouraged She is currently seen Sarah Segundo (5) Heart palpitations: Code(s): R00.2 - Palpitations Category: Medical Plan: Patient reports heart palpitation associated with laying on left side Reports at times feels like her heart is skipping beats 7 day Holter monitor was ordered but but does not seem to have been completed as yet (6) Dysphagia: Code(s): R13.10 - Dysphagia, unspecified Category: Medical Qualifiers: Dysphagia type: unspecified Qualified Code(s): R13.10 - Dysphagia, unspecified Plan: Patient reports feeling like something is stuck in her throat and it is difficulty to swallow intermittently Barium swallow was ordered but has not been completed as yet (7) Exercise-induced asthma: Code(s): J45.990 - Exercise induced bronchospasm Category: Medical Plan: Refilled albuterol sulfate 90 mcg/actuation 2 inhalation Q 4-6 hour p.r.n. (8) Mood changes: Code(s): R45.86 - Emotional lability Category: Medical Plan: Reports that at times she feels like she does not want to do anything. States that at other times her house is completely cleaned and she is very active. She reports that she does noticed some characteristics of bipolar disorder, particularly she describes ordering 2 cruises at once without the funds to pay for them. Her father had bipolar and also committed suicide. The patient is scared of depression medications due to the risk of suicide associated with these medications. The patient was referred to Psychiatry urgently. She is being monitored by Sarah Segundo Psych OB SCRUB TECH, who started her on Lamictal. The patient is up to 150 mg and reports that she started titrating this medication down due to intrusive thoughts. Reports that she has a an appointment with Sarah in 2 days and is planning to discuss this with her then. She denies SI/HI. (9) Alcohol use: Code(s): F10.90 - Alcohol use, unspecified, uncomplicated Category: Social Hx Plan: Encouraged cessation or decrease the number of drinks per sitting (10) Smoker: Code(s): F17.200 - Nicotine dependence, unspecified, uncomplicated Category: Social Hx Plan: Encouraged cessation (11) Floaters in visual field: Code(s): H43.399 - Other vitreous opacities, unspecified eye Category: Medical Qualifiers: Laterality: left Qualified Code(s): H43.392 - Other vitreous opacities, left eye Plan: Patient reports 2 spots of floaters in her left eyesight. She denies eye pain or lost of vision. Ophthalmology referral placed (12) Anemia: Code(s): D64.9 - Anemia, unspecified Category: Medical Qualifiers: Anemia type: unspecified type Qualified Code(s): D64.9 - Anemia, unspecified Plan: The patient's anemia is mild and not currently a significant concern. We will continue to monitor (13) Abdominal pain: Code(s): R10.9 - Unspecified abdominal pain Category: Medical Qualifiers: Abdominal location: unspecified location Qualified Code(s): R10.9 - Unspecified abdominal pain Plan: A limited abdominal ultrasound was ordered. Normal findings noted (14) Heartburn: Code(s): R12 - Heartburn Category: Medical Plan: Reinforced dietary restrictions Start omeprazole 40 mg daily x8 weeks Follow up for re-evaluation Orders: Referrals MOVIE ACTOR Referral Z01.419 - Encounter for gynecological examination (general) (routine) without abnormal findings Ophthalmology Referral H43.399 - Other vitreous opacities, unspecified eye Medications: New omeprazole 40 mg PO DAILY 30 caps 3RF
--- OUTSIDE RECORDS SUMMARY | 2025-01-04 12:47 | XMS_ITS | Clinical Summary ---
Author Organization [facility] [address] ity Address [address] [place] [address] Care Team Providers Care Egg Packer Name Role Phone ToryLydia miller Primary Care [...] Screening: P ap Smear 12/07/2020 12/07/2017, 12/07/2017 Depression Screening 04/13/2024 COVID-19 Vaccine ( - 2023-2 5 season) 2024 Influenza Vaccine (#1) 2024 01/04/2018 DTaP,Tdap,and Td Vaccines (2 - Td or Tdap) 03/23/2028 03/23/2018 RSV Immunization Adult Patients (1 - 1-dose 75+ series) 2069 HIB Vaccines Aged Out No longer eligi [...] RESULTING AGENCY - 12/10/2017 10:37 AM EDT [id number] RESULTS OF GEN-PROBE APTIMA COMBO 2 ASSAY CHLAMYDIA: NEGATIVE N. GONORRHOEAE: NEGATIVE RAJENDRA JUAREZ M.D., PATHOLOGIST (CASE ELECTRONICALLY SIGNED 12 10 2017) CLINICAL INFORMATION: Z12.4, Z34.81 Z34.81 ENCOUNTER FOR SUPERVISION OF OTHER NORMAL , FIRST TRIMESTER SOURCE: THINPREP PAP FOR CT/GC GROSS DESCRIPTION: THINPREP VIAL RECEIVED. PHYSICIANS LAUREEN MONTOYA/#/ Laureen Montoya [facility] CYTOLOGY ORDERABLES Final Result HISTORICAL TESTING LAB RESULTING AGENCY from Last 3 Months or Most Recently Relevant to Health Maintenance Care Teams Egg Packer Relationship Specialty Start Date End Date Lydia Fuentes DO PCP - General Internal Medicine 07/07/18
--- OUTSIDE RECORDS SUMMARY | 2025-01-04 12:48 | XMS_ITS | Clinical Summary ---
Author Organization [employer] Address [address] [place] [address] Care Team Providers Care Cutter And Presser Name Role Phone Unavailable Primary Care Provider [...] Pap Smear 12/27/2015 COVID-19 Vaccine ( season) 2024 04/03/2022, 05/12/2020, 04/21/2020 Influenza Vaccine (#1) 2024 9, 02/21/2015, 05/23/2013 Cervical Cancer Screening 2024 HPV/Cotest 2024 DTaP/Tdap/Td Vaccines (8 - Td or Tdap) [...] patient's age to complete this topic Insurance [place] [address] (O)
--- OUTSIDE RECORDS SUMMARY | 2025-01-04 12:48 | XMS_ITS | Encounter Summary ---
Author Organization [facility] Address [address] [place] [address] Phone Care Team Providers Care Lip Cutter Name Role Phone Lucy Nava MD Primary Care Provider Encounter Details Date Type Department Care Team (Late st Contact Info) Description 11/27/2016 Conversion Encounter [facility] [place] [address] [place] [address] Social History Tobacco Use Types Packs/Day Years [...] on filedocumented in this encounter Care Teams Lip Cutter Relationship Specialty Start Date End Date Lucy Nava MD [address] [place] [address] PCP - General 11/21/16 07/21/22 documented as of this encounter
--- OUTSIDE RECORDS SUMMARY | 2025-01-04 12:48 | XMS_ITS | Encounter Summary ---
Author Organization [facility] Address [address] [place] [address] Phone Care Team Providers Care Program Analyst Name Role Phone Lucy Nava MD Primary Care Provider Encounter Details Date Type Department Care Team (Late st Contact Info) Description 04/17/2011 Documentation [facility] [place] [facility] [place] [address] [place] [address] Family Medicine, Physician [address] [place], [place] [phone] Social History Tobacco Use Types Packs/Day Years [...] on filedocumented in this encounter Care Teams Program Analyst Relationship Specialty Start Date End Date Lucy Nava MD [address] [facility] [place] [address] PCP - General 11/21/16 07/21/22 documented as of this encounter
--- OUTSIDE RECORDS SUMMARY | 2025-01-04 12:48 | XMS_ITS | Encounter Summary ---
Author Organization [facility] Address [address] [place] [phone] Phone Care Team Providers Care Resource Conservation Specialist Name Role Phone Lucy Nava MD Primary Care Provider [phone] Encounter Details Date Type Department Care Team (Late st Contact Info) Description 07/29/2012 Documentation [facility] [place] Medicine [address] [place] [address] Family Medicine, Physician [address] [place], [place] [phone] Social History Tobacco Use Types Packs/Day Years [...] on filedocumented in this encounter Care Teams Resource Conservation Specialist Relationship Specialty Start Date End Date Lucy Nava MD [address] [facility] [place] [address] PCP - General 11/21/16 07/21/22 documented as of this encounter
--- OUTSIDE RECORDS SUMMARY | 2025-01-04 12:48 | XMS_ITS | Encounter Summary ---
Author Organization [facility] Address [address] [place] [address] Phone Care Team Providers Care Crimping Press Operator Name Role Phone Lucy Nava MD Primary Care Provider Encounter Details Date Type Department Care Team (Late st Contact Info) Description 07/30/2012 [place] [facility] [place] [address] [place] [address] Family Medicine, Physician [address] [place], [place] [phone] Social History Tobacco Use Types Packs/Day Years [...] on filedocumented in this encounter Care Teams Crimping Press Operator Relationship Specialty Start Date End Date Lucy Nava MD [address] [facility] [place] [address] PCP - General 11/21/16 07/21/22 documented as of this encounter
--- OUTSIDE RECORDS SUMMARY | 2025-01-04 12:48 | XMS_ITS | Clinical Summary ---
Author Organization [facility] Address [address] [place] [address] Phone Care Team Providers Care Actuarial Manager Name Role Phone Unavailable Primary Care Provider [...] 82 09/29/2013 12:00 AM EDT Temperature 36.4 C (97.6 F) 01/09/2014 12:00 AM EDT Respiratory Rate - - Oxygen Saturation - [...] 11/21/1998, Additional history exists Influenza Vaccines (#1) 2024 02/21/2015, 05/23 COVID-19 Vaccine ( season) 2024 Hepatitis B Vaccines Completed 08/11/1995, 02/10/1995, 01/10/1995 [...] complete this topic Procedures * Due to [place] law, this organization might not be sharing sensitive test results. Procedure Name Priority Date/Time Associated Diagnosis Comments CHLAMYDIA AND GONORRHEA, AMPLIFIED Routine 02/22/2015 2:14 PM EST from Last 3 Months or Most Recently Relevant to Health Maintenance Results * Due to [place] state law, this organization might not be [...] VALUE: NOT DETECTED) NOTE: This test uses unit control worker-mediated amplification method to detect rRNA from C.Trachomatis [...] without risk of sexual abuse. Consult the [facility] if needed. Contact phone number . Therapeutic failure or success cannot be determined with the Aptima Combo2 assay since nucleic acid may persist following appropriate antimicrobial therapy. The Centers for Disease Control and Prevention (CDC) recommends confirmatory retesting using culture or a different nucleic acid amplification test when positive results occur, if indicated. Testing performed or reported by [facility], a Service of [facility], [address] [place] [address] Ant Banegas MD, PhD, Case Operator 02/22/2015 2:14 PM EST Narrative [facility] - 02/22/2015 2:14 PM EST URINE CHLAMYDIA GC AMP PROBE us Luciana Marsh NP LAB MICROBIOLOGY - GENERAL ORDER ALE Final Result [facility] [address] [place] [address], from Last 3 Months or Most Recently Relevant to Health Maintenance
== END 2025-01-04 11:09 | disposition home or self-care (01) ==
LOC: HO.HMCH 10:21
DX: Z00.00 Encounter for general adult medical examination without abnormal findings (principal); F41.0 Panic disorder [episodic paroxysmal anxiety]; F32.A Depression, unspecified; F41.9 Anxiety disorder, unspecified; R00.2 Palpitations; R13.10 Dysphagia, unspecified; J45.990 Exercise induced bronchospasm; R45.86 Emotional lability; F10.90 Alcohol use, unspecified, uncomplicated; F17.200 Nicotine dependence, unspecified, uncomplicated; H43.392 Other vitreous opacities, left eye; D64.9 Anemia, unspecified; R10.9 Unspecified abdominal pain; R12 Heartburn

== ENCOUNTER 2025-01-05 09:28 | Outpatient (AMB) | payer OTHER, SELFPAY ==
--- NOTE | 2025-01-05 09:42 | MHC.OFFVISPS ---
Intake Intake Visit Reasons: follow up Product Safety And Standards Engineer Required: No Allergies No Known Allergies Allergy (Verified 01/04/25 10:47) Medication List - Last Reconciled 01/05/25 by Lucy Segundo APRN albuterol sulfate 90 mcg/actuation (Ventolin HFA) 2 inhalations inhalation Q4-6H PRN hydroxyzine HCl 25 mg PO BID PRN lamotrigine (Lamictal) 150 mg (1.5 x 100 mg) PO DAILY omeprazole 40 mg PO DAILY HPI- Psychiatric Chief Complaint: follow up HPI Narrative: pt seen for follow up re: anxiety, depression, ADHD and possible OCD. Pt reports that she felt good on 75mg of lamictal but once she got up over 100 mg she had intrusive negative and gory thoughts; she reduced the lamictal back to 50mg and feels better on it; there are some reports in literature of people with OCD having worsening intrusive obsessions on higher dose lamictal. Pt reports mood is stable on 50mg lamictal. she continues to have anxiety and adhd symptoms; she completed adult self report scale and scored positive for 15/18. Pts PHQ9=10 and her GAD7=17. She denies current SI or HI. We talked more about her symptoms and she does meet criteria for OCD and ADHD. She does not want to take an SSRI due to fears of SI. Her father committed suicide and she fears this. We talked about alternatives such as anafranil and or atypical antipsychotic. At this time she says her attention and focus are more troublesome to her and she would like to try ADHD medication. Agree to trial a very low dose of adderall XR and she will saty on lamictal 50mg daily Past Psychiatric History: out pt tx. No IPLOC. Family hx suicide Father hung himself in 2019. Past trial of zoloft negative Subjective Subjective Subjective Medication Compliance: Yes Side effects from medications: No Review of Systems Medical Review of Systems: unchanged Mental Status Exam Mental Status Exam Patient Appearance: Well Grooomed and Appropriate Patient Orientation: Person, Place, Time and Situation Level of Consciousness: Awake, Appropriate and Alert Patient Behavior: Appropriate, Cooperative and Good Eye Contact Mood Description: Appropriate and Anxious Affect Description: Appropriate and Anxious Patient Cognition Impaired: No Ability to Follow Directions: Good Speech Pattern: Clear, Appropriate and Coherent Memory Description: Intact Hallucinations: None Delusions: Not Present Thought Process: Intact and Goal Oriented Thought Content: positive for Intact and positive for Goal Oriented Judgement: Good Assessment and Plan Assessment & Plan (1) Generalized anxiety disorder with panic attacks: Status: Acute Code(s): F41.1 - Generalized anxiety disorder; F41.0 - Panic disorder [episodic paroxysmal anxiety] (2) ADHD (attention deficit hyperactivity disorder), combined type: Status: Acute Code(s): F90.2 - Attention-deficit hyperactivity disorder, combined type (3) Persistent mood [affective] disorder, unspecified: Status: Acute Code(s): F34.9 - Persistent mood [affective] disorder, unspecified (4) OCD (obsessive compulsive disorder): Status: Acute Qualifiers: Obsessive-compulsive disorder type: mixed obsessional thoughts and acts Qualified Code(s): F42.2 - Mixed obsessional thoughts and acts Code(s): F42.9 - Obsessive-compulsive disorder, unspecified Plan rule out Bipolar II lamictal 50mg daily trial adderall xr 5mg consider anafranil, trileptal or atypical antipsychotic Medications: New lamotrigine (Lamictal) 25 mg PO DAILY 30 tabs 0RF 30 days dextroamphetamine-amphetamine 5 mg ER (Adderall XR) Partial Fill upon patient request. 5 mg PO DAILY 30 caps 0RF F90.2 - Attention-deficit hyperactivity disorder, combined type Discontinued lamotrigine (Lamictal) Discontinued Reason: Doctor's Order 150 mg (1.5 x 100 mg) PO DAILY 135 tabs 1RF Counseling and coordination of Care Pt. Self Management counseling: Maintenance-social rhythm, Mod caffeine/ETOH intake, Nutrition education and improvement, General coping skills and Problem solving Medication management counseling: Effectiveness, Side effects, Dosing range, Duration, Drug interaction and Adherence Diagnosis and Prognosis Counseling: Accuracy of diagnosis, Prognosis over time, Impact of diagnosis on life functions, Impact of family relationship, Problematic behaviors secondary to diagnosis and Adequacy of current interventions Details: I spent 35 minutes reviewing the record, seeing the patient and documenting in the medical record. Counseling provided to the patient/caregiver as outlined below. Addressed patient/caregiver concerns regarding current medication regime including effective adherence. Addressed patient/caregiver concerns regarding diagnosis and prognosis including accuracy of diagnosis, prognosis over time, impact of diagnosis. Addressed patient/caregiver concerns regarding impact of recent stressors. [facility] Medical History (Updated 01/05/25 @ 14:24 by Lucy Segundo APRN) Exercise-induced asthma Heart palpitations Depression Panic attack Anxiety ACL tear Hx of ectopic Surgical History H/O section Family History Paternal Grandfather HTN (hypertension) Lymphoma Esophageal cancer Mother Alcoholism OCD (obsessive compulsive disorder) Bipolar 2 disorder Father No problems noted. 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 works FT [employer] Substance History: She reports alcohol use, consuming 6 to 12 white clouds in social settings, and acknowledges that it may be self-medication for anxiety. She also smokes approximately one pack of cigarettes every two to three days. Trauma History: father with severe bipolar do and suicided in 2019. Coding Level of Care Code Est Pt Level 4 (26231) Diagnoses Generalized anxiety disorder with panic attacks F41.1; F41.0 ADHD (attention deficit hyperactivity disorder), combined type F90.2 Persistent mood [affective] disorder, unspecified F34.9 Mixed obsessional thoughts and acts F42.2 Obsessive-compulsive disorder type: mixed obsessional thoughts and acts
== END 2025-01-05 10:44 | disposition home or self-care (01) ==
LOC: HO.HOP 09:28
PROVIDERS: Visit Provider Clinical Nurse Specialist Psychiatric/Mental Health
DX: F41.1 Generalized anxiety disorder (principal); F41.0 Panic disorder [episodic paroxysmal anxiety]; F90.2 Attention-deficit hyperactivity disorder, combined type; F34.9 Persistent mood [affective] disorder, unspecified; F42.2 Mixed obsessional thoughts and acts
CPT/HCPCS: 99214

== ENCOUNTER 2025-02-13 14:36 | Outpatient (AMB) | payer OTHER, SELFPAY ==
--- NOTE | 2025-02-13 14:36 | A.OFFPSYCH_ITS ---
Intake Intake Visit Reasons: f/u consultation Food Aide Required: No Allergies No Known Allergies Allergy (Verified 01/04/25 10:47) Medication List - Last Reconciled 02/13/25 by Lucy Segundo APRN albuterol sulfate 90 mcg/actuation (Ventolin HFA) 2 inhalations inhalation Q4-6H PRN dextroamphetamine-amphetamine 5 mg ER (Adderall XR) 5 mg PO DAILY hydroxyzine HCl 25 mg PO BID PRN lamotrigine (Lamictal) 50 mg (2 x 25 mg) PO DAILY 30 days omeprazole 40 mg PO DAILY HPI- Psychiatric Chief Complaint: f/u consultation HPI Narrative: pt seen for follow up re: anxiety, depression, ADHD and OCD. Pt reports that she is taking 75mg of lamictal and she feels calmer and less depressed on it. She reports the adderall xr 5mg helps her for approximately 3 hours and then wears off. She says while it is working she experiences less intrusive thoughts, better concentration and focus. Pts PHQ9=11 and her GAD7=10. She denies current SI or HI. We talked more about her symptoms and she does meet criteria for OCD and ADHD. She does not want to take an SSRI due to fears of SI. Her father committed suicide and she fears this. We talked about alternatives such as anafranil and or atypical antipsychotic. At this time she says her attention and focus are more troublesome to her and she would like to try ADHD medication. We discussed increasing the adderall XR by 5 mg increments until she can get up to 7 hours coverage if no side effects. Past Psychiatric History: out pt tx. No IPLOC. Family hx suicide Father hung himself in 2019. Past trial of zoloft negative Subjective Subjective Medication Compliance: Yes Side effects from medications: No Review of Systems Medical Review of Systems: unchanged Mental Status Exam Mental Status Exam Patient Appearance: Well Grooomed and Appropriate Patient Orientation: Person, Place, Time and Situation Level of Consciousness: Awake, Appropriate and Alert Patient Behavior: Appropriate, Cooperative and Good Eye Contact Mood Description: Appropriate, Constricted, Anxious and Sad Affect Description: Appropriate, Constricted, Anxious and Sad Patient Cognition Impaired: No Ability to Follow Directions: Good Speech Pattern: Clear, Appropriate and Coherent Memory Description: Intact Hallucinations: None Delusions: Not Present Thought Process: Intact and Goal Oriented Thought Content: positive for Intact and positive for Goal Oriented Judgement: Good Assessment and Plan Assessment & Plan (1) Generalized anxiety disorder with panic attacks: Status: Acute Code(s): F41.1 - Generalized anxiety disorder; F41.0 - Panic disorder [episodic paroxysmal anxiety] (2) ADHD (attention deficit hyperactivity disorder), combined type: Status: Acute Code(s): F90.2 - Attention-deficit hyperactivity disorder, combined type (3) OCD (obsessive compulsive disorder): Status: Acute Qualifiers: Obsessive-compulsive disorder type: mixed obsessional thoughts and acts Qualified Code(s): F42.2 - Mixed obsessional thoughts and acts Code(s): F42.9 - Obsessive-compulsive disorder, unspecified Plan lamictal 75mg daily Increase adderall xr to 10mg may increase by 5mg increments until 7 hour coverage as long as no side effects consider anafranil, trileptal or atypical antipsychotic if needed Medications: New dextroamphetamine-amphetamine 10 mg ER (Adderall XR) Partial Fill upon patient request. 10 mg PO QAM 30 caps 0RF Counseling and coordination of Care Pt. Self Management counseling: Maintenance-social rhythm, Mod caffeine/ETOH intake, Nutrition education and improvement, General coping skills and Problem solving Medication management counseling: Effectiveness, Side effects, Dosing range, Duration, Drug interaction and Adherence Diagnosis and Prognosis Counseling: Accuracy of diagnosis, Prognosis over time, Impact of diagnosis on life functions, Impact of family relationship, Problematic behaviors secondary to diagnosis and Adequacy of current interventions Details: I spent 35 minutes reviewing the record, seeing the patient and documenting in the medical record. Counseling provided to the patient/caregiver as outlined below. Addressed patient/caregiver concerns regarding current medication regime including effective adherence. Addressed patient/caregiver concerns regarding diagnosis and prognosis including accuracy of diagnosis, prognosis over time, impact of diagnosis. Addressed patient/caregiver concerns regarding impact of recent stressors. [facility] Medical History (Updated 01/05/25 @ 14:24 by Lucy Segundo APRN) Exercise-induced asthma Heart palpitations Depression Panic attack Anxiety ACL tear Hx of ectopic Surgical History H/O section Family History Paternal Grandfather HTN (hypertension) Lymphoma Esophageal cancer Mother Alcoholism OCD (obsessive compulsive disorder) Bipolar 2 disorder Father No problems noted. 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 works FT [employer] Substance History: She reports alcohol use, consuming 6 to 12 white clouds in social settings, and acknowledges that it may be self-medication for anxiety. She also smokes approximately one pack of cigarettes every two to three days. Trauma History: father with severe bipolar do and suicided in 2019. Coding Level of Care Code Est Pt Level 4 (60450) Diagnoses Generalized anxiety disorder with panic attacks F41.1; F41.0 ADHD (attention deficit hyperactivity disorder), combined type F90.2 Mixed obsessional thoughts and acts F42.2 Obsessive-compulsive disorder type: mixed obsessional thoughts and acts
== END 2025-02-13 15:13 | disposition home or self-care (01) ==
LOC: HO.HOP 14:36
PROVIDERS: Visit Provider Clinical Nurse Specialist Psychiatric/Mental Health
DX: F41.1 Generalized anxiety disorder (principal); F41.0 Panic disorder [episodic paroxysmal anxiety]; F90.2 Attention-deficit hyperactivity disorder, combined type; F42.2 Mixed obsessional thoughts and acts
CPT/HCPCS: 99214

== ENCOUNTER → 2025-02-24 13:25 | Outpatient (REF) | payer OTHER, SELFPAY ==
--- NOTE | 2025-02-24 13:29 | HM_ITS ---
* Total monitoring time 6 days and 15 hours. * Underlying rhythm is sinus with an average rate of 83/Min. * Rare ventricular ectopy. Rare couplets. One episode of 5 beats, monomorphic. * No significant pauses or high-grade AV blocks. * Patient markers associated with ventricular ectopy. * No diary events. MTDD
--- OUTSIDE RECORDS SUMMARY | 2025-02-24 19:45 | XMS_ITS | Clinical Summary ---
Author Organization [facility] Address [address] [place] [address] Care Team Providers Care Dye Range Operator Name Role Phone Lydia Fuentes Primary Care Pro vider Medical History Medical [...] Screening: P ap Smear 12/07/2020 12/07/2017, 12/07/2017 HPV Vaccines (1 - 3-dose SCD M series) 2021 Depression Screening 04/13/2024 COVID-19 Vaccine ( - 2024-2 6 season) 2024 Influenza Vaccine (#1) 2024 01/04/2018 [...] RESULTING AGENCY - 12/10/2017 10:37 AM EDT [id number] RESULTS OF GEN-PROBE APTIMA COMBO 2 ASSAY CHLAMYDIA: NEGATIVE N. GONORRHOEAE: NEGATIVE RAJENDRA JUAREZ M.D., PATHOLOGIST (CASE ELECTRONICALLY SIGNED 12 10 2017) CLINICAL INFORMATION: Z12.4, Z34.81 Z34.81 ENCOUNTER FOR SUPERVISION OF OTHER NORMAL , FIRST TRIMESTER SOURCE: THINPREP PAP FOR CT/GC GROSS DESCRIPTION: THINPREP VIAL RECEIVED. PHYSICIANS LAUREEN MONTOYA/#/ Laureen Montoya [facility] LAB CYTOLOGY ORDERABLES Final Result HISTORICAL TESTING LAB RESULTING AGENCY from Last 3 Months or Most Recently Relevant to Health Maintenance Care Teams Dye Range Operator Relationship Specialty Start Date End Date Lydia Fuentes DO PCP - General Internal Medicine 07/07/18
--- OUTSIDE RECORDS SUMMARY | 2025-02-24 19:45 | XMS_ITS | Encounter Summary ---
Author Organization [facility] Address [address] [place] [address] Phone Care Team Providers Care Archery Equipment Repairer Name Role Phone Lucy Nava MD Primary Care Provider Encounter Details Date Type Department Care Team (Late st Contact Info) Description 04/17/2011 Documentation [facility] [place] [address] [place] [address] Family Medicine, Physician [address] [place], [place] [phone] Social History Tobacco Use Types Packs/Day Years [...] on filedocumented in this encounter Care Teams Archery Equipment Repairer Relationship Specialty Start Date End Date Lucy Nava MD [address] [facility] [place] [address] PCP - General 11/21/16 07/21/22 documented as of this encounter
--- OUTSIDE RECORDS SUMMARY | 2025-02-24 19:46 | XMS_ITS | Encounter Summary ---
Author Organization [facility] Address [address] [place] [address] Phone Care Team Providers Care Cable Testers Helper Name Role Phone Lucy Nava MD Primary Care Provider Encounter Details Date Type Department Care Team (Late st Contact Info) Description 07/30/2012 Documentation [facility] [place] [address] [place] [address] Family Medicine, Physician [address] [place], [place] [phone] Social History Tobacco Use Types Packs/Day Years [...] on filedocumented in this encounter Care Teams Cable Testers Helper Relationship Specialty Start Date End Date Lucy Nava MD [address] [facility] [place] [address] PCP - General 11/21/16 07/21/22 documented as of this encounter
--- OUTSIDE RECORDS SUMMARY | 2025-02-24 19:46 | XMS_ITS | Encounter Summary ---
Author Organization [facility] Address [address] [place] [address] Phone Care Team Providers Care Valve Grinder Name Role Phone Lucy Nava MD Primary Care Provider Encounter Details Date Type Department Care Team (Late st Contact Info) Description 11/27/2016 Conversion Encounter [facility] [place] [address] [place] [address] Social History Tobacco Use Types Packs/Day Years [...] on filedocumented in this encounter Care Teams Valve Grinder Relationship Specialty Start Date End Date Lucy Nava MD [address] [place] [address] PCP - General 11/21/16 07/21/22 documented as of this encounter
--- OUTSIDE RECORDS SUMMARY | 2025-02-24 19:46 | XMS_ITS | Clinical Summary ---
Author Organization [facility] Address [address] [place] [address] Phone Care Team Providers Care Tag Machine Operator Name Role Phone Unavailable Primary Care [...] complete this topic Procedures * Due to [place] [employer] law, this organization might not be sharing sensitive test results. Procedure Name Priority Date/Time Associated Diagnosis Comments CHLAMYDIA AND GONORRHEA, AMPLIFIED Routine 02/22/2015 2:14 PM EST from Last 3 Months or Most Recently Relevant to Health Maintenance Results * Due to [place] state law, this organization might not be sharing sensitive test results. * Chlamydia and Gonorrhoea, Amplified (02/22/2015 2:14 PM EST) URINE CHLAMYDIA AMP PROBE NEGATIVE [facility] Comment: No Chlamydia Trachomatis RNA detected in this patient's sample (REFERENCE RANGE/NORMAL VALUE: NOT DETECTED) URINE GC AMP PROBE NEGATIVE [facility] Comment: No Neisseria Gonorrhoeae RNA detected in this patient's sample (REFERENCE RANGE/NORMAL VALUE: NOT DETECTED) NOTE: This test uses top collar maker-mediated amplification method to detect rRNA from C.Trachomatis [...] without risk of sexual abuse. Consult the [facility] if needed. Contact phone number . Therapeutic failure or success cannot be determined with the Aptima Combo2 assay since nucleic acid may persist following appropriate antimicrobial therapy. The Centers for Disease Control and Prevention (CDC) recommends confirmatory retesting using culture or a different nucleic acid amplification test when positive results occur, if indicated. Testing performed or reported by [facility], a Service of [facility], [address] [place] [address] Ant Banegas MD, PhD, Slab Lifting Supervisor 02/22/2015 2:14 PM EST Narrative [facility] - 02/22/2015 2:14 PM EST URINE CHLAMYDIA GC AMP PROBE us Luciana Marsh NP LAB MICROBIOLOGY - GENERAL ORDER ALE Final Result [facility] [address] [place] [address], from Last 3 Months or Most Recently Relevant to Health Maintenance
--- OUTSIDE RECORDS SUMMARY | 2025-02-24 19:46 | XMS_ITS | Encounter Summary ---
Author Organization [facility] Address [address] [place] [address] Phone Care Team Providers Care Manager Interface Name Role Phone Lucy Nava MD Primary Care Provider Encounter Details Date Type Department Care Team (Late st Contact Info) Description 07/29/2012 Documentation [facility] [place] Family Medicine [address] [place] [address] Family Medicine, Physician [address] [place], [place] [phone] Social History Tobacco Use Types Packs/Day Years [...] on filedocumented in this encounter Care Teams Manager Interface Relationship Specialty Start Date End Date Lucy Nava MD [address] [facility] [place] [address] PCP - General 11/21/16 07/21/22 documented as of this encounter
== END ==
LOC: HO.CARD 13:25
DX: R00.2 Palpitations (principal)
CPT/HCPCS: 93242

== ENCOUNTER → 2025-02-24 13:29 | Outpatient (BNV) | payer OTHER, SELFPAY | PROVIDERS: Visit Provider Internal Medicine | DX: I49.3 Ventricular premature depolarization (principal) | CPT/HCPCS: 93244 ==

== ENCOUNTER 2025-03-01 14:23 | Outpatient (AMB) | payer OTHER, SELFPAY ==
[2025-03-01 14:39] VITALS: BP 110/64; PULSE 86; RESP 18; O2SAT 100; BMI 28.9
--- NOTE | 2025-03-01 14:39 | MHC.PC.OV ---
Vital Signs 03/01/25 14:39 Height 5 ft 6 in Weight 179 lb BMI 28.9 BP 110/64 Blood Pressure Location Lt brachial Position Sitting Respiration 18 Pulse 86 Pulse Source Pulse Oximeter Temp Source Temporal Artery Scan Pulse Oximetry (%) 100 Oxygen Delivery Method Room Air Intake Visit Reasons: epigastric pain Store Host Required: No Accompanied by: Self / Same As Patient Allergies No Known Allergies Allergy (Verified 03/01/25 14:54) Medication List - Last Reconciled 03/01/25 by ZACHARIAH Ceron albuterol sulfate 90 mcg/actuation (Ventolin HFA) 2 inhalations inhalation Q4-6H PRN dextroamphetamine-amphetamine 10 mg ER (Adderall XR) 10 mg PO QAM dextroamphetamine-amphetamine 5 mg ER (Adderall XR) 5 mg PO DAILY hydroxyzine HCl 25 mg PO BID PRN lamotrigine (Lamictal) 50 mg (2 x 25 mg) PO DAILY 30 days omeprazole 40 mg PO DAILY Tobacco use date assessed: 03/01/25 Dental Screening Dental Screen Date: 03/01/25 Did you have a dental visit in the last 12 months?: No Did you have a dental problem in the last 6 months where you did not have access to dental care?: No Was dental information given to patient?: No HPI HPI Comments History of Present Illness Details The patient is a 29-year-old female presenting for follow-up of gastrointestinal symptoms. She reports her stomach symptoms have significantly improved with medication, though she occasionally experiences breakthrough symptoms if she eats something that aggravates her condition. She has a history of severe heartburn that can cause chest pain mimicking a heart attack. Currently taking omeprazole 40 mg daily-Will have the patient stop this medication two weeks before follow-up appointment to see if the symptom of heartburn return. Consider referring the patient to GI for EGD The patient also reports experiencing palpitations and is currently wearing a heart monitor. She notes pain on one side of her chest and back, which she believes is related to stress and posture. A swallow study is scheduled for next week. Regarding her social history, the patient reports that her anxiety has improved and she has stopped consuming alcohol. Health Maintenance - The patient has a swallow study scheduled for next week. - Patient has ceased alcohol consumption, which has helped with her anxiety. - For musculoskeletal pain and stress, self-care measures such as massage and heated pads were discussed. Social History - Substance Use: The patient reports she has stopped drinking alcohol. - Functional Status: The patient reports being busy and does not have time for therapy. Results - Tests: An ultrasound was previously performed. [facility] Medical History Exercise-induced asthma Heart palpitations Depression Panic attack Anxiety ACL tear Hx of ectopic Surgical History H/O section Family History Paternal Grandfather HTN (hypertension) Lymphoma Esophageal cancer Mother Alcoholism OCD (obsessive compulsive disorder) Bipolar 2 disorder Father No problems noted. 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 1. Little interest or pleasure in doing things: several days 2. Feeling down, depressed, or hopeless: several days 3. Trouble falling or staying asleep, or sleeping too much: several days 4. Feeling tired or having little energy: several days 5. Poor appetite or overeating: several days 6. Feeling bad about yourself - or that you are a failure or have let yourself or your family down: several days 7. Trouble concentrating on things, such as reading the newspaper or watching television: several days 8. Moving or speaking so slowly that other people could have noticed. Or the opposite - being so fidgety or restless that you have been moving around a lot more than usual: not at all 9. Thoughts that you would be better off or of hurting yourself in some way: not at all Total score: 7 Source: Developed by Drs. Librado Cantrell, Edwige Zaman, Ananda Tavarez and colleagues, with an educational layla from [employer]. Thrive Questionnaire Date Thrive assessed: 03/01/25 I am a: Patient What is your living situation today?: I have a steady place to live Within the past 12 months, did the food you bought not last and you didn't have the money to get more?: Never true Within the past 12 months, did you worry whether your food would run out before you got money to buy more?: Never true Do you have trouble paying for medicines?: No Do you have trouble getting transportation to medical appointments?: No Do you have trouble paying your heating and electricity bill?: No Do you have trouble taking care of your child, family member or friend?: No Do you have trouble with day-to-day activities such as bathing, preparing meals, shopping, managing finances, etc.?: No Are you currently unemployed and looking for a job?: No Are you interested in more education?: No Please select the resources that you would like help with: None Currently or been in a relationship where the following occur: No concerns reported THRIVE Score: 0 AUDIT C Alcohol Use Questionnaire (AUDIT-C) 1. How often do you have a drink containing alcohol?: 2-3 times a week 2. How many drinks containing alcohol do you have on a typical day when you are drinking?: 5 or 6 3. How often do you have six or more drinks on one occasion?: Monthly Total Score: 7 JACINDA-7 AMB Questionnaire JACINDA-7 Date JACINDA - 7 assessed: 11/09/24 Feeling nervous, anxious, or on edge: 2 = More than half the days Not being able to stop or control worryin = Nearly every day Worrying too much about different things: 3 = Nearly every day Trouble relaxin = Nearly every day Being so restless that it is hard to sit still: 2 = More than half the days Becoming easily annoyed or irritable: 1 = Several days Feeling afraid as if something awful might happen: 3 = Nearly every day Total JACINDA-7 score (0-4 normal; 5-9 mild; 10-14 moderate; 15-21 severe): 17 Source: Developed by Drs. Librado Cantrell, EdwigeAnanda Robison and colleagues, with an educational layla from [employer]. Review of Systems Narrative Review of Systems - Gastrointestinal: Reports significant improvement in stomach pain, with occasional breakthrough symptoms aggravated by food. - History of severe heartburn symptoms. - Cardiovascular: Reports palpitations. - Denies symptoms concerning for a heart attack. - Musculoskeletal: Reports pain on one side of chest/back, attributed to stress and posture. - Psychiatric: Reports history of anxiety, which has improved. Const Denies headache(s) Eyes Denies loss of vision and Reports spots in vision (Floaters in left eye) ENT Denies vertigo, Denies dizziness, Denies headache(s) and Denies sore throat Card Reports chest pain (Right side of chest), Denies leg edema and Denies lightheadedness Resp Denies cough, Denies hemoptysis and Denies wheezing GI Denies abdominal pain, Denies melena, Denies constipation, Reports heartburn (Depending on what she eats), Denies diarrhea and Denies vomiting Denies urinary frequency, Denies dysuria and Denies urinary urgency Musc Denies arthralgias, Denies joint swelling, Denies numbness and Denies tingling Neuro Denies Abnormal speech present, Denies behavioral changes, Denies vertigo, Denies dizziness, Denies headache(s), Denies loss of vision, Denies memory loss, Denies numbness and Denies tingling Psych Reports anxiety, Denies behavioral changes, Reports depression, Denies memory loss and Reports panic attacks Zacarias/Lymph Denies easy bleeding and Denies easy bruising Aller/Immun Denies wheezing Physical exam (Primary Care) Vital Signs: Last Vital Signs Pulse 86 03/01/25 14:39 Resp 18 03/01/25 14:39 BP 110/64 03/01/25 14:39 Pulse Ox 100 03/01/25 14:39 Oxygen Delivery Method Room Air 03/01/25 14:39 BMI result Body Mass Index 28.9 Tobacco/Smoking Status: Tobacco use Status Tobacco use date assessed 03/01/25 03/01/25 14:49 Patient Tobacco Use Status Former Tobacco user 03/01/25 14:49 Tobacco use type Cigarette 03/01/25 14:49 e-Cigarette/Vaping Use Never Used 03/01/25 14:49 PHQ-9: PHQ-9 Score PHQ-9: Total score 7 03/01/25 15:07 Thrive Assessment: Date of Thrive Assessment Date Thrive assessed 03/01/25 03/01/25 14:49 Currently or been in a relationship where the following occur: No concerns reported Narrative Physical Exam - Cardiovascular: Heart auscultated. - Respiratory: Lungs clear to auscultation bilaterally. Const General: healthy appearing, no acute distress, alert and awake Nutritional Appearance: well nourished Orientation/consciousness: oriented to person, oriented to place and oriented to time HENMT Ears: TM's normal bilaterally General nose exam: Normal nasal mucous membranes and turbinates present Eyes Conjunctivae: conjunctivae normal Sclerae: sclerae normal Pupils: Equal, round and reactive pupils present Neck Neck: Yes no lymphadenopathy and Yes no JVD Thyroid: Thyroid normal Carotids: no bruits Resp Effort & Inspection: normal respiratory effort and not tachypneic Auscultation: no crackles, no rales, no rhonchi and no wheezes Cardio Rate: regular rate Rhythm: regular rhythm Heart sounds: no murmurs and normal S1 and S2 GI Palpation (GI): Soft to palpation, nontender, no hepatomegaly and no splenomegaly Auscultation: normal bowel sounds General: Yes no CVA tenderness Back/Spine/Pelvis Back: no CVA tenderness Thoracic/Lumbar Spine: thoracic and lumbar spine normal to inspection and No lumbar spinal tenderness Skin General skin exam: no rashes or lesions noted and dry skin Neuro General: oriented to person, oriented to place and oriented to time Cranial nerves: Yes CN's II-XII intact bilaterally and Yes Equal, round and reactive pupils present Speech: No Abnormal speech present Gait exam (Neuro): Normal gait present Motor exam (neuro): no tremor noted Extrem Right upper extremity: full ROM Left upper extremity: full ROM Right lower extremity: full ROM; no edema Left lower extremity: full ROM; no edema Psych Mental Status: mental status grossly normal Speech and movement: Normal speech and movement present Affect: normal affect Attitude: cooperative Thought process: Normal thought process present Coding Level of Care Code Est Pt Level 4 (84312) Diagnoses Depression, unspecified depression type F32.A Depression Type: unspecified Anxiety F41.9 Mixed obsessional thoughts and acts F42.2 Obsessive-compulsive disorder type: mixed obsessional thoughts and acts Heartburn R12 Dysphagia, unspecified type R13.10 Dysphagia type: unspecified Alcohol use F10.90 Mood changes R45.86 Heart palpitations R00.2 Chest pain, unspecified type R07.9 Chest pain type: unspecified Time Spent (min) 36 Assessment & Plan Assessment & Plan (1) Depression: Code(s): F32.A - Depression, unspecified Category: Medical Qualifiers: Depression Type: unspecified Qualified Code(s): F32.A - Depression, unspecified (2) Anxiety: Code(s): F41.9 - Anxiety disorder, unspecified Category: Medical (3) OCD (obsessive compulsive disorder): Code(s): F42.9 - Obsessive-compulsive disorder, unspecified Category: Medical Qualifiers: Obsessive-compulsive disorder type: mixed obsessional thoughts and acts Qualified Code(s): F42.2 - Mixed obsessional thoughts and acts (4) Heartburn: Code(s): R12 - Heartburn Category: Medical (5) Dysphagia: Code(s): R13.10 - Dysphagia, unspecified Category: Medical Qualifiers: Dysphagia type: unspecified Qualified Code(s): R13.10 - Dysphagia, unspecified (6) Alcohol use: Code(s): F10.90 - Alcohol use, unspecified, uncomplicated Category: Social Hx (7) Mood changes: Code(s): R45.86 - Emotional lability Category: Medical (8) Heart palpitations: Code(s): R00.2 - Palpitations Category: Medical (9) Chest pain: Code(s): R07.9 - Chest pain, unspecified Category: Medical Qualifiers: Chest pain type: unspecified Qualified Code(s): R07.9 - Chest pain, unspecified Plan Plan Patient was informed and verbally consented to the use of an ambient scribe for clinic note documentation during this visit. 1. Gastroesophageal Reflux Disease The patient's GERD symptoms have improved significantly with omeprazole. The plan is to continue the current medication through the holidays to prevent symptom flare. In April, the patient will attempt to stop the medication for two weeks to assess for symptom recurrence. If symptoms return, she is to restart the medication and will be referred to a residential driver for further evaluation, possibly to assess for cellular changes in the esophagus due to chronic reflux. She has a swallow study scheduled for next week. 2. Musculoskeletal Pain The patient's chest and back pain is thought to be musculoskeletal in origin, likely secondary to stress and posture. The patient was advised on self-care measures, including massage therapy and the use of a heated pad, to help alleviate the discomfort. 3. Palpitations The patient's palpitations are thought to be secondary to anxiety related to her chest symptoms. She is currently undergoing cardiac monitoring and was reminded to use the event recorder when symptoms occur. 4. Anxiety The patient reports her anxiety is improving, and she has stopped drinking alcohol. Her medication management for anxiety is being handled by another provider, and she will return to primary care once her regimen is stable. The patient declined therapy, citing a lack of time. Discussion Notes I confirmed with the patient that her stomach symptoms have significantly improved on her current medication. We discussed a plan to continue the medication through the holiday season and then attempt a two-week trial period off the medication in April to assess for recurrence. I explained that if her heartburn returns, she should restart the medication and inform me, at which point a referral to a residential driver would be made for further evaluation. I informed her that chronic acid reflux can lead to changes in the esophageal lining over time. We also discussed her chest and back pain, which I believe is musculoskeletal and related to stress and posture. I advised her that while this is the likely cause, it is always important to first consider more serious conditions that can cause chest pain. The patient is scheduled for a follow-up in three months, but I advised her to call for a sick appointment if needed sooner, assuring her she can be seen by another provider if my schedule is full. Patient Instructions - Continue taking your stomach medication (omeprazole) as you have been. - In April, after the holidays, stop taking the medication for two weeks. - If your stomach pain or heartburn returns during those two weeks, start taking the medication again and call our office to let us know. - Please attend your scheduled swallow study next week. - For the pain in your chest and back area, you can use a heated pad or get a massage for relief. - If you feel palpitations, remember to press the event button on your heart monitor. - We have scheduled a follow-up appointment in three months. - If you need to be seen sooner, please call our office to schedule a sick visit.
--- OUTSIDE RECORDS SUMMARY | 2025-03-02 02:53 | XMS_ITS | Clinical Summary ---
Author Organization [employer] Address [address] [facility] [address] [place] [address] Care Team Providers Care Relationship Advisor Name Role Phone Unavailable Primary Care [...] patient's age to complete this topic Insurance [address] [address] (O)
--- OUTSIDE RECORDS SUMMARY | 2025-03-02 02:53 | XMS_ITS | Encounter Summary ---
Author Organization [facility] Address [address] [place] [address] Phone Care Team Providers Care Circular Stuffer Name Role Phone Lucy Nava MD Primary Care Provider Encounter Details Date Type Department Care Team (Late st Contact Info) Description 11/27/2016 Conversion Encounter [facility] [place] [address] [place] [address] Social History Tobacco Use Types Packs/Day Years [...] on filedocumented in this encounter Care Teams Circular Stuffer Relationship Specialty Start Date End Date Lucy Nava MD [address] [place] [address] PCP - General 11/21/16 07/21/22 documented as of this encounter
--- OUTSIDE RECORDS SUMMARY | 2025-03-02 02:53 | XMS_ITS | Encounter Summary ---
Author Organization [facility] Address [address] [place] [phone] Phone Care Team Providers Care Associate Civil Engineer Name Role Phone Lucy Nava MD Primary Care Provider Encounter Details Date Type Department Care Team (Late st Contact Info) Description 07/29/2012 Documentation [facility] [place] [address] [place] [address] Family Medicine, Physician [address] [place], [place] [phone] Social History Tobacco Use Types Packs/Day Years [...] on filedocumented in this encounter Care Teams Associate Civil Engineer Relationship Specialty Start Date End Date Lucy Nava MD [address] [facility] [place] [address] PCP - General 11/21/16 07/21/22 documented as of this encounter
--- OUTSIDE RECORDS SUMMARY | 2025-03-02 02:53 | XMS_ITS | Encounter Summary ---
Author Organization [facility] Address [address] [place] [phone] Phone Care Team Providers Care Senior Energy Market Coordinator Name Role Phone Lucy Nava MD Primary Care Provider [phone] Encounter Details Date Type Department Care Team (Late st Contact Info) Description 07/30/2012 Documentation [facility] [place] Family Medicine [address] [place] [address] Family Medicine, Physician [address] [place], [place] [phone] Social History Tobacco Use Types Packs/Day Years [...] on filedocumented in this encounter Care Teams Senior Energy Market Coordinator Relationship Specialty Start Date End Date Lucy Nava MD [address] [facility] [place] [address] PCP - General 11/21/16 07/21/22 documented as of this encounter
--- OUTSIDE RECORDS SUMMARY | 2025-03-02 02:53 | XMS_ITS | Encounter Summary ---
Author Organization [facility] Address [address] [place] [address] Phone Care Team Providers Care Biomass Plant Manager Name Role Phone Lucy Nava MD Primary Care Provider Encounter Details Date Type Department Care Team (Late st Contact Info) Description 04/17/2011 Documentation [facility] [place] Family Medicine [address] [place] [address] Family Medicine, Physician [address] [place], [place] [phone] Social History Tobacco Use Types Packs/Day Years [...] on filedocumented in this encounter Care Teams Biomass Plant Manager Relationship Specialty Start Date End Date Lucy Nava MD [address] [facility] [place] [address] PCP - General 11/21/16 07/21/22 documented as of this encounter
--- OUTSIDE RECORDS SUMMARY | 2025-03-02 02:53 | XMS_ITS | Clinical Summary ---
Author Organization [facility] Address [address] [place] [address] Phone Care Team Providers Care Oil Refinery Operator Name Role Phone Unavailable Primary Care [...] complete this topic Procedures * Due to [place] [employer] law, this organization might not be sharing sensitive test results. Procedure Name Priority Date/Time Associated Diagnosis Comments CHLAMYDIA AND GONORRHEA, AMPLIFIED Routine 02/22/2015 2:14 PM EST from Last 3 Months or Most Recently Relevant to Health Maintenance Results * Due to [place] state law, this organization might not be [...] VALUE: NOT DETECTED) NOTE: This test uses analytical engineer-mediated amplification method to detect rRNA from C.Trachomatis [...] without risk of sexual abuse. Consult the [facility] if needed. Contact phone number . Therapeutic failure or success cannot be determined with the Aptima Combo2 assay since nucleic acid may persist following appropriate antimicrobial therapy. The Centers for Disease Control and Prevention (CDC) recommends confirmatory retesting using culture or a different nucleic acid amplification test when positive results occur, if indicated. Testing performed or reported by [facility], a Service of [facility], [address] [place] [address] Ant Banegas MD, PhD, Draughtsman 02/22/2015 2:14 PM EST Narrative [facility] - 02/22/2015 2:14 PM EST URINE CHLAMYDIA GC AMP PROBE us Luciana Marsh NP LAB MICROBIOLOGY - GENERAL ORDER ALE Final Result [facility] [address] [place] [address], from Last 3 Months or Most Recently Relevant to Health Maintenance
== END 2025-03-01 15:10 | disposition home or self-care (01) ==
LOC: HO.HMCH 14:24
DX: F32.A Depression, unspecified (principal); F41.9 Anxiety disorder, unspecified; F42.2 Mixed obsessional thoughts and acts; R12 Heartburn; R13.10 Dysphagia, unspecified; F10.90 Alcohol use, unspecified, uncomplicated; R45.86 Emotional lability; R00.2 Palpitations; R07.9 Chest pain, unspecified

== ENCOUNTER 2025-03-17 20:13 | Emergency (ER) | payer OTHER, SELFPAY ==
[2025-03-17 20:19] VITALS: BP 144/101; PULSE 125; RESP 24; TEMP 36.7; O2SAT 100; BMI 29.7
[2025-03-17 21:56] LABS: MANUAL DIFF FLAG NO
[2025-03-17 21:58] LABS: Hematocrit 36.3 % (37.0-47.0); Hemoglobin 12.5 g/dl (12.0-16.0); Imm Gran Abs Auto 0.04 X10*3/uL (0.00-0.03); Imm Gran Pct Auto 0.4 % (0.0-0.4); Lymphocytes Absolute Auto 2.2 X10*3/uL (1.2-4.9); Mean Corpuscular HGB Conc 34.4 g/dl (31.0-35.0); Mean Corpuscular Hemoglobin 29.7 pg (27.0-33.0); Mean Corpuscular Volume 86.2 fL (80.0-98.0); NRBC Abs Auto 0.000 X10*3/uL (0.0-0.012); NRBC Pct Auto 0.0 /100WBC (0.0-0.2); Platelet Count 298 X10*3/uL (160-400); Red Blood Count 4.21 X10*6/uL (4.20-5.50); White Blood Count 10.5 X10*3/uL (4.8-10.8)
[2025-03-17 21:59] LABS: Appearance Urine Cloudy; Glucose Urine UA Negative (Negative); PH 7.5 (5.0-9.0); Specific Gravity - Urine 1.020 (1.005-1.025); UMIC TRIGGER UACC YES
[2025-03-17 22:16] LABS: Alanine Aminotransferase 18 U/L (0-31); Albumin Level 4.6 g/dL (3.5-5.0); Alkaline Phosphatase 84 U/L (39-117); Anion Gap 9 (12-20); Aspartate Amino Transferase 16 U/L (5-31); Blood Urea Nitrogen 11 mg/dL (9-16); Calcium 8.6 mg/dL (8.4-10.2); Carbon Dioxide 23 mmol/L (22-29); Chloride 111 mmol/L (96-108); Creatinine Clr Calc Pharmacy 113.3; Estimated Glomerular Filt Rate > 60; Lipase 19 U/L (8-78); Potassium 3.9 mmol/L (3.3-5.1); Sodium 139 mmol/L (135-145); Total Protein 6.6 g/dL (6.5-8.0)
[2025-03-17 23:13] VITALS: BP 134/80; PULSE 93; RESP 16; TEMP 37.1; O2SAT 96
--- OUTSIDE RECORDS SUMMARY | 2025-03-17 23:23 | XMS_ITS | Encounter Summary ---
Author Organization [facility] Address [address] [place] [id number] Phone Care Team Providers Care Health Associate Name Role Phone Lucy Nava MD Primary Care Provider Encounter Details Date Type Department Care Team (Late st Contact Info) Description 04/17/2011 Documentation [facility] [place] Family Medicine [address] [place] [address] Family Medicine, Physician [address] [place], [place] [phone] Social History Tobacco Use Types Packs/Day Years [...] on filedocumented in this encounter Care Teams Health Associate Relationship Specialty Start Date End Date Lucy Nava MD [address] [place] [address] PCP - General 11/21/16 07/21/22 documented as of this encounter
--- OUTSIDE RECORDS SUMMARY | 2025-03-17 23:23 | XMS_ITS | Encounter Summary ---
Author Organization [facility] Address [address] [place] [address] Phone Care Team Providers Care Rug Repairer Name Role Phone Lucy Nava MD Primary Care Provider Encounter Details Date Type Department Care Team (Late st Contact Info) Description 11/27/2016 Conversion Encounter [facility] [place] [address] [place] [address] Social History Tobacco Use Types Packs/Day Years [...] on filedocumented in this encounter Care Teams Rug Repairer Relationship Specialty Start Date End Date Lucy Nava MD [address] [place] [address] PCP - General 11/21/16 07/21/22 documented as of this encounter
--- OUTSIDE RECORDS SUMMARY | 2025-03-17 23:23 | XMS_ITS | Clinical Summary ---
Author Organization [employer] Address [address] [facility] [address] [place] [address] Care Team Providers Care Cash Applications Representative Name Role Phone Unavailable Primary Care [...] patient's age to complete this topic [place] [address] [place] [address] (O)
--- OUTSIDE RECORDS SUMMARY | 2025-03-17 23:23 | XMS_ITS | Encounter Summary ---
Author Organization [facility] Address [address] [place] [address] Phone Care Team Providers Care Staff Command And Control Officer Name Role Phone Lucy Nava MD Primary Care Provider Encounter Details Date Type Department Care Team (Late st Contact Info) Description 07/30/2012 Documentation [facility] [place] Family Medicine [address] [place] [address] Family Medicine, Physician [address] [place], [place] [phone] Social History Tobacco Use Types Packs/Day Years [...] on filedocumented in this encounter Care Teams Staff Command And Control Officer Relationship Specialty Start Date End Date Lucy Nava MD [address] [facility] [place] [address] PCP - General 11/21/16 07/21/22 documented as of this encounter
--- OUTSIDE RECORDS SUMMARY | 2025-03-17 23:23 | XMS_ITS | Clinical Summary ---
Author Organization [facility] ity Address [address] [place] [address] Care Team Providers Care School Plant Consultant Name Role Phone Lydia Fuentes Primary Care [...] RESULTING AGENCY - 12/10/2017 10:37 AM EDT [id number] RESULTS OF GEN-PROBE APTIMA COMBO 2 ASSAY CHLAMYDIA: NEGATIVE N. GONORRHOEAE: NEGATIVE RAJENDRA JUAREZ M.D., PATHOLOGIST (CASE ELECTRONICALLY SIGNED 12 10 2017) CLINICAL INFORMATION: Z12.4, Z34.81 Z34.81 ENCOUNTER FOR SUPERVISION OF OTHER NORMAL , FIRST TRIMESTER SOURCE: THINPREP PAP FOR CT/GC GROSS DESCRIPTION: THINPREP VIAL RECEIVED. PHYSICIANS LAUREEN MONTOYA/#/ Laureen Montoya [facility] LAB CYTOLOGY ORDERABLES Final Result [facility] LAB RESULTING AGENCY from Last 3 Months or Most Recently Relevant to Health Maintenance Care Teams School Plant Consultant Relationship Specialty Start Date End Date Lydia Fuentes DO PCP - General Internal Medicine 07/07/18
--- OUTSIDE RECORDS SUMMARY | 2025-03-17 23:23 | XMS_ITS | Clinical Summary ---
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 Procedure Name Priority Date/Time Associated Diagnosis Comments CHLAMYDIA AND GONORRHEA, AMPLIFIED Routine 02/22/2015 2:14 PM EST from Last 3 Months or Most Recently Relevant to Health Maintenance Results * Due to [place] state law, this organization might not be sharing sensitive test results. * Chlamydia and Gonorrhoea, Amplified (02/22/2015 2:14 PM EST) URINE CHLAMYDIA AMP PROBE NEGATIVE [facility] Comment: No Chlamydia Trachomatis RNA detected in this patient's sample (REFERENCE RANGE/NORMAL VALUE: NOT DETECTED) URINE GC AMP PROBE NEGATIVE [facility] Comment: No Neisseria Gonorrhoeae RNA detected in this patient's sample (REFERENCE RANGE/NORMAL VALUE: NOT DETECTED) NOTE: This test uses climate change analyst-mediated amplification method to detect rRNA from C.Trachomatis [...] without risk of sexual abuse. Consult the [facility] if needed. Contact phone number . Therapeutic failure or success cannot be determined with the Aptima Combo2 assay since nucleic acid may persist following appropriate antimicrobial therapy. The Centers for Disease Control and Prevention (CDC) recommends confirmatory retesting using culture or a different nucleic acid amplification test when positive results occur, if indicated. Testing performed or reported by [facility], a Service of [facility], [address] [place] [address] Ant Banegas MD, PhD, Sustainability Project Manager 02/22/2015 2:14 PM EST Narrative [facility] - 02/22/2015 2:14 PM EST URINE CHLAMYDIA GC AMP PROBE us Luciana Marsh NP LAB MICROBIOLOGY - GENERAL ORDER ALE Final Result [facility] [address] [place] [address], from Last 3 Months or Most Recently Relevant to Health Maintenance
--- OUTSIDE RECORDS SUMMARY | 2025-03-17 23:23 | XMS_ITS | Encounter Summary ---
Author Organization [facility] Address [address] [place] [phone] Phone Care Team Providers Care Oracle Engineer Name Role Phone Lucy Nava MD Primary Care Provider Encounter Details Date Type Department Care Team (Late st Contact Info) Description 07/29/2012 Documentation [facility] [place] Family Medicine [address] [place] [address] Family Medicine, Physician [address] [place], [place] [phone] Social History Tobacco Use Types Packs/Day Years [...] on filedocumented in this encounter Care Teams Oracle Engineer Relationship Specialty Start Date End Date Lucy Nava MD [address] [facility] [place] [address] PCP - General 11/21/16 07/21/22 documented as of this encounter
[2025-03-17 23:34] VITALS: BP 111/67; PULSE 85; RESP 16; TEMP 36.6; O2SAT 98
--- NOTE | 2025-03-17 23:55 | ED.GENADULT ---
HPI - General Adult General Chief complaint: Abdominal Pain Stated complaint: Stomach Pain Time Seen by Provider: 03/17/25 23:55 Source: patient Mode of arrival: ambulatory Limitations: no limitations History of Present Illness ED Provider: Dr. Radha Scott HPI narrative: Patient comes to the emergency room complaining of left-sided flank pain that started suddenly a proximally 13 hours ago. Patient complaining of nausea vomiting. Denies history of kidney stones. Denies hematuria or dysuria. Patient states that it feels like something is stabbing her intermittently in the right flank. Related Data Previous Rx's ?Medication ?Instructions ?Recorded albuterol sulfate 90 mcg/actuation 2 inh inhalation Q4-6H PRN 11/09/24 aerosol inhaler (Ventolin HFA) shortness of breath or wheezing #8.5 grams hydroxyzine HCl 25 mg tablet 25 mg PO BID PRN anxiety #60 tabs 11/09/24 omeprazole 40 mg capsule,delayed 40 mg PO DAILY #30 caps 01/04/25 release lamotrigine 25 mg tablet (Lamictal) 50 mg (2 x 25 mg) PO DAILY 30 days 02/03/25 #60 tabs dextroamphetamine-amphetamine 5 mg 5 mg PO DAILY #30 tabs 03/07/25 tablet (Adderall) dextroamphetamine-amphetamine ER 10 mg PO QAM #30 caps 03/07/25 10 mg 24hr capsule,extend release (Adderall XR) ibuprofen 600 mg tablet 600 mg PO Q8H PRN fever or pain 03/18/25 #20 tabs ondansetron HCl 4 mg tablet 4 mg PO Q6H PRN nausea and 03/18/25 vomiting #14 tabs Allergies Allergy/AdvReac Type Severity Reaction Status Date / Time No Known Allergies Allergy Verified 03/17/25 20:21 Review of Systems Review of Systems: Constitutional : No Weight loss, No Fever, No Chills, No Night Sweats, No Fatigue, No Malaise ENT/Mouth : No Hearing loss, No Ear Pain, No Nasal Congestion, No Sinus Pain, No Hoarseness, No sore throat, No Rhinorrhea, No Swallowing Difficulty Eyes: No Eye Pain, No Swelling, No Redness, No Foreign Body, No Discharge, No Vision Changes Cardiovascular : No Chest Pain, No SOB, No Dyspnea on Exertion, No Orthopnea, No Edema, No Palpitations Respiratory : No Cough, No Sputum, No Wheezing, No Smoke Exposure, No Dyspnea Gastrointestinal : No Nausea, No Vomiting, No Diarrhea, No Constipation, No abdominal Pain, No Hematochezia, No Melena Genitourinary : no irregular bleeding, No Dysuria, No Urinary Frequency, No Hematuria, No Urinary Incontinence, No Urgency, complaining of right-sided Flank Pain, No Urinary Flow Changes, No Hesitancy Musculoskeletal : No joint pain, No Myalgias, No Joint Swelling Skin : No Skin Lesions, No rash Neuro : No Weakness, No Numbness, No Paresthesias, No Loss of Consciousness, No Dizziness, No Headache Psych : No Anxiety/Panic, No Depression, No SI/HI/AH/VH, No Social Issues, Heme/Lymph: No Bruising, No Bleeding,No Lymphadenopathy Endocrine : No Polyuria, No Polydipsia, No Temperature Intolerance [facility] Past Medical History Medical History Exercise-induced asthma Heart palpitations Depression Panic attack Anxiety ACL tear Hx of ectopic Surgical History H/O section Family History Family History Paternal Grandfather HTN (hypertension) Lymphoma Esophageal cancer Mother Alcoholism OCD (obsessive compulsive disorder) Bipolar 2 disorder Father No problems noted. Maternal Grandfather COPD (chronic obstructive pulmonary disease) Maternal Grandmother COPD (chronic obstructive pulmonary disease) Social History Social History Housing: House Alcohol intake: never Patient Tobacco Use Status: Former Tobacco user Tobacco use type: Cigarette Cigarettes Per Day: 8 Smoked in Last 30 Days: Yes e-Cigarette/Vaping Use: Never Used Use of substances other than those prescribed or required for medical reasons: No Advance Directives: No Advance Directives Information Provided: No Do you have a plan to hurt others: No Plan service: No Current occupational status: 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 Patient states that she has a family emergency and needs to leave immediately. Patient requesting to be discharged Vital Signs: Vital Signs - 24 hr 12/05/25 20:19 03/17/25 23:13 03/17/25 23:34 Temperature 98.0 F 98.7 F 97.8 F Pulse Rate 125 H 93 85 Respiratory Rate 24 H 16 16 Blood Pressure 144/101 H 134/80 111/67 Pulse Oximetry 100 96 98 Oxygen Delivery Method Room Air Room Air Room Air BMI result Body Mass Index 29.7 Medications Administered Discontinued Medications Generic Name Dose Route Start Last Admin Trade Name Dean PRN Reason Stop Dose Admin Ondansetron HCl 4 mg 03/17/25 20:24 03/17/25 20:25 Ondansetron Odt 4 Mg Tab.Rapdis TRANSLINGU 03/17/25 20:25 4 mg ONCE ONE Administration Medical Decision Making Medical Decision Making [facility] Narrative: I discussed the labs with the patient, no significant abnormality patient's hematology or chemistry, urinalysis negative for UTI but there is a small amount of blood in the urine, hCG negative I discussed with the patient that given her symptoms, it is possible that she is passing a kidney stone. Without a CT scan it is impossible to tell how big the stone is. I discussed with the patient that the differentials also include appendicitis, acute cholecystitis. I discussed with the patient that if she has any worsening or ongoing symptoms, she needs to return to the emergency room, patient agrees with plan. Patient requesting a prescription for nausea to be sent to her pharmacy and pain medication. Differential Diagnosis Differential Diagnoses: The differential diagnosis associated with the presentation includes (As above) Lab Data [facility] Lab Attestation statement: I reviewed the patient's lab results. 03/17/25 21:51 03/17/25 21:51 Labs: Lab Results 03/17/25 Range/Units 21:51 WBC 10.5 (4.8-10.8) X10*3/uL RBC 4.21 (4.20-5.50) X10*6/uL Hgb 12.5 (12.0-16.0) g/dl Hct 36.3 L (37.0-47.0) % MCV 86.2 (80.0-98.0) fL MCH 29.7 (27.0-33.0) pg MCHC 34.4 (31.0-35.0) g/dl RDW 12.4 (11.0-16.0) % Plt Count 298 (160-400) X10*3/uL MPV 9.8 (9.4-12.3) fL Immature Gran % (Auto) 0.4 (0.0-0.4) % Neut % (Auto) 68.2 (45-73) % Lymph % (Auto) 20.7 (20-40) % Nolan % (Auto) 6.9 (2-11) % Eos % (Auto) 3.3 (0-4) % Baso % (Auto) 0.5 (0-2) % Lymph # (Auto) 2.2 (1.2-4.9) X10*3/uL Nolan # (Auto) 0.7 (0.1-1.2) X10*3/uL Eos # (Auto) 0.4 (0.0-0.4) X10*3/uL Baso # (Auto) 0.1 (0.0-0.2) X10*3/uL Abs Immat Gran (auto) 0.04 H (0.00-0.03) X10*3/uL Absolute Neuts (auto) 7.2 (2.0-8.3) x10*3/uL Absolute Nucleated RBC 0.000 (0.0-0.012) X10*3/uL Nucleated RBC % (auto) 0.0 (0.0-0.2) /100WBC Sodium 139 (135-145) mmol/L Potassium 3.9 (3.3-5.1) mmol/L Chloride 111 H (96-108) mmol/L Carbon Dioxide 23 (22-29) mmol/L Anion Gap 9 L (12-20) BUN 11 (9-16) mg/dL Creatinine 0.79 (0.5-1.4) mg/dL Estim Creat Clear Calc 113.3 Estimated GFR > 60 Random Glucose 103 (60-115) mg/dL Calcium 8.6 (8.4-10.2) mg/dL Total Bilirubin 0.3 (0.0-1.0) mg/dL AST 16 (5-31) U/L ALT 18 (0-31) U/L Alkaline Phosphatase 84 (39-117) U/L Total Protein 6.6 (6.5-8.0) g/dL Albumin 4.6 (3.5-5.0) g/dL Lipase 19 (8-78) U/L Beta HCG, Quant < 2 mIU/mL Urine Color Yellow Urine Appearance Cloudy Urine pH 7.5 (5.0-9.0) Ur Specific Mobile 1.020 (1.005-1.025) Urine Protein Negative (Neg-Trace) mg/dL Urine Glucose (UA) Negative (Negative) mg/dL Urine Ketones Negative (Negative) mg/dL Urine Blood Small (1+) H (Negative) Urine Nitrite Negative (Negative) Ur Leukocyte Esterase Negative (Negative) Urine RBC 0-2 (0-2) /HPF Urine WBC 0-5 (0-5) /HPF Ur Squamous Epith Cells 3-5 (0-2) /HPF Urine Bacteria Trace (None Seen) Hyaline Casts 0-2 (0-2) /LPF Discharge Plan Discharge Clinical Impression: Acute flank pain Patient Disposition: Home, Self-Care Instructions: Abdominal Pain (ED), Flank Pain (ED) Additional Instructions: Please follow-up with your primary care physician tomorrow. If you have any worsening or new symptoms, please return to the emergency room or call 911 Prescriptions: New ondansetron HCl 4 mg tablet 4 mg PO Q6H PRN (Reason: nausea and vomiting) Qty: 14 0RF ibuprofen 600 mg tablet 600 mg PO Q8H PRN (Reason: fever or pain) Qty: 20 0RF No Action lamotrigine [Lamictal] 25 mg tablet 50 mg PO DAILY 30 Days Qty: 60 2RF dextroamphetamine-amphetamine [Adderall XR] 10 mg capsule,extended release 24hr 10 mg PO QAM Qty: 30 0RF Rx Instructions: Partial Fill upon patient request. dextroamphetamine-amphetamine [Adderall] 5 mg tablet 5 mg PO DAILY Qty: 30 0RF Rx Instructions: Partial Fill upon patient request. albuterol sulfate [Ventolin HFA] 90 mcg/actuation HFA aerosol inhaler 2 inh inhalation Q4-6H PRN (Reason: shortness of breath or wheezing) Qty: 8.5 3RF hydroxyzine HCl 25 mg tablet 25 mg PO BID PRN (Reason: anxiety) Qty: 60 2RF Rx Instructions: repeat dose x1 if the 25 mg does not work omeprazole 40 mg capsule,delayed release(DR/EC) 40 mg PO DAILY Qty: 30 3RF Print Language: Polish
--- NOTE | 2025-03-18 00:09 | PC.NURSE ---
PT from home reports she had a spontaneous onset of 10/10 epigastric/LUQ ABD pain radiating to her lumbar back described as stabbing. PT reports approx. 4 hours after her pain onset she developed nausea/vomiting reports only bile w/ no blood. PT denies any diarrhea and on inspection/palpation there are no visible abnormalities and ABD is soft/non-tender with no distention, rigidity, or rebound. Denies any urinary complications. VSS.
[2025-03-18 00:51] VITALS: BP 132/87; PULSE 85; RESP 16; TEMP 36.6; O2SAT 98
--- NOTE | 2025-03-18 00:53 | PC.NURSE ---
PT reported she had to leave the hospital due to a family emergency. PT was assessed by provider and discharged following an explanation of her risks of leaving prior to having a CT scan done.
== END 2025-03-18 00:56 | disposition home or self-care (01) ==
PROVIDERS: Physician Assistant Medical; Student in an Organized Health Care Education/Training Program; Emergency Provider Emergency Medicine
DX: R10.22 Pelvic and perineal pain left side (principal); R11.2 Nausea with vomiting, unspecified; Z87.891 Personal history of nicotine dependence; Z79.899 Other long term (current) drug therapy
CPT/HCPCS: 36415; 80053; 81001; 83690; 84702; 85025; 99284

== ENCOUNTER 2025-03-22 14:05 | Emergency (ER) | payer OTHER, SELFPAY ==
--- NOTE | ~2025-03-22 | CT_ITS ---
CLINICAL HISTORY: L CVAT; ? Renal Stone CT abdomen and pelvis with contrast Comparison: US/SR - US ABDOMEN LIMITED - 03/22/25 14:57 EST Findings: The lung bases are clear. Unremarkable gallbladder and solid organs. No urolithiasis. No bowel obstruction, pneumoperitoneum, or pneumatosis. Visualized appendix is normal. An IUD is in the uterus. Urinary bladder is within normal limits. The bones are intact. IMPRESSION: No acute findings. This document has been electronically signed by: Arturo Ardon MD, PHD on 03/22/2025 23:23:17
--- NOTE | ~2025-03-22 | US_ITS ---
EXAMINATION: US ABDOMEN LIMITED CLINICAL INFORMATION: Pain.. COMPARISON: November 29, 2024. TECHNIQUE: Real-time ultrasound of the gallbladder and left kidney using grayscale technique. FINDINGS: Gallbladder is fluid-filled nondistended. No intraluminal abnormality is. No pericholecystic fluid collection or gallbladder wall thickening. Common bile duct measures 4 m. Left kidney measures 10 cm normal echotexture. Renal cortical thickness is normal. Mild pelvicalyceal fullness. No discrete calcifications. No gross solid or cystic lesion. US/US abdomen limited IMPRESSION: No cholelithiasis or choledocholithiasis. Mild left hydronephrosis versus extrarenal pelvis. Electronically signed by: Vitor Ham MD 03/22/2025 03:27 PM [facility]
--- NOTE | 2025-03-22 14:24 | ED_ITS ---
HPI - Abdominal Pain General Chief Complaint: Abdominal Pain Stated Complaint: abd and back pain Time Seen by Provider: 03/22/25 20:20 Source: patient Mode of arrival: ambulatory Limitations: no limitations History of Present Illness ED Provider: Alex SANDOVAL HPI narrative: The patient is a 29-year-old female who presents with 5?6 days of left-sided abdominal pain. Pain began suddenly while at work, described as 10/10 severity and severe enough to cause her to double over. She was evaluated in this ED on Thursday but left prior to imaging studies. Since onset she has tried ibuprofen and acetaminophen with only mild relief. She reports associated nausea and vomiting. She denies hematuria, dysuria, or other urinary tract infection symptoms. She denies fevers, stating the highest measured temperature was 99 ?F. She has no prior similar episodes and no history of kidney stones. She is currently menstruating. Surgical history notable for left fallopian tube removal following ruptured ectopic in 2021; uterus and both ovaries remain intact. No other abdominal surgeries reported. Related Data Previous Rx's ?Medication ?Instructions ?Recorded albuterol sulfate 90 mcg/actuation 2 inh inhalation Q4 -6H PRN 11/09/24 aerosol inhaler (Ventolin HFA) shortness of breath or wheezing #8.5 grams hydroxyzine HCl 25 mg tablet 25 mg PO BID PRN anxiety #60 tabs 11/09/24 omeprazole 40 mg capsule,delayed 40 mg PO DAILY #30 ca ps 01/04/25 release lamotrigine 25 mg tablet (Lamictal) 50 mg (2 x 25 mg) PO DAILY 30 days 02/03/25 #60 tabs dextroamphetamine-amphetamine 5 mg 5 mg PO DAILY #30 t abs 03/07/25 tablet (Adderall) dextroamphetamine-amphetamine ER 10 mg PO QAM #30 caps 03/07/25 10 mg 24hr capsule,extend release (Adderall XR) ibuprofen 600 mg tablet 600 mg PO Q8H PRN fever or p ain 03/18/25 #20 tabs ondansetron HCl 4 mg tablet 4 mg PO Q6H PRN nausea and 03/18/25 vomiting #14 tabs Allergies Allergy/AdvReac Type Severity Reaction Status Date / Time No Known Allergies Allergy Verified 03/22/25 14:27 Review of Systems Review of Systems Yes all other systems are reviewed and are negative PMFSH Past Medical History Medical History Exercise-induced asthma Heart palpitations Depression Panic attack Anxiety ACL tear Hx of ectopic Surgical History H/O section Family History Family History Paternal Grandfather HTN (hypertension) Lymphoma Esophageal cancer Mother Alcoholism OCD (obsessive compulsive disorder) Bipolar 2 disorder Father No problems noted. 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 Vital signs as documented. HEAD: Atraumatic, normocephalic. EYES: EOMs grossly intact, pupils equal, conjunctiva clear, no exudate. ENT: Nares patent, no discharge. Airway patent, no audible stridor, visible mucosa is pink and moist without noted lesions. NECK: Trachea is midline, no obvious masses or gross abnormalities. CHEST: Symmetric movement, normal appearance. LUNGS: LS present and CTAB, no w/r/r. Non-labored work of breathing. CARDIAC: Regular Rhythm, S1/S2 appreciated, no murmurs, rubs or gallops. ABDOMEN: Abdomen soft x4 quadrants, positive tenderness to palpation of the left upper quadrant, negative rebound, no palpable masses or organomegaly. Positive left CVAT. : Deferred. EXTREMITIES: Normal tone, moves all extremities spontaneously without reported pain. No obvious acute injury or deformity noted. NEURO: Alert and oriented x3, CN II-XII appear grossly intact. Cerebellar Functioning grossly intact. No obvious sensory or motor deficits. Speech clear and appropriate. PSYCH: normal affect, appropriate eye contact, fluid speech, with appropriate response to questioning. No reported suicidality or homicidality. SKIN: Warm, dry, color appropriate, normal turgor. No rashes noted. Course Course Course Narrative: This is an RME: Additional HPI, ROS, PE not included below will be deferred to primary provider. RME assessment and note performed by: Neena Curtis PA-C This is a [id number], with a hx of GERD, who presents to the ER with complaints of left sided abdominal pain/flank pain. Plan: Labs, UA, US, further ER eval needed Medical Decision Making Medical Decision Making MDM Narrative: 8:38 PM 03/22/2025 (Ninoska SANDOVAL): The patient is a 29-year-old female who presents with 5?6 days of left-sided abdominal pain. Pain began suddenly while at work, described as 10/10 severity and severe enough to cause her to double over. She was evaluated in this ED on Thursday but left prior to imaging studies. Since onset she has tried ibuprofen and acetaminophen with only mild relief. She reports associated nausea and vomiting. She denies hematuria, dysuria, or other urinary tract infection symptoms. She denies fevers, stating the highest measured temperature was 99 ?F. She has no prior similar episodes and no history of kidney stones. She is currently menstruating. Surgical history notable for left fallopian tube removal following ruptured ectopic in 2021; uterus and both ovaries remain intact. No other abdominal surgeries reported. On exam patient appears restless, unable to find a comfortable position, with positive left CVAT and tenderness of the left upper quadrant. The patient's laboratory evaluation demonstrates no leukocytosis, anemia, electrolyte abnormality or BENJAMÍN. The patient's LFTs are unremarkable, lipase is normal. The patient's urinalysis is still pending. Chart review of visit on 03/17 demonstrates microscopic hematuria without evidence of UTI. The patient was sent from triage for an abdominal ultrasound which shows no evidence of cholelithiasis or choledocholithiasis. The patient's ultrasound did include the left kidney which shows mild left hydronephrosis versus an extrarenal pelvis. Patient's symptoms appear consistent with left ureteral stone, we will obtain CT abdomen and pelvis to rule out other acute intra-abdominal pathology and evaluate for suspected stone. The patient will be treated with Toradol, morphine, Zofran, and IV fluid hydration. 11:35 PM 03/22/2025 (Ninoska SANDOVAL): The patient's CT demonstrates no acute intra-abdominal pathology, no evidence of stone or hydronephrosis. At this time there is no evidence of an acute emergent process causing the patient's pain. The patient has still not provided a urine sample, we will encourage provision of urinalysis to ensure no UTI despite unremarkable urinalysis 5 days ago. 2:16 AM 03/23/2025 (Ninoska SANDOVAL): The patient's urinalysis has resulted and shows proteinuria and increased specific gravity, however shows no blood, nitrites, leukocyte esterase, or WBCs. There are greater than 20 squamous epithelial cells and trace bacteria, no concern for infection at this time. The patient will be discharged with instructions to follow up with PCP for re- evaluation and additional management of pain. Admission/Observation Consideration of admission/observation: Escalation of care including admission/observation considered Lab Data MDM Lab Attestation statement: I reviewed the patient's lab results. 03/22/25 15:19 03/22/25 15:19 Labs: Lab Results 03/22/25 03/23/25 Range/Units 15:19 01:12 WBC 6.2 (4.8-10.8) X10*3/uL RBC 4.42 (4.20-5.50) X10*6/uL Hgb 12.9 (12.0-16.0) g/dl Hct 38.0 (37.0-47.0) % MCV 86.0 (80.0-98.0) fL MCH 29.2 (27.0-33.0) pg MCHC 33.9 (31.0-35.0) g/dl RDW 12.0 (11.0-16.0) % Plt Count 290 (160-400) X10*3/uL MPV 9.6 (9.4-12.3) fL Immature Gran % (Auto) 0.2 (0.0-0.4) % Neut % (Auto) 54.5 (45-73) % Lymph % (Auto) 35.6 (20-40) % [place] % (Auto) 6.3 (2-11) % Eos % (Auto) 2.9 (0-4) % Baso % (Auto) 0.5 (0-2) % Lymph # (Auto) 2.2 (1.2-4.9) X10*3/uL [place] # (Auto) 0.4 (0.1-1.2) X10*3/uL Eos # (Auto) 0.2 (0.0-0.4) X10*3/uL Baso # (Auto) 0.0 (0.0-0.2) X10*3/uL Abs Immat Gran (auto) 0.01 (0.00-0.03) X10*3/uL Absolute Neuts (auto) 3.4 (2.0-8.3) x10*3/uL Absolute Nucleated RBC 0.000 (0.0-0.012) X10*3/uL Nucleated RBC % (auto) 0.0 (0.0-0.2) /100WBC Sodium 138 (135-145) mmol/L Potassium 3.8 (3.3-5.1) mmol/L Chloride 108 (96-108) mmol/L Carbon Dioxide 23 (22-29) mmol/L Anion Gap 11 L (12-20) BUN 12 (9-16) mg/dL Creatinine 0.70 (0.5-1.4) mg/dL Estim Creat Clear Calc 128.7 Estimated GFR > 60 Random Glucose 96 (60-115) mg/dL Calcium 8.9 (8.4-10.2) mg/dL Magnesium 2.0 (1.6-2.6) mg/dL Total Bilirubin 0.4 (0.0-1.0) mg/dL Direct Bilirubin 0.2 (0.0-0.5) mg/dL AST 15 (5-31) U/L ALT 15 (0-31) U/L Alkaline Phosphatase 81 (39-117) U/L Total Protein 6.7 (6.5-8.0) g/dL Albumin 4.7 (3.5-5.0) g/dL Lipase 10 (8-78) U/L Beta HCG, Quant < 2 mIU/mL Urine Color Yellow Urine Appearance Clear Urine pH 5.5 (5.0-9.0) Ur Specific [place] >= 1.030 H (1.005-1.025) Urine Protein 30 (1+) H (Neg-Trace) mg/dL Urine Glucose (UA) Negative (Negative) mg/dL Urine Ketones 15 (Negative) mg/dL Urine Blood Negative (Negative) Urine Nitrite Negative (Negative) Ur Leukocyte Esterase Negative (Negative) Urine RBC 0-2 (0-2) /HPF Urine WBC 0-5 (0-5) /HPF Ur Squamous Epith Cells >20 (0-2) /HPF Urine Bacteria Trace (None Seen) Hyaline Casts 0-2 (0-2) /LPF Radiology Impression Discussion of test interpretation with radiology: I have reviewed the radiologist's reading. Radiologist Impression: US ABDOMEN LIMITED CLINICAL INFORMATION: Pain.. COMPARISON: November 29, 2024. TECHNIQUE: Real-time ultrasound of the gallbladder and left kidney using grayscale technique. FINDINGS: Gallbladder is fluid-filled nondistended. No intraluminal abnormality is. No pericholecystic fluid collection or gallbladder wall thickening. Common bile duct measures 4 m. Left kidney measures 10 cm normal echotexture. Renal cortical thickness is normal. Mild pelvicalyceal fullness. No discrete calcifications. No gross solid or cystic lesion. US/US abdomen limited IMPRESSION: No cholelithiasis or choledocholithiasis. Mild left hydronephrosis versus extrarenal pelvis. Electronically signed by: Vitor Ham MD 03/22/2025 03:27 [address] [facility] CT abdomen and pelvis with contrast Comparison: US/SR - US ABDOMEN LIMITED - 03/22/25 14:57 EST Findings: The lung bases are clear. Unremarkable gallbladder and solid organs. No urolithiasis. No bowel obstruction, pneumoperitoneum, or pneumatosis. Visualized appendix is normal. An IUD is in the uterus. Urinary bladder is within normal limits. The bones are intact. IMPRESSION: No acute findings. This document has been electronically signed by: Arturo Ardon MD, PHD on 03/22/2025 23:23:17 External Record Review External record reviewed: Outpatient record and Prior outpatient labs Prescription Management I considered prescription management with: Pain Medication and Antibiotic Medications Administered Discontinued Medications Generic Name Dose Route Start Last Admin Trade Name Freq PRN Reason Stop Dose Admin Sodium Chloride 1,000 mls @ 999 mls/hr 03/22/25 20:45 03/22/25 23:23 Ns IV 03/22/25 21:45 Infused .Q1H1M DANK Infusion Iohexol 100 ml 03/22/25 22:00 03/22/25 22:00 Iohexol 350 Mg/Ml 100 Ml Infus..Btl IV 03/22/25 22:01 85 ml ONCE ONE Administration Ketorolac Tromethamine 15 mg 03/22/25 20:33 03/22/25 20:43 Ketorolac Tromethamine 15 Mg/Ml Vial IVPUSH 03/22/25 20:34 15 mg ONCE ONE Administration Morphine Sulfate 4 mg 03/22/25 20:33 03/22/25 20:45 Morphine Sulfate 4 Mg/Ml Cartridge IVPUSH 03/22/25 20:34 4 mg ONCE ONE Administration Protocol Ondansetron HCl 4 mg 03/22/25 20:33 03/22/25 20:42 Ondansetron Hcl 4 Mg/2 Ml Vial IVPUSH 03/22/25 20:34 4 mg ONCE ONE Administration Discharge Plan Discharge Clinical Impression: Acute flank pain Patient Disposition: Home, Self-Care Instructions: Abdominal Pain (ED), Flank Pain (ED) Additional Instructions: Thank you for choosing [facility]'s Emergency Department for your care today. Thankfully your laboratory evaluation, urinalysis, CT, exam, and vital signs today are reassuring. Your labs show no evidence of a systemic infection, anemia, electrolyte abnormality, kidney dysfunction, liver dysfunction, , or urinary tract infection. At this time there is no indication for admission to the hospital or continued ED observation, and it is safe to discharge you home. Your CT shows no evidence of a kidney stone, bowel obstruction, or other acute intra-abdominal process requiring emergent surgical or other intervention. There is no indication for antibiotics. The exact cause of your symptoms isn't entirely clear, however your symptoms may have been due to a kidney stone which passed prior to your CT examination. You should take alternating (staggered) doses of ibuprofen 600mg and Tylenol 1000mg every 4 hours as needed for any additional pain. Please stay well hydrated and get plenty of rest. Please follow up with your primary care physician for re-evaluation, additional management of your symptoms, and continued preventative care. If you do not have a primary care physician, please call the [facility] at [phone] to establish a new primary care physician. While waiting to establish your new primary care physician, you can call our Walk[facility]in [facility] at [phone] for non-emergency needs. Please return to the emergency department if you develop a severe or sudden change in your symptoms, a fever over 100.4 that does not improve with Tylenol or Ibuprofen, recurrent vomiting, or any other new or worsening symptoms or concerns. Prescriptions: No Action lamotrigine [Lamictal] 25 mg tablet 50 mg PO DAILY 30 Days Qty: 60 2RF dextroamphetamine-amphetamine [Adderall XR] 10 mg capsule,extended release 24hr 10 mg PO QAM Qty: 30 0RF Rx Instructions: Partial Fill upon patient request. dextroamphetamine-amphetamine [Adderall] 5 mg tablet 5 mg PO DAILY Qty: 30 0RF Rx Instructions: Partial Fill upon patient request. ondansetron HCl 4 mg tablet 4 mg PO Q6H PRN (Reason: nausea and vomiting) Qty: 14 0RF ibuprofen 600 mg tablet 600 mg PO Q8H PRN (Reason: fever or pain) Qty: 20 0RF albuterol sulfate [Ventolin HFA] 90 mcg/actuation HFA aerosol inhaler 2 inh inhalation Q4-6H PRN (Reason: shortness of breath or wheezing) Qty: 8.5 3RF hydroxyzine HCl 25 mg tablet 25 mg PO BID PRN (Reason: anxiety) Qty: 60 2RF Rx Instructions: repeat dose x1 if the 25 mg does not work omeprazole 40 mg capsule,delayed release(DR/EC) 40 mg PO DAILY Qty: 30 3RF Referrals: Kar Machado FNP-C [Primary Care Provider, Internal Medicine] Clinical Impression: Acute flank pain Stand Alone Forms: Work/School Release Interventions: ED Discharge Assessment Last Done: 03/23/25 02:43 Discharge Date/Time: 03/23/25 02:44 Print Language: Cameroonian
[2025-03-22 14:25] VITALS: BP 143/81; PULSE 106; RESP 20; TEMP 36.8; O2SAT 100; BMI 28.0
--- NOTE | 2025-03-22 14:29 | ECG_ITS ---
Test Reason : tachycardia Blood Pressure : */* mmHG Vent. Rate : 100 BPM Atrial Rate : 100 BPM P-R Int : 130 ms QRS Dur : 84 ms QT Int : 366 ms P-R-T Axes : 64 35 55 degrees QTcB Int : 472 ms Normal sinus rhythm Normal ECG When compared with ECG of 14-Jul-2022 12:57, No significant change was found Referred By: Neena Curtis Electronically Signed By: OLVIN PARK MD
[2025-03-22 15:22] LABS: MANUAL DIFF FLAG NO
[2025-03-22 15:24] LABS: Hematocrit 38.0 % (37.0-47.0); Hemoglobin 12.9 g/dl (12.0-16.0); Imm Gran Abs Auto 0.01 X10*3/uL (0.00-0.03); Imm Gran Pct Auto 0.2 % (0.0-0.4); Lymphocytes Absolute Auto 2.2 X10*3/uL (1.2-4.9); Mean Corpuscular HGB Conc 33.9 g/dl (31.0-35.0); Mean Corpuscular Hemoglobin 29.2 pg (27.0-33.0); Mean Corpuscular Volume 86.0 fL (80.0-98.0); NRBC Abs Auto 0.000 X10*3/uL (0.0-0.012); NRBC Pct Auto 0.0 /100WBC (0.0-0.2); Platelet Count 290 X10*3/uL (160-400); Red Blood Count 4.42 X10*6/uL (4.20-5.50); White Blood Count 6.2 X10*3/uL (4.8-10.8)
[2025-03-22 15:39] LABS: Alanine Aminotransferase 15 U/L (0-31); Albumin Level 4.7 g/dL (3.5-5.0); Alkaline Phosphatase 81 U/L (39-117); Anion Gap 11 (12-20); Aspartate Amino Transferase 15 U/L (5-31); Blood Urea Nitrogen 12 mg/dL (9-16); Calcium 8.9 mg/dL (8.4-10.2); Carbon Dioxide 23 mmol/L (22-29); Chloride 108 mmol/L (96-108); Creatinine Clr Calc Pharmacy 128.7; Estimated Glomerular Filt Rate > 60; Lipase 10 U/L (8-78); Magnesium 2.0 mg/dL (1.6-2.6); Potassium 3.8 mmol/L (3.3-5.1); Sodium 138 mmol/L (135-145); Total Protein 6.7 g/dL (6.5-8.0)
[2025-03-22 19:58] VITALS: BP 134/76; PULSE 83; RESP 18; O2SAT 100
[2025-03-22] MEDS: iohexoL 350 MG/ML 100 ML INFUS..BTL IV (22:00)
[2025-03-23 00:54] VITALS: BP 103/61; PULSE 72; RESP 14; TEMP 36.8; O2SAT 98
--- OUTSIDE RECORDS SUMMARY | 2025-03-23 01:00 | XMS_ITS | Clinical Summary ---
Author Organization [facility] Address [address] [place] [address] Phone Care Team Providers Care Children'S Ministry Director Name Role Phone Unavailable Primary Care Provider [...] complete this topic Procedures * Due to [place] [employer] law, this organization might not be sharing sensitive test results. Procedure Name Priority Date/Time Associated Diagnosis Comments CHLAMYDIA AND GONORRHEA, AMPLIFIED Routine 02/22/2015 2:14 PM EST from Last 3 Months or Most Recently Relevant to Health Maintenance Results * Due to [place] state law, this organization might not be [...] VALUE: NOT DETECTED) NOTE: This test uses jigmaker-mediated amplification method to detect rRNA from C.Trachomatis [...] if indicated. Testing performed or reported by [facility], a Service of [employer], [address] [place] [address] Ant Banegas MD, PhD, Health Unit Supervisor 02/22/2015 2:14 PM EST Narrative [facility] - 02/22/2015 2:14 PM EST URINE CHLAMYDIA GC AMP PROBE us Luciana Marsh NP LAB MICROBIOLOGY - GENERAL ORDER ALE Final Result [facility] [address] [place] [address], from Last 3 Months or Most Recently Relevant to Health Maintenance
--- OUTSIDE RECORDS SUMMARY | 2025-03-23 01:00 | XMS_ITS | Encounter Summary ---
Author Organization [facility] Address [address] [place] [id number] Phone Care Team Providers Care Loss Prevention Manager Name Role Phone Lucy Nava MD Primary Care Provider Encounter Details Date Type Department Care Team (Late st Contact Info) Description 07/30/2012 Documentation [facility] [place] [address] [place] [address] Family Medicine, Physician [address] [place], [place] [id number] Social History Tobacco Use Types Packs/Day Years [...] on filedocumented in this encounter Care Teams Loss Prevention Manager Relationship Specialty Start Date End Date Lucy Nava MD [address] [facility] [place] [address] PCP - General 11/21/16 07/21/22 documented as of this encounter
--- OUTSIDE RECORDS SUMMARY | 2025-03-23 01:00 | XMS_ITS | Clinical Summary ---
Author Organization [facility] ity Address [address] [place] [address] Care Team Providers Care Floor Molder Name Role Phone Lydia Fuentes Primary Care [...] RESULTING AGENCY - 12/10/2017 10:37 AM EDT [id number] RESULTS OF GEN-PROBE APTIMA COMBO 2 ASSAY [...] Recently Relevant to Health Maintenance Care Teams Floor Molder Relationship Specialty Start Date End Date Lydia Fuentes DO PCP - General Internal Medicine 07/07/18
--- OUTSIDE RECORDS SUMMARY | 2025-03-23 01:00 | XMS_ITS | Encounter Summary ---
Author Organization [facility] Address [address] [place] [address] Phone Care Team Providers Care Event Mgr Name Role Phone Lucy Nava MD Primary Care Provider Encounter Details Date Type Department Care Team (Late st Contact Info) Description 11/27/2016 Conversion Encounter [facility] [place] [address] [place] [address] Social History Tobacco Use Types Packs/Day Years [...] on filedocumented in this encounter Care Teams Event Mgr Relationship Specialty Start Date End Date Lucy Nava MD [address] [place] [address] PCP - General 11/21/16 07/21/22 documented as of this encounter
--- OUTSIDE RECORDS SUMMARY | 2025-03-23 01:00 | XMS_ITS | Encounter Summary ---
Author Organization [facility] Address [address] [place] [phone] Phone Care Team Providers Care Associate Professor Name Role Phone Lucy Nava MD Primary Care Provider Encounter Details Date Type Department Care Team (Late st Contact Info) Description 07/29/2012 Documentation [facility] [place] Family Medicine [address] [place] [address] Family Medicine, Physician [address] [place], [place] [phone] Social History Tobacco Use Types Packs/Day Years [...] filedocumented in this encounter Care Teams Associate Professor Relationship Specialty Start Date End Date Lucy Nava MD [address] [facility] [place] [address] PCP - General 11/21/16 07/21/22 documented as of this encounter
--- OUTSIDE RECORDS SUMMARY | 2025-03-23 01:00 | XMS_ITS | Encounter Summary ---
Author Organization [facility] Address [address] [place] [phone] Phone Care Team Providers Care Checkout Supervisor Name Role Phone Lucy Nava MD Primary Care Provider Encounter Details Date Type Department Care Team (Late st Contact Info) Description 04/17/2011 Documentation [facility] [place] [address] [place] [address] Family Medicine, Physician [address] [place], [place] [phone] Social History Tobacco Use Types Packs/Day Years [...] on filedocumented in this encounter Care Teams Checkout Supervisor Relationship Specialty Start Date End Date Lucy Nava MD [address] [facility] [place] [address] PCP - General 11/21/16 07/21/22 documented as of this encounter
--- OUTSIDE RECORDS SUMMARY | 2025-03-23 01:00 | XMS_ITS | Clinical Summary ---
Author Organization [employer] Address [address] [facility] [address] [place] [address] Care Team Providers Care News Broadcaster Name Role Phone Unavailable Primary Care Provider [...] patient's age to complete this topic [place] [place] [address] (O)
[2025-03-23 01:20] LABS: Appearance Urine Clear; Glucose Urine UA Negative (Negative); PH 5.5 (5.0-9.0); Specific Gravity - Urine >= 1.030 (1.005-1.025); UMIC TRIGGER UACC YES
[2025-03-23 02:43] VITALS: BP 103/61; PULSE 72; RESP 14; TEMP 36.8; O2SAT 98
== END 2025-03-23 02:44 | disposition home or self-care (01) ==
PROVIDERS: Physician Assistant; Physician Assistant Medical; Emergency Provider Emergency Medicine
DX: R10.9 Unspecified abdominal pain (principal); R00.0 Tachycardia, unspecified; Z79.899 Other long term (current) drug therapy
CPT/HCPCS: 36415; 74177; 76705; 80048; 80076; 81001; 83690; 83735; 84702; 85025; 93005; 96361; 96374; 96375; 99285; J1885; J2270; J2405; Q9967

== ENCOUNTER → 2025-03-22 14:26 | Outpatient (BNV) | payer OTHER, SELFPAY | PROVIDERS: Visit Provider Radiology Diagnostic Radiology | DX: R10.A2 Flank pain, left side (principal) | CPT/HCPCS: 74177; 76705 ==

== ENCOUNTER → 2025-03-22 14:29 | Outpatient (BNV) | payer OTHER, SELFPAY | PROVIDERS: Emergency Provider Emergency Medicine; Visit Provider Internal Medicine Cardiovascular Disease | DX: R00.0 Tachycardia, unspecified (principal) | CPT/HCPCS: 93010 ==